=== PATIENT | male | born 1945 | race Caucasian/White ===

== ENCOUNTER 2018-07-10 14:08 | Outpatient (RCR) | payer SELFPAY | END 2018-07-10 23:59 | disposition home or self-care (01) | LOC: CR 14:08 | PROVIDERS: PCP Family Medicine; Visit Provider Family Medicine | DX: Z95.1 Presence of aortocoronary bypass graft (principal); Z51.89 Encounter for other specified aftercare | CPT/HCPCS: S9472 ==

== ENCOUNTER 2018-08-07 13:18 | Outpatient (RCR) | payer SELFPAY | END 2018-08-09 23:59 | disposition home or self-care (01) | LOC: CR 13:18 | PROVIDERS: PCP Family Medicine; Visit Provider Family Medicine | DX: Z95.1 Presence of aortocoronary bypass graft (principal); Z51.89 Encounter for other specified aftercare | CPT/HCPCS: S9472 ==

== ENCOUNTER 2018-08-14 13:00 | Outpatient (RCR) | payer MEDICARE, SELFPAY | END 2018-08-20 08:54 | disposition other institution (70) | LOC: CR 13:00 | PROVIDERS: PCP Family Medicine; Visit Provider Family Medicine | DX: Z95.1 Presence of aortocoronary bypass graft (principal); Z51.89 Encounter for other specified aftercare ==

== ENCOUNTER 2018-09-03 00:29 | Outpatient (CLI) | payer MEDICARE, BC, SELFPAY ==
--- NOTE | 2018-09-03 14:05 | MERGE_ITS ---
*[facility]* * Cardiology* [address] [place] [address] Date of study: 09/03/2018 Transthoracic Echocardiography M-mode, complete 2D, complete spectral Doppler, and color Doppler *STUDY CONCLUSIONS* Summary: 1. Left ventricle: The cavity size was normal. Wall thickness was increased in a pattern of mild LVH. There was mild focal basal hypertrophy of the septum. Systolic function was at the lower limits of normal. The estimated ejection fraction was 50-55%. Wall motion was normal; there were no regional wall motion abnormalities. 2. Right ventricle: The cavity size was at the upper limits of normal. Systolic function was normal. 3. Ventricular septum: Septal motion showed paradoxical motion consistent with post surgery. 4. Left atrium: The atrium was mildly dilated. 5. Aortic valve: There was moderate regurgitation. 6. Mitral valve: Prior procedures included surgical repair. There was mild regurgitation. Mean gradient (D): 5mm Hg. *PATIENT PRESENTATION* Height: 175.3cm ((69in) ) S/D Pressure: 134 / 62 Weight: 95.3kg ((209.6lb) ) BSA: 2.18m^2 Test start time: 02:10 PM. Test stop time: 03:20 PM. PERFORMING Unknown ORDERING Nate Iqbal REFERRING Nate Iqbal PERFORMING [facility] BUSINESS CONTINUITY MANAGEMENT DIRECTOR RT Caryn (R)(CT), FRANCESCO *PROCEDURE DATA* Procedure information: The patient was identified by two identifiers. This study was interpreted by [facility]. Pertinent images and digital data are archived for permanent storage and are available for subsequent review. Comparison was made to the study of 06/30/2015. Study status: Routine. Transthoracic echocardiography. M-mode, complete 2D, complete spectral Doppler, and color Doppler. A Transthoracic Echocardiogram was performed. Scanning was performed from the parasternal, apical, subcostal, and suprasternal notch acoustic windows. Images were obtained using an [id number] cardiac ultrasound machine. Image quality was adequate. Study completion: The patient tolerated the procedure well. There were no complications. History: PMH: S/p mitral valve repair. Other specified post procedural states. *CARDIAC ANATOMY* Left ventricle: The cavity size was normal. Wall thickness was increased in a pattern of mild LVH. There was mild focal basal hypertrophy of the septum. Systolic function was at the lower limits of normal. The estimated ejection fraction was 50-55%. Wall motion was normal; there were no regional wall motion abnormalities. Aortic valve: Trileaflet; mildly thickened leaflets. Mobility was not restricted. Doppler: Transvalvular velocity was within the normal range. There was no stenosis. There was moderate regurgitation. VTI ratio of LVOT to aortic valve: 0.88. Valve area (VTI): 3cm^2. Indexed valve area (VTI): 1.4cm^2/m^2. Peak velocity ratio of LVOT to aortic valve: 0.85. Valve area (Vmax): 2.9cm^2. Indexed valve area (Vmax): 1.3cm^2/m^2. Mean velocity ratio of LVOT to aortic valve: 0.85. Valve area (Vmean): 2.9cm^2. Indexed valve area (Vmean): 1.3cm^2/m^2. Mean gradient (S): 4.4mm Hg. Peak gradient (S): 7.6mm Hg. Aorta: Aortic root: The aortic root was mildly dilated (38 mm). Ascending aorta: The ascending aorta was normal in size. Mitral valve: Mildly thickened leaflets. Prior procedures included surgical repair. Doppler: Transvalvular velocity was within the normal range. There was no evidence for stenosis. There was mild regurgitation. Valve area by pressure half-time: 2.2cm^2. Indexed valve area by pressure half-time: 1cm^2/m^2. Mean gradient (D): 5mm Hg. Left atrium: The atrium was mildly dilated. Right ventricle: The cavity size was at the upper limits of normal. Systolic function was normal. Ventricular septum: Septal motion showed paradoxical motion consistent with post surgery. Pulmonic valve: Poorly visualized. Doppler: Transvalvular velocity was within the normal range. There was no evidence for stenosis. There was mild regurgitation. Tricuspid valve: Structurally normal valve. Doppler: Transvalvular velocity was within the normal range. There was no evidence for stenosis. There was mild regurgitation. Pulmonary artery: Poorly visualized. Pulmonary systolic pressure was within the normal range, in the range of 25mm Hg to 30mm Hg. Right atrium: The atrium was normal in size. Pericardium: There was no pericardial effusion. Systemic veins: Inferior vena cava: Not well visualized. The vessel was patent and dilated. The respirophasic diameter changes were blunted (less than 50%), consistent with elevated central venous pressure. Measurements Left ventricle Value Reference LV ID, ED, PLAX 5.9 cm 3.5 - 6.0 LV ID, ES, PLAX (H) 4.2 cm 2.1 - 4.0 LV PW thickness, ED, PLAX 1.2 cm LV end-diastolic volume, 1-p A2C 125 ml LV ejection fraction, 1-p A2C 50 % LV end-diastolic volume, 1-p A4C 131 ml LV ejection fraction, 1-p A4C 54 % LV e', lateral 0.095 m/sec LV E/e', lateral 12 LV e', medial 0.051 m/sec LV E/e', medial 23 LV e', average 0.073 m/sec LV E/e', average 16 Ventricular septum Value Reference IVS thickness, ED, PLAX 0.9 cm LVOT Value Reference LVOT ID, A-P 2.1 cm LVOT area 3.4 cm^2 LVOT peak velocity, S 1.17 m/sec LVOT mean velocity, S 0.85 m/sec LVOT VTI, S 30.7 cm LVOT peak gradient, S 5.5 mm Hg LVOT mean gradient, S 3.3 mm Hg Stroke volume (SV), LVOT DP 106 ml Stroke index (SV/bsa), LVOT DP 48 ml/m^2 Aortic valve Value Reference Aortic valve peak velocity, S 1.4 m/sec Aortic valve mean velocity, S 1 m/sec Aortic valve VTI, S 35.0 cm Aortic mean gradient, S 4.4 mm Hg Aortic peak gradient, S 7.6 mm Hg VTI ratio, LVOT/AV 0.88 Aortic valve area, VTI 3 cm^2 Velocity ratio, peak, LVOT/AV 0.85 Aortic valve area, peak velocity 2.9 cm^2 Velocity ratio, mean, LVOT/AV 0.85 Aortic valve area, mean velocity 2.9 cm^2 Aortic valve area/bsa, mean velocity 1.3 cm^2/m^2 Aortic regurg deceleration 292 cm/s^2 Aortic regurg pressure half-time 379 ms Aorta Value Reference Aortic root ID, ED 3.8 cm Ascending aorta ID, A-P, S 3.6 cm RVOT Value Reference RVOT VTI, S 21.6 cm Left atrium Value Reference LA ID, A-P, ES 5.0 cm LA ID/bsa, A-P (H) 2.3 cm/m^2 <=2.2 LA area, ES, A4C (H) 24.7 cm^2 8.8 - 23.4 LA area, ES, A2C 22 cm^2 LA volume/bsa, ES, 1-p A4C 45 ml/m^2 LA volume, ES, 2-p 77 ml LA volume/bsa, ES, 2-p 35 ml/m^2 LA/aortic root ratio 1.3 Mitral valve Value Reference Mitral E-wave peak velocity 1.17 m/sec Mitral A-wave peak velocity 1.29 m/sec Mitral deceleration time (H) 351 ms 150 - 230 Mitral pressure half-time 102 ms Mitral mean gradient, D 5 mm Hg Mitral E/A ratio, peak 0.91 Mitral valve area, PHT, DP 2.2 cm^2 Pulmonary veins Value Reference Pulmonary vein peak velocity, S 0.52 m/sec Pulmonary vein peak velocity, D 0.66 m/sec Pulmonary vein velocity ratio, peak, 0.79 S/D Tricuspid valve Value Reference Tricuspid regurg peak velocity 2.4 m/sec Tricuspid peak RV-RA gradient 23.3 mm Hg Right atrium Value Reference RA area, ES, A4C 17.9 cm^2 8.3 - 19.5 Legend: (L) and (H) jolie values outside specified reference range. I have personally reviewed the images and have reviewed and edited the reported findings. Electronically signed by Lacie Frazier 09/04/2018 12:56
== END 2018-09-03 00:49 ==
PROVIDERS: PCP Family Medicine; Visit Provider Student in an Organized Health Care Education/Training Program
DX: I25.9 Chronic ischemic heart disease, unspecified (principal); I35.1 Nonrheumatic aortic (valve) insufficiency; I34.0 Nonrheumatic mitral (valve) insufficiency; I10 Essential (primary) hypertension; Z95.2 Presence of prosthetic heart valve; Z95.1 Presence of aortocoronary bypass graft
CPT/HCPCS: 93306

== ENCOUNTER 2018-09-09 13:00 | Outpatient (RCR) | payer SELFPAY | END 2018-09-09 23:59 | disposition home or self-care (01) | LOC: CR 13:00 | PROVIDERS: PCP Family Medicine; Visit Provider Family Medicine | DX: Z95.1 Presence of aortocoronary bypass graft (principal); Z51.89 Encounter for other specified aftercare | CPT/HCPCS: S9472 ==

== ENCOUNTER → 2018-09-23 10:58 | Outpatient (BNVA) | payer MEDICARE, BC, SELFPAY | PROVIDERS: PCP Family Medicine; Visit Provider Student in an Organized Health Care Education/Training Program | DX: R69 Illness, unspecified (principal) ==

== ENCOUNTER 2018-09-23 11:35 | Outpatient (CLI) | payer MEDICARE, BC, SELFPAY | END 2018-09-23 11:55 | PROVIDERS: PCP Family Medicine; Visit Provider Student in an Organized Health Care Education/Training Program | DX: I25.810 Atherosclerosis of coronary artery bypass graft(s) without angina pectoris (principal); Z95.1 Presence of aortocoronary bypass graft; I34.1 Nonrheumatic mitral (valve) prolapse; I51.9 Heart disease, unspecified; I48.0 Paroxysmal atrial fibrillation; I11.9 Hypertensive heart disease without heart failure; R01.1 Cardiac murmur, unspecified; Z79.01 Long term (current) use of anticoagulants | CPT/HCPCS: 99214; 93005; 93010 ==

== ENCOUNTER 2018-09-24 01:17 | Outpatient (CLI) | payer MEDICARE, BC, SELFPAY ==
--- NOTE | 2018-09-24 11:24 | DI.US_ITS ---
SYMPTOMS/DIAGNOSIS: CAROTID STENOSIS, I65.29, CAD, BRUIT, I65.23, HTN, AFLUTTER BILATERAL DUPLEX CAROTID ULTRASOUND: Duplex evaluation of the carotid circulation was performed according to the usual protocol. There is visible atheromatous plaque in common carotid artery bilaterally and visible plaque is noted in the carotid bulb and proximal internal carotid artery on the right. There is flow velocity elevation to 463 cm per second in mid ICA region on the right consistent with ICA stenosis near occlusion. Flow velocity in left internal carotid artery is 233 cm per second maximum systolic velocity consistent with greater than 70% luminal diameter stenosis. There is bilateral antegrade vertebral flow. CONCLUSION: 1. Near occlusion right ICA. 2. Greater than 70% luminal diameter stenosis left ICA.
== END 2018-09-24 01:37 ==
PROVIDERS: PCP Family Medicine; Visit Provider Student in an Organized Health Care Education/Training Program
DX: I65.23 Occlusion and stenosis of bilateral carotid arteries (principal); I10 Essential (primary) hypertension; I48.92 Unspecified atrial flutter
CPT/HCPCS: 93880

== ENCOUNTER 2018-09-29 07:46 | Outpatient (CLI) | payer MEDICARE, BC, SELFPAY ==
[2018-09-29 10:56] LABS: TSH (W/Ref FT4) 2.05 uIU/mL (0.358-3.74)
[2018-09-29 11:01] LABS: Cholesterol 137 mg/dL (50-200); HDL Cholesterol 46 mg/dL (40-60); LDL CHOLESTEROL 81 mg/dL (<100); Triglyceride 84 mg/dL (30-150)
== END 2018-09-29 08:06 ==
PROVIDERS: PCP Family Medicine; Visit Provider Student in an Organized Health Care Education/Training Program
DX: I48.0 Paroxysmal atrial fibrillation (principal); I25.10 Atherosclerotic heart disease of native coronary artery without angina pectoris
CPT/HCPCS: 36415; 80061; 83721; 84443

== ENCOUNTER 2018-09-30 02:08 | Outpatient (CLI) | payer MEDICARE, BC, SELFPAY ==
--- NOTE | 2018-10-20 16:54 | ZIOP_ITS ---
DATE OF DICTATION: October 20, 2018 STUDY INDICATION: Paroxysmal atrial fibrillation. REQUESTING PROVIDER: Nate Iqbal M.D. FINDINGS: The patient was monitored for fourteen days. The predominant underlying rhythm was sinus rhythm. Average heart rate in sinus rhythm 60 bpm, range 42-113 bpm. There was rare supraventricular ectopy. There was no atrial fibrillation. There was very frequent ventricular ectopy, 15.2% PVC's. There were eight ventricular runs, average heart rate 128 bpm, range 81-210 bpm. The longest episode lasted 10 beats with an average heart rate of 105 bpm. There was a single pause of 3.1 seconds at 9:40 p.m. There was no high-degree heart block. There were no patient events. FINAL INTERPRETATION: Frequent PVC's.
== END 2018-09-30 02:28 ==
PROVIDERS: PCP Family Medicine; Visit Provider Student in an Organized Health Care Education/Training Program
DX: I48.0 Paroxysmal atrial fibrillation (principal); I49.3 Ventricular premature depolarization
CPT/HCPCS: 93225

== ENCOUNTER 2018-10-09 13:25 | Outpatient (RCR) | payer SELFPAY | END 2018-10-09 23:59 | disposition home or self-care (01) | LOC: CR 13:25 | PROVIDERS: PCP Family Medicine; Visit Provider Family Medicine | DX: Z95.1 Presence of aortocoronary bypass graft (principal); Z51.89 Encounter for other specified aftercare | CPT/HCPCS: S9472 ==

== ENCOUNTER 2018-10-20 16:28 | Outpatient (CLI) | payer MEDICARE, BC, SELFPAY | END 2018-10-20 16:48 | PROVIDERS: PCP Family Medicine; Referring Provider Student in an Organized Health Care Education/Training Program; Visit Provider Student in an Organized Health Care Education/Training Program | DX: I48.0 Paroxysmal atrial fibrillation (principal); I49.3 Ventricular premature depolarization | CPT/HCPCS: 0298T ==

== ENCOUNTER → 2018-10-28 08:51 | Outpatient (BNVA) | payer MEDICARE, BC, SELFPAY | PROVIDERS: PCP Family Medicine; Visit Provider Student in an Organized Health Care Education/Training Program | DX: R69 Illness, unspecified (principal) ==

== ENCOUNTER → 2018-10-28 08:51 | Outpatient (BNVA) | payer MEDICARE, BC, SELFPAY | PROVIDERS: PCP Family Medicine; Visit Provider Student in an Organized Health Care Education/Training Program | DX: I25.810 Atherosclerosis of coronary artery bypass graft(s) without angina pectoris (principal); I34.9 Nonrheumatic mitral valve disorder, unspecified; Z95.818 Presence of other cardiac implants and grafts; I51.9 Heart disease, unspecified; I34.0 Nonrheumatic mitral (valve) insufficiency; I48.0 Paroxysmal atrial fibrillation; I11.9 Hypertensive heart disease without heart failure | CPT/HCPCS: 99214 ==

== ENCOUNTER 2018-11-09 12:57 | Outpatient (RCR) | payer SELFPAY | END 2018-11-09 23:59 | disposition home or self-care (01) | LOC: CR 12:57 | PROVIDERS: PCP Family Medicine; Visit Provider Family Medicine | DX: Z95.1 Presence of aortocoronary bypass graft (principal); Z51.89 Encounter for other specified aftercare | CPT/HCPCS: S9472 ==

== ENCOUNTER 2018-12-09 13:00 | Outpatient (RCR) | payer SELFPAY | END 2018-12-10 23:59 | disposition home or self-care (01) | LOC: CR 13:00 | PROVIDERS: PCP Family Medicine; Visit Provider Family Medicine | DX: Z95.1 Presence of aortocoronary bypass graft (principal); Z51.89 Encounter for other specified aftercare | CPT/HCPCS: S9472 ==

== ENCOUNTER 2019-01-04 11:00 | Outpatient (RCR) | payer SELFPAY | END 2019-01-07 23:59 | disposition home or self-care (01) | LOC: CR 11:00 | PROVIDERS: PCP Family Medicine; Visit Provider Family Medicine | DX: Z95.1 Presence of aortocoronary bypass graft (principal); Z51.89 Encounter for other specified aftercare | CPT/HCPCS: S9472 ==

== ENCOUNTER 2019-01-19 07:46 | Outpatient (CLI) | payer MEDICARE, BC, SELFPAY ==
[2019-01-19 08:36] LABS: Abs Immature Grans 0.01 k/cumm (0.0-0.09); Absolute Basophil Count 0.02 k/cumm (0.0-0.2); Absolute Eosinophil Count 0.47 k/cumm (0.0-0.7); Absolute Lymphocyte Count 1.29 k/cumm (1.2-3.4); Absolute Monocyte Count 0.54 k/cumm (0.11-0.7); Absolute Neutrophil Count 4.02 k/cumm (1.2-6.7); Basophils % 0.3; Eosinophils % 7.4; HCT 41.8 % (40.0-50.0); HGB 13.9 g/dL (13.5-17.5); Immature Grans % 0.2; Lymphocytes % 20.3; Mean Corp. HGB Concentration 33.3 g/dL (32.0-36.0); Mean Corpuscular Hemoglobin 30.5 pg (27.0-33.0); Mean Corpuscular Volume 91.9 fL (80-95); Mean Platelet Volume 10.3 fL (8.0-11.0); Monocytes % 8.5; Neutrophils % 63.3; Platelet Count 139 x1000/uL (130-400); RBC 4.55 m/cumm (4.50-6.00); RBC Distribution Width 13.8 % (11.8-14.1); White Blood Cell Count 6.35 k/cumm (4.4-10.8)
[2019-01-19 09:51] LABS: ALT 16 U/L (12-78); AST 33 U/L (15-37); Alkaline Phosphatase 93 U/L (46-116); Anion Gap 7.9 mmol/L (3-11); BUN 24 mg/dL (7-18); Bilirubin, Total 1.2 mg/dL (0.2-1.0); CO2 31.1 mmol/L (21.0-32.0); Calcium 9.4 mg/dL (8.5-10.1); Chloride 103 mmol/L (98-107); Estimated GFR 59.51 (mL/min/1.73m2); Glucose 102 mg/dL (70-100); Sodium 142 mmol/L (136-145); Total Protein 7.1 g/dL (6.4-8.2)
[2019-01-19 10:07] LABS: Cholesterol 128 mg/dL (50-200); HDL Cholesterol 49 mg/dL (40-60); LDL CHOLESTEROL 62 mg/dL (<100); Triglyceride 89 mg/dL (30-150)
== END 2019-01-19 08:06 ==
PROVIDERS: PCP Family Medicine; Visit Provider Student in an Organized Health Care Education/Training Program
DX: I25.10 Atherosclerotic heart disease of native coronary artery without angina pectoris (principal); E78.5 Hyperlipidemia, unspecified; D50.8 Other iron deficiency anemias
CPT/HCPCS: 36415; 80053; 80061; 83721; 85025

== ENCOUNTER → 2019-01-27 09:46 | Outpatient (BNVA) | payer MEDICARE, BC, SELFPAY | PROVIDERS: PCP Family Medicine; Visit Provider Student in an Organized Health Care Education/Training Program | DX: I65.23 Occlusion and stenosis of bilateral carotid arteries (principal); I25.810 Atherosclerosis of coronary artery bypass graft(s) without angina pectoris; I10 Essential (primary) hypertension; I34.1 Nonrheumatic mitral (valve) prolapse; I50.1 Left ventricular failure, unspecified; I48.0 Paroxysmal atrial fibrillation | CPT/HCPCS: 99214 ==

== ENCOUNTER 2019-02-05 15:20 | Outpatient (RCR) | payer SELFPAY | END 2019-02-07 23:59 | disposition home or self-care (01) | LOC: CR 15:20 | PROVIDERS: PCP Family Medicine; Visit Provider Family Medicine | DX: Z95.1 Presence of aortocoronary bypass graft (principal); Z51.89 Encounter for other specified aftercare | CPT/HCPCS: S9472 ==

== ENCOUNTER 2019-03-03 13:00 | Outpatient (RCR) | payer SELFPAY | END 2019-03-09 23:59 | disposition home or self-care (01) | LOC: CR 13:00 | PROVIDERS: PCP Family Medicine; Visit Provider Family Medicine | DX: Z95.1 Presence of aortocoronary bypass graft (principal); Z51.89 Encounter for other specified aftercare | CPT/HCPCS: S9472 ==

== ENCOUNTER 2019-04-09 13:16 | Outpatient (RCR) | payer SELFPAY | END 2019-04-09 23:59 | disposition home or self-care (01) | LOC: CR 13:16 | PROVIDERS: PCP Family Medicine; Visit Provider Family Medicine | DX: Z95.1 Presence of aortocoronary bypass graft (principal); Z51.89 Encounter for other specified aftercare | CPT/HCPCS: S9472 ==

== ENCOUNTER 2019-05-07 13:21 | Outpatient (RCR) | payer SELFPAY | END 2019-05-09 23:59 | disposition home or self-care (01) | LOC: CR 13:21 | PROVIDERS: PCP Family Medicine; Visit Provider Family Medicine | DX: Z95.1 Presence of aortocoronary bypass graft (principal); Z51.89 Encounter for other specified aftercare | CPT/HCPCS: S9472 ==

== ENCOUNTER 2019-05-19 10:23 | Outpatient (REF) | payer MEDICARE, BC, SELFPAY | END 2019-05-19 10:43 | LOC: LBN 10:23 | PROVIDERS: PCP Family Medicine; Visit Provider Family Medicine | DX: K59.1 Functional diarrhea (principal); K52.9 Noninfective gastroenteritis and colitis, unspecified | CPT/HCPCS: 87329; 87206; 87324 ==

== ENCOUNTER 2019-06-09 13:39 | Outpatient (RCR) | payer SELFPAY | END 2019-06-09 23:59 | disposition home or self-care (01) | LOC: CR 13:39 | PROVIDERS: PCP Family Medicine; Visit Provider Family Medicine | DX: Z95.1 Presence of aortocoronary bypass graft (principal); Z51.89 Encounter for other specified aftercare | CPT/HCPCS: S9472 ==

== ENCOUNTER 2019-07-02 13:00 | Outpatient (RCR) | payer SELFPAY | END 2019-07-10 23:59 | disposition home or self-care (01) | LOC: CR 13:00 | PROVIDERS: PCP Family Medicine; Visit Provider Family Medicine | DX: Z95.1 Presence of aortocoronary bypass graft (principal); Z51.89 Encounter for other specified aftercare | CPT/HCPCS: S9472 ==

== ENCOUNTER 2019-07-22 07:39 | Outpatient (CLI) | payer MEDICARE, BC, SELFPAY ==
[2019-07-22 09:11] LABS: Calculated LDL 76 mg/dL; Cholesterol 146 mg/dL (50-200); HDL Cholesterol 51 mg/dL (40-60); Triglyceride 95 mg/dL (30-150)
== END 2019-07-22 07:59 ==
PROVIDERS: PCP Family Medicine; Visit Provider Student in an Organized Health Care Education/Training Program
DX: I25.10 Atherosclerotic heart disease of native coronary artery without angina pectoris (principal)
CPT/HCPCS: 36415; 80061

== ENCOUNTER → 2019-07-28 10:21 | Outpatient (BNVA) | payer MEDICARE, BC, SELFPAY | PROVIDERS: PCP Family Medicine; Visit Provider Student in an Organized Health Care Education/Training Program | DX: I65.23 Occlusion and stenosis of bilateral carotid arteries (principal); I48.92 Unspecified atrial flutter; Z95.1 Presence of aortocoronary bypass graft; Z98.890 Other specified postprocedural states; I10 Essential (primary) hypertension | CPT/HCPCS: 99215 ==

== ENCOUNTER 2019-07-29 07:43 | Outpatient (CLI) | payer MEDICARE, BC, SELFPAY ==
[2019-07-29 08:06] LABS: Abs Immature Grans 0.02 k/cumm (0.0-0.09); Absolute Basophil Count 0.04 k/cumm (0.0-0.2); Absolute Lymphocyte Count 1.34 k/cumm (1.2-3.4); Absolute Monocyte Count 0.58 k/cumm (0.11-0.7); Absolute Neutrophil Count 3.42 k/cumm (1.2-6.7); Basophils % 0.7; Eosinophils % 8.5; HCT 40.8 % (40.0-50.0); HGB 13.5 g/dL (13.5-17.5); Immature Grans % 0.3; Lymphocytes % 22.7; Mean Corp. HGB Concentration 33.1 g/dL (32.0-36.0); Mean Corpuscular Hemoglobin 30.1 pg (27.0-33.0); Mean Corpuscular Volume 91.1 fL (80-95); Mean Platelet Volume 9.6 fL (8.0-11.0); Monocytes % 9.8; Platelet Count 163 x1000/uL (130-400); RBC 4.48 m/cumm (4.50-6.00); RBC Distribution Width 14.4 % (11.8-14.1)
[2019-07-29 08:17] LABS: Prothrombin Time 10.4 sec (9.3-11.0)
[2019-07-29 09:27] LABS: ALT 7 U/L (16-63); AST 33 U/L (15-37); Albumin 4.1 g/dL (3.4-5.0); Alkaline Phosphatase 100 U/L (46-116); Anion Gap 7.6 mmol/L (3-11); BUN 18 mg/dL (7-18); CO2 30.4 mmol/L (21.0-32.0); CREATININE 0.99 mg/dL (0.70-1.30); Calcium 9.3 mg/dL (8.5-10.1); Calculated LDL 82 mg/dL; Chloride 103 mmol/L (98-107); Cholesterol 158 mg/dL (50-200); Glucose 104 mg/dL (70-100); HDL Cholesterol 55 mg/dL (40-60); Magnesium 1.9 mg/dL (1.8-2.4); Potassium 4.1 mmol/L (3.5-5.1); Sodium 141 mmol/L (136-145); Triglyceride 106 mg/dL (30-150)
[2019-07-29 09:35] LABS: Bilirubin, Direct 0.21 mg/dL (0.00-0.20)
== END 2019-07-29 08:03 ==
PROVIDERS: PCP Family Medicine; Visit Provider Student in an Organized Health Care Education/Training Program
DX: I25.10 Atherosclerotic heart disease of native coronary artery without angina pectoris (principal); I48.92 Unspecified atrial flutter; I10 Essential (primary) hypertension; I65.23 Occlusion and stenosis of bilateral carotid arteries
CPT/HCPCS: 36415; 80048; 80061; 80076; 85027; 83735; 85025; 85610

== ENCOUNTER 2019-08-09 13:00 | Outpatient (RCR) | payer SELFPAY | END 2019-08-09 23:59 | disposition home or self-care (01) | LOC: CR 13:00 | PROVIDERS: PCP Family Medicine; Visit Provider Family Medicine | DX: Z95.1 Presence of aortocoronary bypass graft (principal); Z51.89 Encounter for other specified aftercare | CPT/HCPCS: S9472 ==

== ENCOUNTER 2019-09-08 13:29 | Outpatient (RCR) | payer SELFPAY | END 2019-09-09 23:59 | disposition home or self-care (01) | LOC: CR 13:29 | PROVIDERS: PCP Family Medicine; Visit Provider Family Medicine | DX: Z95.1 Presence of aortocoronary bypass graft (principal); Z51.89 Encounter for other specified aftercare | CPT/HCPCS: S9472 ==

== ENCOUNTER 2019-09-29 13:00 | Outpatient (RCR) | payer SELFPAY | END 2019-10-09 23:59 | disposition home or self-care (01) | LOC: CR 13:00 | PROVIDERS: PCP Family Medicine; Visit Provider Family Medicine | DX: Z95.1 Presence of aortocoronary bypass graft (principal); Z51.89 Encounter for other specified aftercare | CPT/HCPCS: S9472 ==

== ENCOUNTER 2019-11-05 14:07 | Outpatient (RCR) | payer SELFPAY | END 2019-11-09 23:59 | disposition home or self-care (01) | LOC: CR 14:07 | PROVIDERS: PCP Family Medicine; Visit Provider Family Medicine | DX: Z95.1 Presence of aortocoronary bypass graft (principal); Z51.89 Encounter for other specified aftercare | CPT/HCPCS: S9472 ==

== ENCOUNTER 2019-12-10 13:02 | Outpatient (RCR) | payer SELFPAY | END 2019-12-10 23:59 | disposition home or self-care (01) | LOC: CR 13:02 | PROVIDERS: PCP Family Medicine; Visit Provider Family Medicine | DX: Z95.1 Presence of aortocoronary bypass graft (principal); Z51.89 Encounter for other specified aftercare | CPT/HCPCS: S9472 ==

== ENCOUNTER 2020-01-07 13:35 | Outpatient (RCR) | payer SELFPAY | END 2020-01-08 23:59 | disposition home or self-care (01) | LOC: CR 13:35 | PROVIDERS: PCP Family Medicine; Visit Provider Family Medicine | DX: Z95.1 Presence of aortocoronary bypass graft (principal); Z51.89 Encounter for other specified aftercare | CPT/HCPCS: S9472 ==

== ENCOUNTER 2020-01-17 13:00 | Outpatient (RCR) | payer SELFPAY | END 2020-02-08 23:59 | disposition home or self-care (01) | LOC: CR 13:00 | PROVIDERS: PCP Family Medicine; Visit Provider Family Medicine | DX: Z95.1 Presence of aortocoronary bypass graft (principal); Z51.89 Encounter for other specified aftercare | CPT/HCPCS: S9472 ==

== ENCOUNTER → 2020-03-20 14:01 | Outpatient (BNVA) | payer MEDICARE, BC, SELFPAY | PROVIDERS: PCP Family Medicine; Referring Provider Family Medicine; Visit Provider Internal Medicine Cardiovascular Disease | DX: I10 Essential (primary) hypertension; I25.9 Chronic ischemic heart disease, unspecified; I25.10 Atherosclerotic heart disease of native coronary artery without angina pectoris; Z95.5 Presence of coronary angioplasty implant and graft | CPT/HCPCS: 99204; 99443 ==

== ENCOUNTER → 2020-05-22 13:36 | Outpatient (BNVA) | payer MEDICARE, BC, SELFPAY | PROVIDERS: PCP Family Medicine; Referring Provider Family Medicine; Visit Provider Internal Medicine Cardiovascular Disease | DX: I25.89 Other forms of chronic ischemic heart disease (principal); Z98.890 Other specified postprocedural states; I10 Essential (primary) hypertension | CPT/HCPCS: 99213 ==

== ENCOUNTER 2020-11-09 03:27 | Outpatient (CLI) | payer MEDICARE, BC, SELFPAY ==
[2020-11-11 13:56] LABS: COVID-19 RT-PCR UVMMC Result Negative (Negative)
== END 2020-11-09 03:47 ==
PROVIDERS: PCP Family Medicine; Visit Provider Internal Medicine Sleep Medicine
DX: Z11.59 Encounter for screening for other viral diseases (principal); Z01.818 Encounter for other preprocedural examination
CPT/HCPCS: U0003

== ENCOUNTER → 2020-12-01 13:30 | Outpatient (BNVA) | payer MEDICARE, BC, SELFPAY | PROVIDERS: PCP Family Medicine; Visit Provider Internal Medicine Cardiovascular Disease | DX: I25.9 Chronic ischemic heart disease, unspecified (principal); Z98.890 Other specified postprocedural states; I10 Essential (primary) hypertension; E78.5 Hyperlipidemia, unspecified | CPT/HCPCS: 99213 ==

== ENCOUNTER 2021-02-05 10:29 | Day surgery (SDC) | payer MEDICARE, BC, SELFPAY ==
[2021-02-05 10:30] VITALS: BP 138/68; PULSE 63; RESP 16; TEMP 35.8; O2SAT 98
[2021-02-05] MEDS: Tropicam./Phenyleph. (1/2.5%) 5 ML BTL OD ×3 (10:53→11:06)
--- NOTE | 2021-02-05 11:39 | W.PM.DSUDISC ---
Discharge Plan Disposition Patient Disposition: HOME Condition: Good Discharge Details Attending Provider: Isra Robertson Primary Care Provider: Johnathon Palm Home Meds and New Rx's Prescriptions: No Action atorvastatin 80 mg tablet 80 mg PO DAILY Qty: 90 RF: 3 clindamycin HCl 300 mg capsule 600 mg PO PRN Qty: 2 RF: 12 metoprolol succinate 100 mg tablet extended release 24 hr 100 mg PO DAILY Qty: 90 RF: 3 ezetimibe [Zetia] 10 mg tablet 10 mg PO QHS Qty: 90 RF: 6 amlodipine 5 mg tablet 5 mg PO DAILY Qty: 90 RF: 3 cholecalciferol (vitamin D3) [Vitamin D3] 1,000 UNIT capsule 1,000 unit PO DAILY Qty: 100 RF: 6 acetaminophen [Acetaminophen Extra Strength] 500 MG tablet 1,000 mg PO Q6H PRN RF: 0 fluticasone propionate 16 GM spray,suspension 2 inh NS BID PRNQty: 1 RF: 11 niacinamide [Niacin (niacinamide)] 500 mg tablet 500 mg PO BID RF: 0 lisinopril-hydrochlorothiazide 20-25 mg tablet 1 tab PO DAILY 90 Days Qty: 90 RF: 3 clopidogrel 75 mg tablet 75 mg PO DAILY Qty: 90 RF: 3 lisinopril 10 mg tablet 10 mg PO DAILY RF: 0 Discharge Instructions Stand Alone Forms: Post-op Topical Cataract, Briana Ganey (DSU) Discharge Orders Discharge Orders: Discharge Order (Routine); Ordered 02/05/21 Ordered By: Isra Robertson DS: Diagnosis Discharge Diagnosis (1) Cortical cataract of right eye: Status: Resolved (2) Nuclear sclerotic cataract of right eye: Status: Resolved
[2021-02-05] MEDS: Tetracaine 0.5% 4 ML BTL OD (11:45)
[2021-02-05] MEDS: Lidocaine 2% Jelly 6 ML SYR (11:46)
[2021-02-05] MEDS: Povidone-Iodine Ophth 30 ML BTL (11:46)
[2021-02-05] MEDS: Balanced Salt Soln.-PLUS 500 ML BAG (11:55)
[2021-02-05] MEDS: Duovisc Viscoelastic System EACH 1 EACH (11:56)
[2021-02-05] MEDS: Lidocaine 1% Pres-Free 5 ML VIAL (11:56)
--- NOTE | 2021-02-05 12:22 | ROE_ITS ---
Date of service: 02/05/21 Time of Service: 12:22 Operative Note Operative Note DATE OF PROCEDURE: 02/05/21 PRE-OP DIAGNOSIS: Nuclear/cortical cataract, right eye POST-OP DIAGNOSIS: same PROCEDURE: Cataract extraction using phacoemulsification with intraocular lens implant, right eye SURGEON: Isra Robertson ANESTHESIA TYPE: Local By Surgeon and MAC Refer to Anesthesia Record ESTIMATED BLOOD LOSS: 0 PATHOLOGY: none sent COMPLICATIONS: None Patient was transported to: same day Patient's condition: stable Implants: E[employer]iel [employer] / [employer] Tecnis [id number] intraocular lens Indications: Progressive decreased vision due to cataract, right eye Procedure Description: CATARACT SURGERY OPERATIVE REPORT PREOPERATIVE DIAGNOSIS: Nuclear/cortical cataract, right eye POSTOPERATIVE DIAGNOSIS: Same OPERATION: Cataract extraction using phacoemulsification with posterior chamber intraocular lens implant, right eye. IOL: IOL Outpatient Physical Therapist Assistant/Model: [employer] / JIA Tecnis ZCB00 IOL Power: + 21.5 diopters IOL Serial Number: [id number] Optic Diameter: 6.0mm Haptic/Overall Diameter: 13.0mm PHACO INFO: [employer] Vision System with OZil and Active [employer]uidics Cumulative Dispersed Energy (CDE): 24.65 seconds SURGEON: Isra Robertson MD, CRISSY ANESTHESIA: Monitored Anesthesia Care (MAC), with local sub-tenon's anesthetic infiltration COMPLICATIONS: None SPECIMENS: None INDICATIONS FOR PROCEDURE: The patient is a 75-year-old gentleman with history of diminished visual acuity in his right eye. He is noted to have a dense nuclear and cortical cataract in the right eye. He has previously undergone cataract surgery in the left eye in 2005 to remove a dense cataract there. The option of cataract surgery was offered to the patient in his right eye and he wished to proceed. Postoperative refractive target is approximately -1.0 diopters. PROCEDURE: The correct surgical eye was identified and marked as the right eye and the pupil was dilated in the preoperative area using mydriatics and cycloplegics. The dilated pupil size was 7.0 mm. He elected to proceed without oral sedation.. The patient was brought to the operating room where cardiopulmonary monitoring was instituted and surgical time-out was performed, confirming the correct operative eye and IOL power. Topical anesthesia was administered and ophthalmic povidone-iodine 5% was instilled into the conjunctival fornices. Lidocaine gel was applied to the cornea and the arthur-ocular area was prepped with Betadine 10% solution and draped in the usual sterile fashion for intraocular surgery, including an ape rture drape. A Tegaderm transparent film dressing was cut in half and used to cover the lashes and lid margins. Care was taken to sequester the lashes and lid margins under the Tegaderm dressing. A lid speculum was placed between the lids of the operative eye and the Lenny-Darryl operating microscope was maneuvered into position. Michael scissors were then used to make a conjunctival buttonhole approximately 6mm posterior to the limbus in the inferonasal quadrant. Blunt dissection was carried out to expose bare sclera, and a blunt-tipped sub-tenon?s anesthesia cannula was introduced and passed posteriorly along the globe where non- preserved plain lidocaine was injected into posterior sub-Tenon?s space. A sideport knife was used to make a paracentesis port inferiortemporally. Intraocular phenylephrine/lidocaine was injected into the anterior chamber. The anterior chamber was then filled with viscoelastic. A 2.4mm keratome knife was used to create a half-thickness groove at the limbus and then to construct a three-plane near-clear corneal tunnel extending 2.0mm into clear cornea in the superiortemporal position. . A flap was raised on the anterior capsule and capsulorhexis forceps were used to complete a continuous curvilinear capsulorhexis of 5.5 mm. Balanced salt solution was then used to perform cortical cleaving hydrodissection and nuclear hydrodelineation until the lens could be freely rotated within the capsular bag. The lens nucleus was then disassembled and removed within the capsular bag and iris plane using phacoemulsification. Residual cortical material was removed using the I/A handpiece. The posterior capsule was carefully polished to remove as much residual lens epithelial cells as safely possible. The capsular bag was then inflated and the anterior chamber deepened with viscoelastic. The lens implant described above was inserted into the capsular bag using the JIA Naknek Injector. A Kuglen hook was used to dial the IOL into position. Residual viscoelastic was then removed first from posterior to the IOL, then from the anterior chamber using the I/A handpiece. The lens implant was noted to center nicely within the capsular bag. The incisions were stromally hydrated, and the anterior chamber was reformed using BSS. Then 0.5cc of moxifloxacin 1.0mg/ml were injected into the capsular bag and anterior chamber. The incisions were checked with a Weck spear and found to be secure. Several drops of ophthalmic povidone-iodine 5% were then applied to the eye followed by two drops of Imprimis combination prednisolone/moxifloxacin/nepafenac solution. The drapes were removed and a clear plastic protective eye shield was placed over the eye. The patient was then returned to Same Day Surgery in stable condition.
== END 2021-02-05 12:50 | disposition home or self-care (01) ==
PROVIDERS: PCP Family Medicine; Visit Provider Ophthalmology
PROC: (CPT 66984; principal; 2021-02-05 13:30)
DX: H25.011 Cortical age-related cataract, right eye (principal); H25.11 Age-related nuclear cataract, right eye; Z96.1 Presence of intraocular lens; Z98.42 Cataract extraction status, left eye
CPT/HCPCS: 66984; V2632

== ENCOUNTER 2021-05-08 13:00 | Outpatient (RCR) | payer SELFPAY ==
--- OUTSIDE RECORDS SUMMARY | 2021-04-10 11:11 | XMS_ITS ---
:1945 Author Care Team Providers Name Role Phone GINNY RABAGO ([facility]) Primary Care Provi clark [phone] [facility] REC[facility] Primary Care Provider [phone] Allergies Code Code System Name Reaction Severity Status Onset Penicillins ? ? Active ? Medications Name Status Start Date Stop Date ? ? amlodipine Active ? Not available 5mg 1x a day atorvastatin 80 mg tablet Active ? Not av ailable clindamycin HCl 300 mg capsule Active ? N ot available clopidogrel 75 mg tablet Active ? Not lina ilable ezetimibe 10 mg tablet Active ? Not avail able fluorouracil 5 % topical cream Active ? N ot available latanoprost 0.005 % eye drops Active ? No t available lisinopril 20 mg-hydrochlorothiazide 25 mg Active ? Not available tablet Lumigan 0.01 % eye drops Active ? Not lina ilable metoprolol succinate ER 100 mg Active ? N ot available tablet,extended release 24 hr tamsulosin 0.4 mg capsule Active ? Not av ailable Vitamin D3 Active ? Not available 2000 i.u daily Problems Name Status Onset Date Source ? Obesity Active ? History Obstructive Sleep Apnea Syndrome Active ? History Arteriosclerosis of Coronary Artery Bypass Active ? History Graft Secondary Pulmonary Hypertension Active ? History Mitral Valve Regurgitation Active ? Histo ry Paroxysmal Atrial Fibrillation Active ? H istory Procedure by Method Unknown ? History Respiratory Finding Unknown ? History Procedures Date Name Performed by ? ? Cardiac Surgery Information not avai lable Notes: Triple bypass 2006 ? Tonsillectomy Information not avai lable Notes: As a child Results Lab Results None recorded. Past Encounters 02/19/2021 Obstructive Sleep Apnea Syndrome; Markell -Guzman Respiration Bea Ware MD, Board Certified Sleep Ph ysician: [address] [place] [address] [address], [place] [address], Ph. 11/27/2020 Obstructive Sleep Apnea Syndrome Bea Ware MD, Board Certified Sleep Ph ysician: [address] [place] [phone], Ph. 09/18/2020 Obstructive Sleep Apnea Syndrome Bea Ware MD, Board Certified Sleep Ph ysician: [address] [place] [address] [address], [place] [id number], Ph. Social History Tobacco Smoking Status Never Smoker Vaccine List None recorded. Plan of Care Patient Instructions Your EKG on the sleep study (limite d view due to one channel) looked abnormal. some of the periods appeared to be afib, other periods, difficult to determine. I am going to review your cardiology r ecords to see if there's a history of th is and compare. You will have regular follow up with you r special services coordinator. For the sleep breathing, we decided it w ould be best to keep using your cpap machine. I am going to adjust the setting slightly. I'll have Char do that. Also try avoiding sleeping on your back if you can tolerate. one product is called slumber bump, but there are others that look like it on line where you attach a pack on the back that prevents you to getting in the back position for sleep Follow up 3 months. Your EKG on the sleep study (limite d view due to one channel) looked abnormal. some of the periods appeared to be afib, other periods, difficult to determine. I am going to review your cardiology r ecords to see if there's a history of th is and compare. You will have regular follow up with you r special services coordinator. For the sleep breathing, we decided it w ould be best to keep using your cpap machine. I am going to adjust the setting slightly. I'll have Char do that. Also try avoiding sleeping on your back if you can tolerate. one product is called slumber bump, but there are others that look like it on line where you attach a pack on the back that prevents you to getting in the back position for sleep Follow up 3 months. We went over data from your cpap gail quinonez. It suggests that we may be able to further optimize your sleep apnea treatment. You never had follow up or titration sleep study back in 2015, this may keri y well have been due to scheduling issue s at our sleep clinic back then. We will proceed w/ the sleep study now. First we will get permission to do the titration sleep study, then we will call you to schedule as well as get covid 19 testing prior. We will then sit back down to go over th e results. If there are any obvious changes, I may even ask Char to change your machine settings before our next follow up. Reminders Provider Appointments None recorded. ? ? Lab None recorded. ? ? Referral None recorded. ? ? Procedures None recorded. ? ? Surgeries None recorded. ? ? Imaging None recorded. ? ? Vitals 02/19/2021 10:30AM Office 15 Height Weight BMI 175.26 cm 83.91 kg 27.3 kg/m2 11/27/2020 12:30PM Office 30 Height 175.26 cm 09/18/2020 01:15PM New Patient 45 Height Weight BMI Blood Pressure 175.26 cm 88.68 kg 28.9 kg/m2 163/66 mm[Hg] 11/30/2015 Height Weight Blood Pressure 175.26 cm 105.91 kg 136/68 mm[Hg] 11/23/2015 Height Weight Blood Pressure 175.26 cm 106.14 kg 142/60 mm[Hg]
--- OUTSIDE RECORDS SUMMARY | 2021-04-10 11:11 | XMS_ITS | Encounter Summary ---
:1945 Author Care Team Providers Name Role Phone Johnathon Yehudanito ([facility]) Primary Care Provi clark [phone] [facility] Medical Records Primary Care Provider [phone] Reason for Visit Telehealth visit - Patient at home Assessment and Plan Assessment Note I provided greater than 30 minutes in th e care of this patient, more than half the time was spent in [id number] counseling. The patient is home . The provider is tammy tinoco . The patient has been positively identifi ed and has consented to a telehealth visit. This visit was performed virtually using synchronous audio-visual connection via Zoom. As such, the physical examination is necessarily limited. The risks and benefits of the use of this alternative lexis tform were discussed with the parent and verbal consent was obtained. My assessment and plans are based on such examination. Further evaluation, including in-person examination, may be needed depending on the response to management or today's recommendation. 1. Obstructive sleep apnea syndr ome Moderate HARISH AHI 14.9/hr RDI 1 7/hr REM AHI 50.8/hr. only supine sleep seen. 5 min O2<= 88%. 11/30/2015: went over PSG results, ordere d titration PSG, pt agreed to start apap 5 to 15cm via KMP. 09/18/20: Patients with moderate HARISH lost to follow up after 11/30/2015 when he agreed to start cpap therapy. Been on apap 5 to 15cm since then, and experiences good benefit with improved sleep quality, s leeping thru the night, and improved day time energy. However this is first time that his cpap data is being reviewed since he started, and I am concerned of suboptimal treatment of his HARISH given his tx AHI is 12.4/hr and daily details reveal parts of night with very frequent events and even periods of periodic breathing. I recommend proceeding with titration PSG which was originally ordered in 2016 bu t not executed. Pt is very agreeable to do so. He was using quite dated mask but current one is new 2 months ago and mask leak does not appear large. ddx mask fit issues, suboptimal pressures, possible Markell fine respirations. we will bett er evaluate/treat at titration PSG.he was agreeable to covid test. 11/26/20: very frequent ASSOCIATE CONSULTING ENGINEER seen on titra tion PSG whether in cpap, bipap or even ASV. lateral position showed much less ASSOCIATE CONSULTING ENGINEER tendency. cpap at 7 or 8cm worked well for beginning period of supien NREM slee p for obstructive events before ASSOCIATE CONSULTING ENGINEER appe ared. tho I wonder if the ASV setting may have been suboptimal on titration w/ such high Emax. Either way, patient reports excellent benefit on cpap therapy and joann bobby potential risk of inc morbidity/mor tality on ASV therapy in a low EF patient population (last EF was 50 to 55%, so there is risk it may go bit lower and hit the threshold of 45% that was studied), we made mutual decision to stay on cpap. will adj pressure to apap 5 to 12cm. also advised him to stay OFF his back as tolerated, including using slumber bump type device. 02/19/21: AHI has decreased to 9.6/hr fro m 13 and leak has improved after decreasing upper pressure last visit. continue apap 5 to 12cm + positional therapy to avoid back sleep. ? sleep apnea: care instruct ions 2. Markell-Fine respiration 02/19/21: suspect ASSOCIATE CONSULTING ENGINEER seen is 2 /2 afib. but pt has seen his nozzle tender after last visit and discussed this w/ h er, and will be geting echo in April. will check on these results at next visit in May 2021. Discussion Note Remember to always take precautio ns on drowsy driving. If you experience sleepiness while driving, find a safe area to gizzard puller and take a break. Research suggests taking a power nap (15 to 20 martinez deanna) and/or coffee (or caffeine containi ng food such as dark chocolate) may be effective aides. As always, you should use your judgement on whether to drive at all, if you are sleep deprived or feeling sleepy. Thank you for the kind opportunity to pa rticipate in your medical care. You expressed good understanding of your diagnosis and treatment, and agreed to proceed with the plan we discussed together. If yo u have any questions or concerns prior t o your next appointment, please call Sleep Clinic. Plan of Care Patient Instructions Your EKG on the sleep study (limite d view due to one channel) looked abnormal. some of the periods appeared to be afib, other periods, difficult to determine. I am going to review your cardiology r ecords to see if there's a history of th is and compare. You will have regular follow up with you r nozzle tender. For the sleep breathing, we decided it w ould be best to keep using your cpap machine. I am going to adjust the setting slightly. I'll have [place] do that. Also try avoiding sleeping on your back if you can tolerate. one product is called slumber bump, but there are others that look like it on line where you attach a pack on the back that prevents you to getting in the back position for sleep Follow up 3 months. Reminders Provider Appointments Office 30 06/04/2021 Bea Ware MD, 10:30AM Board Certified Sleep Physician Lab None ? ? recorded. Referral None ? ? recorded. Procedures None ? ? recorded. Surgeries None ? ? recorded. Imaging None ? ? recorded. Medications Name Start Date ? ? amlodipine ? 5mg 1x a day atorvastatin 80 mg tablet ? clindamycin HCl 300 mg capsule ? clopidogrel 75 mg tablet ? ezetimibe 10 mg tablet ? fluorouracil 5 % topical cream ? latanoprost 0.005 % eye drops ? lisinopril 20 mg-hydrochlorothiazide 25 mg tablet ? Lumigan 0.01 % eye drops ? metoprolol succinate ER 100 mg tablet,extended release 24 hr ? tamsulosin 0.4 mg capsule ? Vitamin D3 ? 2000 i.u daily Medications Administered None recorded. Vitals Height Weight BMI 5 ft 9 in 185 lbs 27.3 kg/m2 Results Lab Results None recorded. Allergies Code Code System Name Reaction Severity Onset Penicillins ? ? ? Problems Name Status Onset Date Source ? Obesity Active ? History Obstructive Sleep Apnea Syndrome Active ? 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 History Secondary Pulmonary Hypertension Active ? History Mitral Valve Regurgitation Active ? Histo ry Paroxysmal Atrial Fibrillation Active ? H istory Procedures Date Name Performed by ? ? Cardiac Surgery Information not avai lable Notes: Triple bypass 2006 ? Tonsillectomy Information not avai lable Notes: As a child Vaccine List None recorded. Social History Tobacco Smoking Status Never Smoker Alcohol intake Occasional Notes: 2 glasses of wine a week Live alone or with others? with others Notes: wif e Animal exposure? N Blind or serious difficulty seeing N Not es: wears glasses Hard of hearing or deaf in one or N Note s: age related both ears? Caffeine intake Occasional Notes: 2 cups of coffee a day 2 cups of tea a day Drug Use N Functional Status No Impairment. Past Encounters 02/19/2021 Obstructive Sleep Apnea Syndrome; Markell -Fine Respiration Bea Ware MD, Board Certified Sleep Ph ysician: [address] [place] [address] [address], [place] [address], Ph. History of Present Illness Note: <p>

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
</p><p>Comorbidities include h/o CAD s/p CABG, Hypertension, Paroxysmal Atrial Fibrillation, Mitral Regurgitation with Pulmonary Hypertension s/p [facility]</p><p><span></span>
<strong>PREVIOUS SLEEP EVALUATION: </strong>
Seen by me for initial consultation on 11/23/2015 due to snoring, he did not endorse significant daytime or sleep-related symptoms. However, the evaluation was prompted by comorbid Mitral Valve Regurgitation associated with Pulmonary Hypertension, and pending cardiac surgery for MVR.</p><p>
</p><p>Diagnostic Polysomnogram on 11/27/2015 showed Moderate Obstructive Sleep Apnea associated with mild nocturnal hypoxemia. AHI 14.9/hr, RDI 17.0/hr, REM AHi 50.8/hr. Only supine sleep observed. Christiano SpO2 78% on RA, 5 Minutes with SpO2 less than 88%. Arousal index 7/hr. PLM index 0.1/hr. NSR with PVCs. HR 40 to 71. No Markell Fine respirations.</p><p>
</p><p>He was last seen on 11/30/2015 when he got PSG results and agreed to start apap 5 to 15cm via KMP. Titration PSG wasordered. However he then appeared lost to follow up and never complete titration.</p><p>
</p><p>He came back for re-eval on 09/18/20 due to needing new cpap supplies.< /p><p>
</p><p>Titration PSG on 11/13/20 (Wt 195 lbs/bmi 28.8) showed:</p><p>1. CPAP, BIPAP and ASV titration for patient originally diagnosed with Moderate Obstructive Sleep Apnea in 2015, now seen with Severe Central Sleep Apnea associated with Markell Fine Respirations (ASSOCIATE CONSULTING ENGINEER) with cycle length of approximately 75 seconds during titration study.</p><p>2. Optimal settings including in CPAP, BIPAP and ASV were not found with overall AHI during titration at 40/hr. This is due to frequent Markell Fine Respirations during supine position sleep on alltested pressures in CPAP, BIPAP and surprisingly even in ASV.</p><p>3. Patient appeared the most comfortable on CPAP therapy, maintaining oxygen levels in the normal range (SpO>90%) and remained in sleep state aside from some arousals from sleep. He appeared less comfortable breathing with the BIPAP and had a lot more wake after sleep periods. This was also true during the only test ed ASV setting at Max Pressure 25 Bret 4 Emax 25 PSmin 0 PSmax 15 Rate 10bpm. It is unclear why the Emax 25 parameter was chosen and may have been a reason why ASV was ineffective to resolve the ASSOCIATE CONSULTING ENGINEER.</p><p>4. CPAP 8cmH2O appeared to resolve obstructive sleep apnea during Supine NREM sleep.The best observed period was at the end of the study when patient exhibited his only period of Lateral position sleep in NREM on above ASV setting. He still had a few central hypopneas but overall did not show</p><p>5. Resmed Airfit F20, Full Face Mask in Size Medium, showed acceptable leak profile.</p><p>6. Atrial Fibrillation observed, consistent with patient’s medical history.</p><p>7. No PLMD.</p><p><span></span>
<strong>TODAY: using auto cpap 5 to 12cm via airfit f20 medium. </strong></p><p>
See A&P section for details</p> Review of Systems ? Notes: <p>A 14-point <strong>REVIEW OF SYSTEM</strong> was obtained and reviewed, includes CONSTITUTIONAL, EYE S, ALLERGY, NEUROLOGIC, ENDOCRINE, GI, CARDIOVASCULAR, SKIN, MSK, E NT, , RESPIRATORY, HEMATOLOGIC, PSYCH systems. Pertinent symptoms are discu ssed in history, otherwise negative.</p><p>nocturia< /p><p>joint pain, hands, ankles</p> Physical Exam ? Notes: <p>GENERAL: {{well appearing # chronically ill appearing}}, appearing {{stated# older than younger than}} age, no acute distress, {{normal* tall lean}} build< br>HEENT: atraumatic skull, anicteric
RESPIRATORY: qu iet respiration, able to speak in full sentences without dyspnea, no accessor y muscle use,
SKIN: no facial skin rash, no facial skin lesions
PSYCH IATRIC: well groomed, fluent speech, good insight, linear thought process, good eye contact, {{balanced# flat}} affect
NEUROLOGIC: alert, oriented, symmetric facial expression

<strong>Cl inical Data Reviewed:</strong>

1. {{Modified Pediatric Wright Sleepiness Scale Wright Sleepiness Scale*}}: 3 out of {{24# 21 due to not d riving}}.
2. {{Sleep study results as above.* Sleep study results not available, requested Unable to obtain sleep study reports}}

4. {{ Lab results as outlined. * Labs pending.}}Covid PCR Neg 11/13/20 (before titra tion)

5. Machine Download Data:
{{Resmed AirSense 10 Auto CPAP Resmed AirSense 10 Auto BIPAP Respironics Dreamstation Auto CPAP* Respironics Dream station Auto BIPAP}}
PAP Settings: {{Auto CPAP# Auto BIPAP CPAP BIPAP} } {{5 to 12# }} CmH2O
Date Range: {{ *}} to {{02/14# }}
<strong>Days with Usage >=4 hours: {{Over 70 100*}} %</s odilia>
<strong>Avg Usage per Day Used: {{1 2 3 4 5 6 7 8* 9 10}} Ho urs {{27# 0}} Minutes</strong>
Mean/Median Pressure: {{7.5# number____} } cmh2O
90th-tile/95th-tile Pressure: {{10.7# number____}} cmH2O<b r>{{Avg Time in Large Leak Daily- # Median-90th%tile Leak: Cleo k:}} {{32 sec# Not significant Significant leak}}
<strong>Average AHI: {{9.6# enter}} per hour</strong>
{{Normal flow limitation index. * Abn ormal flow limitation index. }}
{{Normal vibratory snore index. * Abn ormal vibratory snore index. }}
{{Daily details do not show significant arthur ods at maximum pressure Daily details shows significant periods at maxim um pressure*}}
</p><p><span>avg OA at 6/hr. % nt in PB at 2.5%</span></p>< p>
</p><p><span>6. Echocardiogram. 06/30/2015 </span>[place]<span> TTE: LVEF 55-60%. Hypokinesis of anteroseptal myocardium. Mitral valve wit h severe regurgitation. LA severely dilated. RV cavity size normal, wall thi ckness normal, systolic function normal. RA mildly dilated. Tricuspid valve mod erate </span>regurg<span>. Pulmonary arteries: systolic pressure moderately increased, PA peak pressure </span>47mmHg<span>.</span>< /p><p>
</p><p>RAJESH. 09/27/2015 RAJESH at [facility] (prior to Mitral valve repai r): eccentric posterolaterally directed wall jet of moderate to severe (3+/4+ ) mitral regurg with systolic blunting of pulmonary venous flow. left atrium likely moderately dilated. normal global LV function, EF 65%. RV chamber size, wall thickness, systolic function normal. Mild (1+/4+) aortic valve re gurg. Mild (1+/4+) tricuspid regurg.</p><p>
</p><p> TTE 09/03/19 [facility]. mild focal basal hypertrophy of septum. mild LVH. EF 50 to 5 5%. Moderate AR. mild MR.</p>
[2021-04-10 13:00] VITALS: BP 146/69; PULSE 59
[2021-04-12 13:04] VITALS: BP 145/67; PULSE 68; O2SAT 96
[2021-04-17 13:02] VITALS: BP 156/67; PULSE 62
[2021-04-19 13:03] VITALS: BP 156/74; PULSE 51
[2021-04-24 13:03] VITALS: BP 122/56; PULSE 62
[2021-05-03 13:05] VITALS: BP 126/60; PULSE 54
[2021-05-08 13:04] VITALS: BP 159/75; PULSE 58
== END 2021-05-09 23:59 | disposition home or self-care (01) ==
LOC: CR 13:00
PROVIDERS: PCP Family Medicine; Visit Provider Family Medicine
DX: Z51.89 Encounter for other specified aftercare (principal)

== ENCOUNTER 2021-06-04 00:45 | Outpatient (CLI) | payer MEDICARE, BC, SELFPAY ==
--- NOTE | 2021-06-04 08:15 | DI.US_ITS ---
APPROVED REPORT EXAM: Comprehensive 2D, Doppler, and color-flow Echocardiogram Patient Location: Out-Patient Client Leader: Mago Horton RDCS (AE) Indications: Mitral valve repair, Chronic ischemic heart disease,CABG Other Information Study Quality: Adequate Conclusion Left Ventricle : The left ventricle is normal size. The left ventricular systolic function is normal. The left ventricular ejection fraction is within the normal range. There is normal left ventricular wall thickness. There is normal LV segmental wall motion. LVEF is 57%. Right Ventricle : The right ventricle is normal size. The right ventricular systolic function is norm al. The RVSP is 29.9mmHg. Atria : The left atrium size is normal. The right atrium size is normal. Aortic Valve : The aortic valve is normal in structure. Aortic valve is trileaflet. Moderate aortic r egurgitation. Mitral Valve : Mitral annuloplasty changes are present. Mild mitral regurgitation. No evidence of mango ral valve stenosis. Great Vessels : The aortic root is normal in size. The ascending aorta is mildly dilated. IVC is norm al in size and collapses >50% with inspiration. Please see remainder of study for further details. Wall motion Left Ventricle The left ventricle is normal size. The left ventricular systolic function is normal. The left ventric ular ejection fraction is within the normal range. There is normal left ventricular wall thickness. T here is normal LV segmental wall motion. There is no ventricular septal defect visualized. LVEF is 57 %. Right Ventricle The right ventricle is normal size. The right ventricular systolic function is normal. The RVSP is 29 .9mmHg. Atria The left atrium size is normal. The right atrium size is normal. The interatrial septum is intact wit h no evidence for an atrial septal defect. Aortic Valve The aortic valve is normal in structure. Aortic valve is trileaflet. There is no aortic valvular sten osis. Moderate aortic regurgitation. Mitral Valve Mitral annuloplasty changes are present. No evidence of mitral valve stenosis. Mild mitral regurgitat ion. Tricuspid Valve The tricuspid valve is normal in structure. There is no tricuspid valve stenosis. Mild tricuspid regu rgitation. Pulmonic Valve The pulmonary valve is normal in structure. There is no pulmonic valvular stenosis. Trace pulmonic re gurgitation. Great Vessels The aortic root is normal in size. The ascending aorta is mildly dilated. IVC is normal in size and c ollapses >50% with inspiration. Pericardium There is no pericardial effusion. 2D Dimensions IVSD d PLAX 1.12 cm M: 0.6-1.2 LV Vol A2C d MOD 107.9 mL LVPW d PLAX 1.10 cm M: 0.6 - 1.2 LV Vol A4C d MOD 152.4 mL LVID d PLAX 4.99 cm M: 4.2 - 5.8 LA vol/ BSA A2C s A-L 30.4 mL/m2 LVDs 3.45 cm M: 2.5 - 4.0 LA vol/ BSA A4C s A-L 33.0 mL/m2 Ao Root d 3.67 cm M: 3.1 - 3.7 LA Vol/ BSA Biplane s A-L 33.7 mL/m2 RA Area A4C 17.80 cm2 LA Area A4C s MOD 21.86 cm2 RA Vol/ BSA A4C s A-L 26.2 mL/m2 LA Area A2C s MOD 19.73 cm2 Ao Asc Diam d 3.75 cm M: 2.6 - 3.4 LV EF A4C MOD 57.7 % LV EF Teichholz 58.1 % LV EF A2C MOD 57.1 % LVEF (Ndiaye's) 56.35 % M: 52 - 72 LV EF Biplane MOD 56.3 % LV Volume 99.25 mL M: 62 - 150 SV 74.55 mL LV Volume Index 49.62 mL/m2 M: 34 - 74 SV Index 37.31 mL/m2 LV Vol Biplane MOD 132.3 mL FS 30.75 % M-Mode TAPSE 1.57 cm (M/F) >1.7 LV Diastology E/A Ratio 1.5 MV E Vmax 1.62 (0.4-1.3 m/s) MV A Vmax 1.05 (0.4-1.3 m/s) MV E/A Ratio 1.50 Aortic Valve LVOT Area 3.80 cm2 AoV Area Vmax 3.68 cm2 LVOT Vmax 1.28 m/s AoV Area/ BSA (Vmax) 1.84 cm2/m2 LVOT Mean Nate. 0.76 m/s MERCEDES Mean Nate. 3.15 cm2 LVOT Peak Grad 6.5 mmHg MERCEDES Mean Nate. Index 1.58 cm2/m2 LVOT Mean Grad 2.8 mmHg AR DT 1811 msec LVOT VTI 0.318 m AR PHT 525 msec LVOT Diam s 2.20 cm AoV Vmax 1.32 m/s Velocity Ratio 0.96 AoV Mean Nate. 0.91 m/s AoV Peak Grad 7.0 mmHg LVOT SV 120.89 mL AoV Mean Grad 3.7 mmHg AoV VTI 0.314 m AoV Area VTI 3.85 cm2 AoV Area/ BSA (VTI) 1.93 cm/m2 Mitral Valve MV DT 255 (160-240 msec) MR Vmax 5.38 m/s MV PHT 74 msec MR VTI 1.693 m MV Area PHT 2.98 cm2 MR Peak Grad 115.7 mmHg MV VTI 0.510 m MR Mean Grad 80.7 mmHg MV VTI Annulus 0.518 m MV Area VTI 2.41 (4.0-6.0 cm2) Pulmonary Valve PV Vmax 0.90 (0.5-1.5 m/s) RVOT Peak Gr. 2.28 mmHg PV Peak Grad 3.2 mmHg RVOT Mean Gr. 1.25 mmHg PV Mean Grad 1.7 mmHg RVOT VTI 0.168 m PV VTI 0.196 m RVOT Vmax 0.75 m/s Tricuspid Valve TR Peak Grad 26.8 mmHg TR Vmax 2.59 m/s RA Pressure 3.00 mmHg RVSP (TR) 29.9 mmHg
== END 2021-06-04 01:05 ==
PROVIDERS: PCP Family Medicine; Visit Provider Internal Medicine Cardiovascular Disease
DX: I25.9 Chronic ischemic heart disease, unspecified (principal); Z95.2 Presence of prosthetic heart valve; Z95.1 Presence of aortocoronary bypass graft; I77.810 Thoracic aortic ectasia; I08.3 Combined rheumatic disorders of mitral, aortic and tricuspid valves
CPT/HCPCS: 93306

== ENCOUNTER 2021-06-07 13:00 | Outpatient (RCR) | payer SELFPAY ==
[2021-05-10 00:12] VITALS: BP 159/75; PULSE 58
[2021-05-10 13:07] VITALS: BP 155/70; PULSE 69; O2SAT 97
[2021-05-15 13:08] VITALS: BP 123/60; PULSE 79; O2SAT 97
[2021-05-17 13:01] VITALS: BP 132/61; PULSE 59
[2021-05-22 13:16] VITALS: BP 145/60; PULSE 69
[2021-05-24 13:14] VITALS: BP 133/67; PULSE 65
[2021-05-29 13:06] VITALS: BP 154/64; PULSE 62
[2021-05-31 13:18] VITALS: BP 146/63; PULSE 58
[2021-06-05 13:06] VITALS: BP 158/70; PULSE 58
[2021-06-07 13:06] VITALS: BP 134/58; PULSE 65
== END 2021-06-09 23:59 | disposition home or self-care (01) ==
LOC: CR 13:00
PROVIDERS: PCP Family Medicine; Visit Provider Family Medicine
DX: Z51.89 Encounter for other specified aftercare (principal)

== ENCOUNTER → 2021-06-22 13:04 | Outpatient (BNVA) | payer MEDICARE, BC, SELFPAY | PROVIDERS: PCP Family Medicine; Referring Provider Family Medicine; Visit Provider Internal Medicine Cardiovascular Disease | DX: I25.9 Chronic ischemic heart disease, unspecified (principal); Z98.890 Other specified postprocedural states | CPT/HCPCS: 99214 ==

== ENCOUNTER 2021-07-10 13:00 | Outpatient (RCR) | payer SELFPAY ==
[2021-06-10 00:07] VITALS: BP 134/58; PULSE 65
[2021-06-12 13:07] VITALS: BP 143/66; PULSE 58
[2021-06-14 13:05] VITALS: BP 130/67; PULSE 67
[2021-06-21 13:01] VITALS: BP 147/68; PULSE 56
[2021-06-26 13:54] VITALS: BP 138/60; PULSE 50
[2021-06-28 13:10] VITALS: BP 147/64; PULSE 56
[2021-07-03 13:00] VITALS: BP 151/64; PULSE 61
[2021-07-05 13:03] VITALS: BP 147/67; PULSE 53
[2021-07-10 13:58] VITALS: BP 157/68; PULSE 60
== END 2021-07-10 23:59 | disposition home or self-care (01) ==
LOC: CR 13:00
PROVIDERS: PCP Family Medicine; Visit Provider Family Medicine
DX: Z51.89 Encounter for other specified aftercare (principal)

== ENCOUNTER 2021-08-09 13:00 | Outpatient (RCR) | payer SELFPAY ==
[2021-07-11 00:18] VITALS: BP 157/68; PULSE 60
[2021-07-12 13:15] VITALS: BP 140/60; PULSE 59
[2021-07-17 13:08] VITALS: BP 146/71; PULSE 60
[2021-07-19 13:06] VITALS: BP 160/58; PULSE 67
[2021-07-31 13:06] VITALS: BP 167/67; PULSE 57
[2021-08-02 13:54] VITALS: BP 146/71; PULSE 59
[2021-08-07 13:31] VITALS: BP 166/78; PULSE 67
[2021-08-09 13:05] VITALS: BP 155/78; PULSE 72
== END 2021-08-09 23:59 | disposition home or self-care (01) ==
LOC: CR 13:00
PROVIDERS: PCP Family Medicine; Visit Provider Family Medicine
DX: Z51.89 Encounter for other specified aftercare (principal)

== ENCOUNTER 2021-08-31 02:05 | Outpatient (CLI) | payer MEDICARE, BC, SELFPAY ==
[2021-08-31 09:46] LABS: Anion Gap 6.7 mmol/L (3-11); BUN 19 mg/dL (7-18); CO2 31.3 mmol/L (21.0-32.0); Calcium 9.1 mg/dL (8.5-10.1); Chloride 104 mmol/L (98-107); Glucose 96 mg/dL (74-106); Potassium 4.2 mmol/L (3.5-5.1); Sodium 142 mmol/L (136-145)
== END 2021-08-31 02:06 | disposition home or self-care (01) ==
LOC: LBO 02:05
PROVIDERS: PCP Family Medicine; Visit Provider Family Medicine
DX: I10 Essential (primary) hypertension (principal)
CPT/HCPCS: 36415; 80048

== ENCOUNTER 2021-09-06 13:00 | Outpatient (RCR) | payer SELFPAY ==
[2021-08-10 00:09] VITALS: BP 155/78; PULSE 72
[2021-08-14 13:06] VITALS: BP 156/74; PULSE 75
[2021-08-16 13:05] VITALS: BP 158/68; PULSE 67
[2021-08-21 13:16] VITALS: BP 151/66; PULSE 47
[2021-08-23 14:08] VITALS: BP 128/69; PULSE 68
[2021-08-28 13:03] VITALS: BP 148/72; PULSE 63
[2021-08-30 13:05] VITALS: BP 136/71; PULSE 56
[2021-09-04 14:32] VITALS: BP 154/60; PULSE 51
[2021-09-06 15:05] VITALS: BP 163/68; PULSE 67
== END 2021-09-09 23:59 | disposition home or self-care (01) ==
LOC: CR 13:00
PROVIDERS: PCP Family Medicine; Visit Provider Family Medicine
DX: Z51.89 Encounter for other specified aftercare (principal); R69 Illness, unspecified

== ENCOUNTER → 2021-10-01 10:55 | Outpatient (BNVA) | payer MEDICARE, BC, SELFPAY | PROVIDERS: PCP Family Medicine; Referring Provider Family Medicine; Visit Provider Surgery | DX: K40.90 Unilateral inguinal hernia, without obstruction or gangrene, not specified as recurrent (principal); G47.33 Obstructive sleep apnea (adult) (pediatric); I10 Essential (primary) hypertension | CPT/HCPCS: 99214; 99242 ==

== ENCOUNTER 2021-10-09 13:00 | Outpatient (RCR) | payer SELFPAY ==
[2021-09-10 00:07] VITALS: BP 163/68; PULSE 67
[2021-09-18 13:09] VITALS: BP 170/66; PULSE 53
[2021-09-20 13:09] VITALS: BP 153/92; PULSE 56
[2021-09-27 13:03] VITALS: BP 130/71; PULSE 67
[2021-10-02 13:05] VITALS: BP 162/73; PULSE 70
[2021-10-09 13:25] VITALS: BP 168/69; PULSE 61
== END 2021-10-09 23:59 | disposition home or self-care (01) ==
LOC: CR 13:00
PROVIDERS: PCP Family Medicine; Visit Provider Family Medicine
DX: Z51.89 Encounter for other specified aftercare (principal); R69 Illness, unspecified

== ENCOUNTER 2021-10-29 01:56 | Outpatient (CLI) | payer MEDICARE, BC, SELFPAY ==
[2021-10-29 10:32] LABS: Source Nasal/Nares
[2021-10-29 14:01] LABS: COVID-19 PCR Negative (Negative)
== END 2021-10-29 01:57 | disposition home or self-care (01) ==
PROVIDERS: PCP Family Medicine; Visit Provider Surgery
DX: Z20.822 Contact with and (suspected) exposure to COVID-19 (principal); Z01.818 Encounter for other preprocedural examination
CPT/HCPCS: 87635

== ENCOUNTER 2021-10-30 06:10 | Day surgery (SDC) | payer MEDICARE, BC, SELFPAY ==
--- NOTE | 2021-10-29 12:29 | ROE_ITS ---
Date of service: 10/30/21 Operative Note Operative Note DATE OF PROCEDURE: 10/30/21 PRE-OP DIAGNOSIS: Open right inguinal hernia w/ mesh POST-OP DIAGNOSIS: same SURGEON: Lamar Jacome WASTE MACHINE TENDER: Katherine Stokes ANESTHESIA TYPE: Local By Surgeon, General LMA/ETT and Primary Nerve Block Refer to Anesthesia Record COMPLICATIONS: None Patient was transported to: PACU Patient's condition: stable Procedure Description: At the time of induction, patient did experience some bradycardia. Patient also had a very difficult intubation. We were not able to get a ET tube past his cords. We were able to ventilate him through an LMA. Anesthesia did do a bronchoscopy and we were able to run the bronchoscope through the ports. There were no masses. He did have some mild swelling and edema along the arytenoid cartilage cartilages. He did receive steroids intraoperatively. We were unable to successfully place an ET tube, for what ever reason. And I refer you to anesthesia department notes. Because of the difficult airway situation and the bradycardia, the procedure was abandoned. Patient was successfully woken up. Again he did receive steroids. He did not have any problems with postop stridor/breathing. He was taken to PACU. He had some additional bradycardia down into the 40s in PACU. He is on metoprolol and did take that medication today. He did not experience any chest pain or shortness of breath with these episodes. His blood pressure appeared stable. He has no stridor. He has no noticeable neck masses or bulges. He does not feel short of breath and his O2 sats are normal. He has had carotid stenting in the past. CT scan/angio of the neck is pending. EKG and labs were ordered and there these are normal-see [employer] for results
--- NOTE | 2021-10-29 12:30 | W.PM.DSUDISC ---
Discharge Plan Disposition Patient Disposition: HOME Condition: Good Discharge Details Reason For Visit: hernia repair Attending Provider: Lamar Jacome Primary Care Provider: Johnathon Palm Home Meds and New Rx's Prescriptions: No Action atorvastatin 80 mg tablet 80 mg PO DAILY Qty: 90 RF: 3 clindamycin HCl 300 mg capsule 600 mg PO PRN Qty: 2 RF: 12 ezetimibe [Zetia] 10 mg tablet 10 mg PO QHS Qty: 90 RF: 6 amlodipine 5 mg tablet 5 mg PO DAILY Qty: 90 RF: 3 clopidogrel 75 mg tablet 75 mg PO DAILY Qty: 90 RF: 3 cholecalciferol (vitamin D3) [Vitamin D3] 1,000 UNIT capsule 1,000 unit PO DAILY Qty: 100 RF: 6 acetaminophen [Acetaminophen Extra Strength] 500 MG tablet 1,000 mg PO Q6H PRN RF: 0 fluticasone propionate 16 GM spray,suspension 2 inh NS BID PRNQty: 1 RF: 11 niacinamide [Niacin (niacinamide)] 500 mg tablet 500 mg PO BID RF: 0 lisinopril 10 mg tablet 10 mg PO DAILY Qty: 90 RF: 3 metoprolol succinate 100 mg tablet extended release 24 hr 100 mg PO DAILY Qty: 90 RF: 3 lisinopril-hydrochlorothiazide 20-25 mg tablet 1 tab PO DAILY 90 Days Qty: 90 RF: 3 latanoprost 0.005 % drops 1 drp ophthalmic (eye) HS RF: 0 Discharge Instructions Additional Instructions: -take all your medications as previously prescribed. -re-start plavix on Friday10/31/21. -light meals and activity today -Regular diet and activities in am Cardiology will call w/ appointment. F/u Dr. Jacome in 3-4 wks DSU Post-Op Instructions Instructions for Everyone who is given Anesthesia: For your safety, please do the following for the next twenty-four (24) hours: *Do Not operate a motor vehicle (car, truck, motorcycle, etc.) *Do Not drink alcoholic beverages or use any recreational drugs for the first 24 hours or while taking pain medications. The medications in your body may have a reaction that can be dangerous. *Do Not make any important decisions or sign any important papers. 1. No lifting over 20 pounds or strenuous activity for the first 24 hours after your procedure. After 24 hours there are no restrictions on your activity but you may feel fatigued for a few days. 2. After you arrive home you may have a light meal and return to your normal diet as you can tolerate it without feeling sick to your stomach. Call the office at [phone] (Office) or [phone] (Hospital) right away if you notice any of the following: a.Vomiting of blood or ?coffee ground stools?. b. Chest pain/pressure or shortness of breathe c. Weak/dizzy or feeling like you are going to pass out. I understand the above instructions and have no questions. Signature of Patient or Adult Escort Name of Responsible Adult Escort Signature of Nurse Date/Time Activity:: see above Diet:: see above Discharge Orders Discharge Orders: Discharge Order (Routine); Ordered 10/29/21 Ordered By: Lamar Jacome DS: Diagnosis Discharge Diagnosis (1) Right inguinal hernia: Status: Acute (2) Obstructive sleep apnea of adult: Status: Chronic (3) S/P carotid endarterectomy: Status: Acute (4) Carotid stenosis, bilateral: Status: Chronic (5) Peripheral vascular disease: Status: Chronic (6) Need for prophylactic antibiotic: Status: Chronic (7) Chronic ischemic heart disease, unspecified: Status: Chronic
[2021-10-30] VITALS (15 sets, daily range): BP systolic 117–163; BP diastolic 39–61; PULSE 35–62; RESP 11–18; TEMP 36–36.8; O2SAT 95–99; BMI 28.5
--- NOTE | 2021-10-30 | DI.CT_ITS ---
Exam(s) CT NECK W EXAM: CT NECK W CLINICAL HISTORY: abnormal vocal cords seen on intubation. TECHNIQUE: Imaging Protocol: Axial computed tomography images with coronal and sagittal reformatted images were created and reviewed. CONTRAST MATERIAL: Intravenous: Omnipaque 350 Contrast volume:100 mL COMPARISON: US US carotid from 09/24/2018 US US carotid from 09/24/2018 FINDINGS: Orbits and orbital soft tissues: Within normal limits. Visualized paranasal sinuses: There is mild mucosal thickening in the paranasal sinuses. No fluid l evels are seen. There is a mucous retention cyst or polyp in the right maxillary sinus. Nasopharynx: Within normal limits. Oropharynx: There is rightward deviation of the distal trachea below the level of the thyroid gland. But no significant narrowing is present. Hypopharynx: Within normal limits. Larynx: Within normal limits. Retropharyngeal space: Within normal limits. Parotids/submandibular: Within normal limits. Thyroid gland: There is a heterogeneous mass in the right lobe of the thyroid gland measuring 2.0 tr ansverse by 2.8 AP by 3.6 craniocaudad cm. Lymphadenopathy: There is scattered lymph nodes seen along the level one to level three all measurin g less than 8 mm in short axis diameter which are physiologic in nature. Trachea: There is rightward deviation of the distal trachea below the level of the thyroid gland. No significant narrowing is present. Lung apices: There are calcified granuloma in the lung apices. Bones: Within normal limits. Carotids/Jugular: There is atherosclerosis present. There is marked atherosclerosis seen in the dis sasha right common carotid artery and the proximal right internal carotid artery. Soft tissues: Within normal limits. IMPRESSION: 1. No evidence of a cervical mass or adenopathy. 2. Rightward deviation of the distal trachea below the level of the thyroid gland. No significant na rrowing is present. 3. Right thyroid nodule. Nonemergent thyroid ultrasound is recommended for further evaluation. 4. Results of this exam have been verbally communicated with provider. RADIATION DOSE DELIVERED: 405.27mGy.cm Total DLP 405.27mGy.cm Total DLP DATA REPOSITORY: All CT scans at this facility are submitted to the National Radiology Data Registry (NRDR) Dose Index Registry (DIR) with the [employer] ([employer]). RADIATION OPTIMIZATION: All CT scans at this facility use at least one of these dose optimization te chnimarilynn: automated exposure control; mA and/or kV adjustment per patient size (includes targeted exa ms where dose is matched to clinical indication); or iterative reconstruction.
--- NOTE | 2021-10-30 06:49 | W.ANESPRE ---
General Info Date of Service Date Performed: 10/30/21 Height: 5 ft 9 in Weight: 87.8 kg Body Mass Index (BMI): 28.5 Surgical Procedure: Operation Date: 10/30/21 07:40 Proposed Procedures Side Surgeon p Herniorrhaphy Inguinal Right Lamar Jacome, Meds Allergies and Home Medications Allergies Allergy/AdvReac Type Severity Reaction Status Date / Time Penicillins Allergy Severe Swelling/Ed Verified 10/30/21 06:24 robyn aspirin AdvReac Intermediate iron def Verified 10/30/21 06:24 pollen Allergy Mild unknown Uncoded 10/30/21 06:24 Home Medication Medication Instructions Recorded cholecalciferol (vitamin D3) 1,000 unit PO DAILY #100 tab-cap 10/16/15 [Vitamin D3] acetaminophen [Acetaminophen Extra 1,000 mg PO Q6H PRN tab-cap 02/23/16 Strength] fluticasone propionate 2 inh NS BID PRN #1 spray 12/19/17 niacinamide 500 mg tablet 500 mg PO BID tab 10/22/19 ezetimibe 10 mg tablet 10 mg PO QHS #90 tab 12/01/20 amlodipine 5 mg tablet 5 mg PO DAILY #90 tab 12/11/20 atorvastatin 80 mg tablet 80 mg PO DAILY #90 tab 01/29/21 clindamycin HCl 300 mg capsule 600 mg PO PRN #2 tab-cap 01/29/21 latanoprost 1 drp OPHTHALMIC (EYE) HS 04/17/21 lisinopril 10 mg tablet 10 mg PO DAILY #90 tab 05/11/21 metoprolol succinate 100 mg 100 mg PO DAILY #90 tab-cap 05/17/21 tablet,extended release 24 hr lisinopril 20 1 tab PO DAILY 90 Days #90 tab-cap 07/17/21 mg-hydrochlorothiazide 25 mg tablet clopidogrel 75 mg tablet 75 mg PO DAILY #90 tab-cap 10/15/21 Current Visit Medications: Current Medications Generic Name Dose Route Start Last Admin Trade Name Freq PRN Reason Stop Dose Admin Acetaminophen 1,000 mg 10/30/21 06:00 Acetaminophen 500 Mg Tab PO 10/30/21 16:00 PREOP SHANON Gabapentin 600 mg 10/30/21 06:00 Gabapentin 300 Mg Cap PO 10/30/21 16:00 PREOP SHANON Ondansetron HCl 4 mg/ Sodium 52 mls @ 200 mls/hr 10/30/21 06:00 Chloride IVPB Q6H PRN PRN Ringer's Solution 1,000 mls @ 80 mls/hr 10/30/21 06:00 IV 11/28/21 23:59 INFUSION SHANON Clindamycin Phosphate/Dextrose 600 mg in 50 mls @ 100 mls/hr 10/30/21 06:00 Cleocin In D5w IVPB 10/30/21 16:00 PREOP [facility] IV Miscellaneous Supplies 1 each 10/30/21 06:00 Iv Access IV 11/28/21 23:59 DIRECTED SHANON Morphine Sulfate 2 mg 10/30/21 06:00 Morphine 4 Mg/Ml Syr IVP Q1H PRN PRN Sodium Chloride 0 ml 10/30/21 06:00 Normal Saline Flush 10 Ml Syr IV 11/28/21 23:59 PRN PRN Sodium Chloride 0 ml 10/30/21 06:00 Normal Saline 10 Ml Vial IJ 11/28/21 23:59 DIRECTED PRN Sterile Water 0 ml 10/30/21 06:00 Water,Injection,Sterile 10 Ml Vial IJ 11/28/21 23:59 DIRECTED PRN Tramadol HCl 50 mg 10/30/21 06:00 Tramadol 50 Mg Tab PO Q6H PRN PRN Pain PFSH Active Problems Active Problems: Problem Status Onset Code Right inguinal hernia K40.90 Nuclear sclerotic cataract of right eye H25.11 Cortical cataract of right eye H26.9 Obstructive sleep apnea of adult G47.33 S/P carotid endarterectomy 08/10/19 Z98.890 Diverticulosis of colon without diverticulitis 02/28/12 K57.30 Impaired fasting glucose 02/28/12 R73.01 Kidney stone 10/09/89 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 03/06/16 Z79.01 Pruritic rash 07/05/16 L28.2 Right carotid bruit 11/09/99 R09.89 Actinic keratosis L57.0 Carotid stenosis, bilateral 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 Seasonal allergic rhinitis 03/08/13 J30.2 S/P mitral valve repair 03/20/16 Z98.890 Peripheral vascular disease 10/10/99 I73.9 Overweight 11/09/84 E66.3 Other iron deficiency anemias 12/11/15 D50.8 Obstructive sleep apnea syndrome 05/21/05 G47.33 Need for prophylactic antibiotic 02/07/16 Z79.2 Hyperlipidemia 07/10/85 E78.5 Gastritis and duodenitis 03/28/17 K29.90 Essential hypertension 11/09/90 I10 Dermatitis 06/19/15 L30.9 Chronic ischemic heart disease, unspecified 05/10/07 I25.9 Anemia 10/16/15 D64.9 Signed copy of advance directive in patient notes 02/28/12 Adenoma of large intestine 04/19/13 D12.6 Medical History Medical History Anticoagulant long-term use (03/06/16) Cataract RIGHT EYE Chronic ischemic heart disease History of mitral valve repair HTN (hypertension) Iron deficiency anemia Obesity HARISH (obstructive sleep apnea) PVD (peripheral vascular disease) Surgical History Surgical History COLNOSCOPY W/IV (08/25/15) LARA ROBBINS Colonoscopy - IV Sedation (~2004) Colonoscopy - IV Sedation (04/19/13) EGD - MAC (03/28/17) H/O umbilical hernia repair (07/12/05) H/O: hemorrhoidectomy (~11/10/69) History of extraction of renal calculus (~09/1989) KESHAV Gomez Mitral Valve Repair (02/07/16) Dr Luna, [facility] [place]G X 1 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) S/P cataract extraction (~11/10/03) left Tobacco Smoking/Tobacco Use Status: Never Alcohol Alcohol Intake: current Alcohol intake frequency: a few times a month Alcohol type: wine Substance Use Substance use: Never Substance use type: does not use Vital Signs and Lab Results Vital Signs Most Recent Vital Signs in EMR: Most Recent Vital Signs Temp Pulse Resp BP Pulse Ox 36.5 C 52 L 18 144/61 H 99 10/30/21 06:15 10/30/21 06:15 10/30/21 06:15 10/30/21 06:15 10/30/21 06:15 Lab Results Blood Type / Crossmatch: No Data to Display Complete Blood Count: No Data to Display Complete Metabolic Panel: No Data to Display Liver Function Panel: No Data to Display Coagulation Panel: No Data to Display Cardiac Panel: No Data to Display Arterial Blood Gas: No Data to Display Venous Blood Gas: No Data to Display Pancreas Panel: No Data to Display Thyroid Panel: No Data to Display Infectious Disease: Coronavirus (COVID-19)(PCR) Negative (Negative) 10/29/21 09:50 10/29/21 Coronavirus 2019 Source Nasal/Nares 10/29/21 09:50 10/29/21 Blood Cultures: No Data to Display Toxicology Panel: No Data to Display Imaging and Studies Imaging and Studies Study information below may be from another EMR and interpreted by another provider. Please see original notes in EMR for more complete details. Echocardiogram Summary: Left Ventricle : The left ventricle is normal size. The left ventricular systolic function is normal. The left ventricular ejection fraction is within the normal range. There is normal left ventricular wall thickness. There is normal LV segmental wall motion. LVEF is 57%. Right Ventricle : The right ventricle is normal size. The right ventricular systolic function is normal. The RVSP is 29.9mmHg. Atria : The left atrium size is normal. The right atrium size is normal. Aortic Valve : The aortic valve is normal in structure. Aortic valve is trileaflet. Moderate aortic regurgitation. Mitral Valve : Mitral annuloplasty changes are present. Mild mitral regurgitation. No evidence of mitral valve stenosis. Great Vessels : The aortic root is normal in size. The ascending aorta is mildly dilated. IVC is normal in size and collapses >50% with inspiration. Please see remainder of study for further details. Anesthesia Assessment and Plan Anesthesia History Personal History: No History of Anesthesia Complications Family History: No Family History of Anesthesia Complications Exercise Tolerance Exercise Tolerance: Metabolic Equivalents>4 (walks daily, rowing machine x 30 mins per day) Pertinent Negatives Pertinent Negatives: No Symptoms of GERD, No Major Cardiovascular Symptoms or Complaints, No Major Pulmonary Symptoms or Complaints and No History of CVA/TIA Cardiac & Pulmonary Exam Cardiac Exam: Normal S1/S2 Heart Sounds Pulmonary Exam: Clear Bilateral Breath Sounds Implantable Cardiac Device Does patient have a Pacemaker or an ICD?: No Airway Exam Known Difficult Airway: No Mallampati Class: 2 Mouth Opening: Normal (> 3cm) Thyromental Distance: Greater than 3 cm Facial Hair: Full Brown Neck Range of Motion: Full ROM Neck Circumference: Normal Teeth Condition: Loose or Chipped Airway Comments: #11, #21 chipped ASA Classification ASA Score: ASA 3 Emergency Case?: No NPO Status NPO Status: NPO Clears >2 hours, Solids >8 hours Anesthesia Plan Resuscitation Status: Full Code Anesthesia Technique: General Anesthesia Airway Planned: LMA Pain Management: Surgeon and patient request nerve block Monitors Used: Standard Monitors Preoperative Comments:: 76 y/o ASA 3 in usual state of health. Hx HARISH on CPAP, HLD, chronic ischemic heart disease, carotid stenosis. S/p CABG, MVR, and CEA surgeries. Discussed GA and TAP block, pt agrees to proceed.
[2021-10-30] MEDS: Acetaminophen 500 MG TAB 1000 MG PO (06:52)
[2021-10-30] MEDS: Lactated Ringers 1,000 ML 80 ML IV (06:52)
[2021-10-30] MEDS: Gabapentin 300 MG CAP 600 MG PO (06:52)
--- NOTE | 2021-10-30 09:30 | RT.EKG_ITS ---
APPROVED REPORT Exam: Resting ECG Reason for Exam: POST OP. Patient Location: O HR:56 bpm ECG Measurements Heart Rate 56 AXIS PA 92 P 0 QRSd 111 QRS 84 QT 458 T -6 QTc 424 Conclusion Sinus bradycardia...rate< 60 Ventricular premature complex First-degree AV block Nondiagnostic ST-T abnormalities
[2021-10-30 09:33] LABS: Absolute Basophil Count 0.04 10^3/uL (0.0-0.2); Absolute Eosinophil Count 0.46 10^3/uL (0.0-0.7); Absolute Lymphocyte Count 0.97 10^3/uL (1.2-3.4); Absolute Neutrophil Count 2.89 10^3/uL (1.2-6.7); Basophils % 0.8; Eosinophils % 9.7; HCT 37.9 % (40.0-50.0); HGB 12.2 g/dL (13.5-17.5); Lymphocytes % 20.4; MCH 30.7 pg (27.0-33.0); MCHC 32.2 % (32.0-36.0); MCV 95.2 fL (80-95); MPV 9.9 fL (8.0-11.0); Monocytes % 8.4; Neutrophils % 60.7; Nucleated RBC 0 %; Platelet Count 114 10^3/uL (130-400); RBC 3.98 10^6/uL (4.36-5.78); RDW 13.2 % (11.8-14.1); RDW-SD 45.8 fL; WBC 4.76 10^3/uL (4.4-10.8)
[2021-10-30 09:45] LABS: INR 1.2 (0.9-1.1); Prothrombin Time 11.6 sec (9.3-11.0)
[2021-10-30 09:52] LABS: Troponin I < 50 ng/L (<or=60)
[2021-10-30 10:32] LABS: ALT 12 U/L (16-63); AST 27 U/L (15-37); Albumin 3.5 g/dL (3.4-5.0); Alkaline Phosphatase 84 U/L (46-116); Anion Gap 3.7 mmol/L (3-11); BUN 17 mg/dL (7-18); Bilirubin, Total 0.8 mg/dL (0.2-1.0); CO2 31.3 mmol/L (21.0-32.0); CREATININE 1.1 mg/dL (0.70-1.30); Chloride 105 mmol/L (98-107); Glucose 103 mg/dL (74-106); Magnesium 2.1 mg/dL (1.8-2.4); Potassium 3.9 mmol/L (3.5-5.1); Sodium 140 mmol/L (136-145); TSH (W/Ref FT4) 1.86 uIU/mL (0.36-3.74); Total Protein 6.2 g/dL (6.4-8.2)
[2021-10-30] MEDS: Omnipaque 350 MG/ML 100 ML BTL IJ (11:20)
--- NOTE | 2021-10-30 11:55 | W.ANESPOSTOP ---
Postoperative Evaluation Date, Time and Location Date Performed: 10/30/21 Time Performed: 11:56 Patient Location: Day Surgery Unit Vital Signs Most Recent Imported Vital Signs: Most Recent Vital Signs Temp Pulse Resp BP Pulse Ox 36 C L 56 L 16 146/58 H 95 10/30/21 11:30 10/30/21 11:30 10/30/21 11:30 10/30/21 11:30 10/30/21 11:30 Pain Score Most Recent Pain Score: Most Recent Pain Score Pain Level 0 10/30/21 11:30 Assessment Mental Status: Awake (Alert & Oriented to Patient Baseline) Airway and Respiratory Function: Patent airway with normal (patient baseline) respiratory exam Cardiovascular Function: Hemodynamically Stable Hydration Status: Adequately Hydrated Nausea & Vomiting: No Nausea or Vomiting Pain: Pt. Denies Any Pain Peripheral Nerve Block: Patient did not receive a nerve block
--- NOTE | 2021-11-08 20:42 | W.PM.PROGNOT ---
Date of Service Date of service: 10/30/21 Time of Service: 08:00 Assessment and Plan Assessment and plan (1) Difficult airway for intubation: Status: Acute Assessment and plan: At the time of induction, patient did experience some bradycardia. Patient also had a very difficult intubation. We were not able to get a ET tube past his cords. We were able to ventilate him through an LMA. Anesthesia did do a bronchoscopy and we were able to run the bronchoscope through the ports. There were no masses. He did have some mild swelling and edema along the arytenoid cartilage cartilages. He did receive steroids intraoperatively. We were unable to successfully place an ET tube, for what ever reason. And I refer you to anesthesia department notes. Because of the difficult airway situation and the bradycardia, the procedure was abandoned. Patient was successfully woken up. Again he did receive steroids. He did not have any problems with postop stridor/breathing. He was taken to PACU. He had some additional bradycardia down into the 40s in PACU. He is on metoprolol and did take that medication today. He did not experience any chest pain or shortness of breath with these episodes. His blood pressure appeared stable. He has no stridor. He has no noticeable neck masses or bulges. He does not feel short of breath and his O2 sats are normal. He has had carotid stenting in the past. CT scan/angio of the neck is pending. EKG and labs were ordered and there these are normal-see Connolly for results (2) Right thyroid nodule: Status: Acute (3) Right inguinal hernia: Status: Acute (4) S/P carotid endarterectomy: Status: Acute Objective Last Vital Signs Temp 36.6 C 10/30/21 13:30 Pulse 62 10/30/21 13:30 Resp 16 10/30/21 13:30 BP 151/53 H 10/30/21 13:30 Pulse Ox 97 10/30/21 13:30
--- NOTE | 2021-11-08 20:43 | PGE_ITS ---
Date of Service Date of service: 10/30/21 Time of Service: 13:00 Assessment and Plan Assessment and plan (1) Difficult airway for intubation: Status: Acute Assessment and plan: -At the time of patient's discharge to home he is on room air. He is not having any chest pain or shortness of breath. He has no sore throat. He has no stridor. He has no tracheal deviation. We did discuss findings during the attempted intubation. Results of the CT were pretty unremarkable except for a right thyroid nodule. An ultrasound and lab work was ordered to follow-up with this. He has no palpable neck masses he has no neck pain there is no hematomas there is no bruits Lungs are clear to auscultation Heart is normal sinus Abdomen is soft and nontender He should not do any strenuous activity for the next 24 hours. Gargle with salt water if he has a sore throat. If he has any chest pain or shortness of breath, if he has any weakness/dizziness or feeling like he is going to pass out he should return to the emergency department. An appointment was made for him to follow-up with cardiology. Dr. Baker is his pharmacy service associate. I did send her a [employer] message and she did review the EKG and felt there was no need for admission. Especially in light of his normal troponins and continued observation for the next 4 hours with no symptomatic bradycardia or hypotension. Patient has had bradycardia with anesthesia in the past, but that was with a cardiac surgery. At this point patient is exhibited no bradycardia over the past 3 hours. He has tolerated a light meal. He has been up and walking around. Labs and EKG are normal. And he will follow-up with cardiology in a week. I will see him back in 3 weeks time in my office to go over further testing and discuss care of the hernia in the future 2 hours was spent with the patient today. (2) Right thyroid nodule: Status: Acute (3) Right inguinal hernia: Status: Acute (4) Obstructive sleep apnea of adult: Status: Chronic (5) S/P carotid endarterectomy: Status: Acute Objective Last Vital Signs Temp 36.6 C 10/30/21 13:30 Pulse 62 10/30/21 13:30 Resp 16 10/30/21 13:30 BP 151/53 H 10/30/21 13:30 Pulse Ox 97 10/30/21 13:30
== END 2021-10-30 14:11 | disposition home or self-care (01) ==
LOC: SUR 06:10
PROVIDERS: PCP Family Medicine; Visit Provider Surgery
PROC: (CPT 49505; principal; 2021-10-30 07:30)
DX: K40.90 Unilateral inguinal hernia, without obstruction or gangrene, not specified as recurrent (principal); T88.4XXA Failed or difficult intubation, initial encounter; R00.1 Bradycardia, unspecified; G47.33 Obstructive sleep apnea (adult) (pediatric); R73.01 Impaired fasting glucose; Z79.01 Long term (current) use of anticoagulants; I25.89 Other forms of chronic ischemic heart disease; I10 Essential (primary) hypertension; Z53.09 Procedure and treatment not carried out because of other contraindication; E78.5 Hyperlipidemia, unspecified; Z95.2 Presence of prosthetic heart valve
CPT/HCPCS: 49505; 36415; 70491; 80053; 83735; 84443; 84484; 85025; 85610; 93005; 93010; J1100; J1885; J2405; J3490

== ENCOUNTER → 2021-11-06 09:34 | Outpatient (BNVA) | payer MEDICARE, BC, SELFPAY | PROVIDERS: PCP Family Medicine; Visit Provider Internal Medicine Cardiovascular Disease | DX: I65.23 Occlusion and stenosis of bilateral carotid arteries (principal); I10 Essential (primary) hypertension; Z95.1 Presence of aortocoronary bypass graft; Z98.890 Other specified postprocedural states | CPT/HCPCS: 99214; 99213 ==

== ENCOUNTER 2021-11-08 13:00 | Outpatient (RCR) | payer SELFPAY ==
[2021-10-10 00:15] VITALS: BP 168/69; PULSE 61
[2021-10-11 13:08] VITALS: BP 164/73; PULSE 52
[2021-10-23 13:06] VITALS: BP 169/64; PULSE 58
[2021-10-25 13:07] VITALS: BP 139/60; PULSE 62
[2021-11-01 13:04] VITALS: BP 178/74; PULSE 51
[2021-11-01 13:07] VITALS: BP 164/64
[2021-11-06 13:17] VITALS: BP 187/68; PULSE 54
[2021-11-08 13:05] VITALS: BP 164/67; PULSE 59
== END 2021-11-09 23:59 | disposition home or self-care (01) ==
LOC: CR 13:00
PROVIDERS: PCP Family Medicine; Visit Provider Family Medicine
DX: Z51.89 Encounter for other specified aftercare (principal); R69 Illness, unspecified

== ENCOUNTER 2021-11-12 15:10 | Outpatient (RCR) | payer SELFPAY ==
[2021-11-10 00:16] VITALS: BP 164/67; PULSE 59
== END 2021-12-10 23:59 | disposition home or self-care (01) ==
LOC: CR 15:10
PROVIDERS: PCP Family Medicine; Visit Provider Family Medicine
DX: R69 Illness, unspecified (principal)

== ENCOUNTER 2021-11-28 01:03 | Outpatient (CLI) | payer MEDICARE, BC, SELFPAY ==
--- NOTE | 2021-11-28 07:15 | DI.US_ITS ---
Exam(s) US THYROID EXAM: US THYROID CLINICAL HISTORY: right thyroid nodule noted on CT,e04.1 TECHNIQUE: Ultrasound performed using standard protocol. COMPARISON: US US ECHOCARDIOGRAM from 06/04/2021 FINDINGS: Thyroid ultrasound was performed according to the usual protocol. Right thyroid lobe measures 46 x 1 9 x 20 millimeters and left thyroid lobe measures 40 x 13 x 15 millimeters. Thyroid parenchyma is he terogeneous throughout. There is a 27 millimeter in diameter mixed echogenicity predominantly solid isoechoic mass of the rig ht thyroid lobe. This is a TR 2 lesion by the TI-RADS classification. A 7 millimeter in diameter TR 3 classified lesion is also noted. No other significant findings. IMPRESSION: Heterogeneous thyroid gland with multiple small low risk nodules. No further follow-up recommended. DATA REPOSITORY:
== END 2021-11-28 01:23 ==
PROVIDERS: PCP Family Medicine; Visit Provider Surgery
DX: E04.1 Nontoxic single thyroid nodule (principal)
CPT/HCPCS: 76536

== ENCOUNTER → 2021-11-29 08:57 | Outpatient (BNVA) | payer MEDICARE, BC, SELFPAY | PROVIDERS: PCP Family Medicine; Referring Provider Family Medicine; Visit Provider Surgery | DX: Z48.815 Encounter for surgical aftercare following surgery on the digestive system (principal) | CPT/HCPCS: 99213 ==

== ENCOUNTER 2021-12-17 03:10 | Outpatient (CLI) | payer MEDICARE, BC, SELFPAY ==
[2021-12-17 10:05] LABS: Source Nasal/Nares
[2021-12-17 12:26] LABS: COVID-19 PCR Negative (Negative)
== END 2021-12-17 03:11 | disposition home or self-care (01) ==
LOC: LBO 03:10
PROVIDERS: PCP Family Medicine; Visit Provider Surgery
DX: Z20.822 Contact with and (suspected) exposure to COVID-19 (principal); Z01.818 Encounter for other preprocedural examination
CPT/HCPCS: 87635

== ENCOUNTER 2021-12-18 06:03 | Day surgery (SDC) | payer MEDICARE, BC, SELFPAY ==
[2021-12-18] VITALS (11 sets, daily range): BP systolic 154–178; BP diastolic 46–73; PULSE 47–59; RESP 12–17; TEMP 36–36.2; O2SAT 98–100; BMI 28.8
[2021-12-18] MEDS: Gabapentin 300 MG CAP 600 MG PO (06:23)
[2021-12-18] MEDS: Acetaminophen 500 MG TAB 1000 MG PO (06:23)
[2021-12-18] MEDS: Tamsulosin 0.4 MG CAPCR PO (06:24)
[2021-12-18] MEDS: Lactated Ringers 1,000 ML 80 ML IV (06:24)
--- NOTE | 2021-12-18 07:05 | W.ANESPRE ---
General Info Date of Service Date Performed: 12/18/21 Height: 5 ft 9 in Weight: 88.6 kg Body Mass Index (BMI): 28.8 Surgical Procedure: Operation Date: 12/18/21 07:40 Proposed Procedures Side Surgeon p Herniorrhaphy Inguinal w/Mesh Right Lamar Jacome DO Meds Allergies and Home Medications Allergies Allergy/AdvReac Type Severity Reaction Status Date / Time Penicillins Allergy Severe Swelling/Ed Verified 12/18/21 05:51 robyn aspirin AdvReac Intermediate iron def Verified 12/18/21 05:51 pollen Allergy Mild unknown Uncoded 12/18/21 05:51 Home Medication Medication Instructions Recorded cholecalciferol (vitamin D3) 1,000 unit PO DAILY #100 tab-cap 10/16/15 [Vitamin D3] acetaminophen [Acetaminophen Extra 1,000 mg PO Q6H PRN tab-cap 02/23/16 Strength] fluticasone propionate 2 inh NS BID PRN #1 spray 12/19/17 niacinamide 500 mg tablet 500 mg PO BID tab 10/22/19 ezetimibe 10 mg tablet 10 mg PO QHS #90 tab 12/01/20 atorvastatin 80 mg tablet 80 mg PO DAILY #90 tab 01/29/21 clindamycin HCl 300 mg capsule 600 mg PO PRN #2 tab-cap 01/29/21 latanoprost 1 drp OPHTHALMIC (EYE) HS 04/17/21 lisinopril 10 mg tablet 10 mg PO DAILY #90 tab 05/11/21 metoprolol succinate 100 mg 100 mg PO DAILY #90 tab-cap 05/17/21 tablet,extended release 24 hr lisinopril 20 1 tab PO DAILY 90 Days #90 tab-cap 07/17/21 mg-hydrochlorothiazide 25 mg tablet clopidogrel 75 mg tablet 75 mg PO DAILY #90 tab-cap 10/15/21 amlodipine 5 mg tablet 5 mg PO DAILY #90 tab 12/17/21 Current Visit Medications: Current Medications Generic Name Dose Route Start Last Admin Trade Name Freq PRN Reason Stop Dose Admin Acetaminophen 1,000 mg 12/18/21 06:00 12/18/21 06:23 Acetaminophen 500 Mg Tab PO 01/16/22 23:59 1,000 mg PREOP SHANON Administration Gabapentin 600 mg 12/18/21 06:00 12/18/21 06:23 Gabapentin 300 Mg Cap PO 01/16/22 23:59 600 mg PREOP SHANON Administration Ringer's Solution 1,000 mls @ 80 mls/hr 12/18/21 06:00 12/18/21 06:24 IV 01/16/22 23:59 80 mls/hr INFUSION SHANON Administration Clindamycin Phosphate/Dextrose 600 mg in 50 mls @ 100 mls/hr 12/18/21 06:00 Cleocin In D5w IVPB 12/18/21 23:59 PREOP SHANON IV Miscellaneous Supplies 1 each 12/18/21 06:00 Iv Access IV 01/16/22 23:59 DIRECTED SHANON Sodium Chloride 0 ml 12/18/21 06:00 Normal Saline Flush 10 Ml Syr IV 01/16/22 23:59 PRN PRN Sodium Chloride 0 ml 12/18/21 06:00 Normal Saline 10 Ml Vial IJ 01/16/22 23:59 DIRECTED PRN Sterile Water 0 ml 12/18/21 06:00 Water,Injection,Sterile 10 Ml Vial IJ 01/16/22 23:59 DIRECTED PRN Tamsulosin HCl 0.4 mg 12/18/21 06:00 12/18/21 06:24 Tamsulosin 0.4 Mg Capcr PO 12/18/21 23:59 0.4 mg PREOP SHANON Administration PFSH Active Problems Active Problems: Problem Status Onset Code Difficult airway for intubation T88.4XXA Right thyroid nodule E04.1 Right inguinal hernia K40.90 Nuclear sclerotic cataract of right eye H25.11 Cortical cataract of right eye H26.9 Obstructive sleep apnea of adult G47.33 S/P carotid endarterectomy 08/10/19 Z98.890 Diverticulosis of colon without diverticulitis 02/28/12 K57.30 Impaired fasting glucose 02/28/12 R73.01 Kidney stone 10/09/89 N20.0 longterm current use of anticoagulant therapy 03/06/16 Z79.01 Pruritic rash 07/05/16 L28.2 Right carotid bruit 11/09/99 R09.89 Actinic keratosis L57.0 Carotid stenosis, bilateral 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 Seasonal allergic rhinitis 03/08/13 J30.2 S/P mitral valve repair 03/20/16 Z98.890 Peripheral vascular disease 10/10/99 I73.9 Overweight 12/31/84 E66.3 Other iron deficiency anemias 12/11/15 D50.8 Obstructive sleep apnea syndrome 05/21/05 G47.33 Need for prophylactic antibiotic 02/07/16 Z79.2 Hyperlipidemia 07/10/85 E78.5 Gastritis and duodenitis 03/28/17 K29.90 Essential hypertension 11/09/90 I10 Dermatitis 06/19/15 L30.9 Chronic ischemic heart disease, unspecified 05/10/07 I25.9 Anemia 10/16/15 D64.9 Signed copy of advance directive in patient notes 02/28/12 Adenoma of large intestine 04/19/13 D12.6 Medical History Medical History Anticoagulant long-term use (03/06/16) Cataract RIGHT EYE Chronic ischemic heart disease History of mitral valve repair HTN (hypertension) Iron deficiency anemia Obesity HARISH (obstructive sleep apnea) PVD (peripheral vascular disease) Medical History Comments:: Difficult intubation see anesthesia note Surgical History Surgical History COLNOSCOPY W/IV (08/25/15) LARA ROBBINS Colonoscopy - IV Sedation (~2004) Colonoscopy - IV Sedation (04/19/13) EGD - MAC (03/28/17) H/O right inguinal hernia repair (~10/30/21) H/O umbilical hernia repair (07/12/05) H/O: hemorrhoidectomy (~11/10/69) History of extraction of renal calculus (~09/1989) KESHAV Gomez Mitral Valve Repair (02/07/16) Dr Luna, [facility] [place] with CABG X 1 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) S/P cataract extraction (~11/10/03) left Tobacco Smoking/Tobacco Use Status: Never Alcohol Alcohol Intake: current Alcohol intake frequency: a few times a month Alcohol type: wine Substance Use Substance use: Never Substance use type: does not use Vital Signs and Lab Results Vital Signs Most Recent Vital Signs in EMR: Most Recent Vital Signs Temp Pulse Resp BP Pulse Ox 36.1 C L 59 L 16 160/60 H 98 12/18/21 06:00 12/18/21 06:00 12/18/21 06:00 12/18/21 06:00 12/18/21 06:00 Lab Results Blood Type / Crossmatch: No Data to Display Complete Blood Count: No Data to Display Complete Metabolic Panel: No Data to Display Liver Function Panel: No Data to Display Coagulation Panel: No Data to Display Cardiac Panel: No Data to Display Arterial Blood Gas: No Data to Display Venous Blood Gas: No Data to Display Pancreas Panel: No Data to Display Thyroid Panel: No Data to Display Infectious Disease: Coronavirus (COVID-19)(PCR) Negative (Negative) 12/17/21 08:47 12/17/21 Coronavirus 2019 Source Nasal/Nares 12/17/21 08:47 12/17/21 Blood Cultures: No Data to Display Toxicology Panel: No Data to Display Imaging and Studies Imaging and Studies Study information below may be from another EMR and interpreted by another provider. Please see original notes in EMR for more complete details. EKG Summary: Conclusion Sinus bradycardia...rate< 60 Ventricular premature complex First-degree AV block Nondiagnostic ST-T abnormalities Echocardiogram Summary: Left Ventricle : The left ventricle is normal size. The left ventricular systolic function is normal. The left ventricular ejection fraction is within the normal range. There is normal left ventricular wall thickness. There is normal LV segmental wall motion. LVEF is 57%. Right Ventricle : The right ventricle is normal size. The right ventricular systolic function is normal. The RVSP is 29.9mmHg. Atria : The left atrium size is normal. The right atrium size is normal. Aortic Valve : The aortic valve is normal in structure. Aortic valve is trileaflet. Moderate aortic regurgitation. Mitral Valve : Mitral annuloplasty changes are present. Mild mitral regurgitation. No evidence of mitral valve stenosis. Great Vessels : The aortic root is normal in size. The ascending aorta is mildly dilated. IVC is normal in size and collapses >50% with inspiration. Please see remainder of study for further details. Carotid Artery Summary:: CONCLUSION: 1. Near occlusion right ICA. 2. Greater than 70% luminal diameter stenosis left ICA. Anesthesia Assessment and Plan Anesthesia History Personal History: Other Family History: No Family History of Anesthesia Complications Exercise Tolerance Exercise Tolerance: Metabolic Equivalents>4 Pertinent Negatives Pertinent Negatives: No Symptoms of GERD, No Major Cardiovascular Symptoms or Complaints, No Major Pulmonary Symptoms or Complaints and No History of CVA/TIA Cardiac & Pulmonary Exam Cardiac Exam: Normal S1/S2 Heart Sounds Pulmonary Exam: Clear Bilateral Breath Sounds Implantable Cardiac Device Does patient have a Pacemaker or an ICD?: No Airway Exam Known Difficult Airway: No Mallampati Class: 2 Mouth Opening: Normal (> 3cm) Thyromental Distance: Greater than 3 cm Neck Range of Motion: Full ROM Neck Circumference: Normal Teeth Condition: Generalized Poor Dentition and Loose or Chipped Airway Comments: #11, #21 chipped ASA Classification ASA Score: ASA 3 Emergency Case?: No NPO Status NPO Status: NPO Clears >2 hours, Solids >8 hours Anesthesia Plan Resuscitation Status: Full Code Anesthesia Technique: Spinal Anesthesia Airway Planned: Natural Airway Pain Management: Surgeon and patient request nerve block Monitors Used: Standard Monitors
[2021-12-18] MEDS: CLINDAMYCIN 600 MG/50 ML BAG 100 MG IVPB (07:55)
--- NOTE | 2021-12-18 08:17 | W.ANESNERVE ---
Nerve Block Single Injection Procedure Date and Time Date Performed: 12/18/21 Procedure Start: 07:56 Location Where Procedure Performed Procedure Location: Operating Room Procedure Stop: 08:02 Reason Performed: Postoperative Analgesia Requesting Provider: Lamar Jacome Timeout Performed Timeout Performed: Yes Monitoring Used ECG, Blood Pressure and SpO2 Sterility Sterility: Hand Hygiene, Surgical Cap, Surgical Mask, Sterile Gloves and Chlorhexidine Sedation Given During Procedure Sedation Given (Indicate Dose Given): No Sedation given Patient Mental Status Patient Mental Status: Sedated or Ventilated without meaningful communication Nerve Block 1st Nerve Block: Laterality: Right Block Type: TAP Unilateral Needle / Catheter Used: 100mm SonoPlex II Local Anesthetic Bolus (Indicate Dose Given): None (Patient under spinal), Bupivacaine 0.5% Dose:: 20 ml and Exparel Dose:: 10 ml Additives (Indicate Dose Given): Normal Saline Ultrasound: Sterile probe cover and gel used Ultrasound Image Saved?: Yes Nerve Stimulator: Not Used Paresthesia: None Procedure Tolerated: No Complications and Patient tolerated well Procedure Outcome: Successful Performed By: Ney Evans
--- NOTE | 2021-12-18 08:25 | HERN_PTH ---
PATIENT: Sung Jones LOC: [facility] U#:[id number] AGE/SX: 76/M ROOM: RE12/18/[address]: Lamar Jacome : 1945 BED: DIS: 12/18/2021 SPEC #: [id number] RECD: 12/18/21 12:52 STATUS: YOUNG REQ #: [id number] BARRY: 12/18/21 08:[address]: Lamar Jacome DEPT: Surgical Specimen RECD BY: Mary Carmen Barajas ENTERED: 12/18/21 12:53 SP TYPE: Hernia Sac OTHR DR: Johnathon Palm DO Tissues: 1 - HERNIA SAC, INGUINAL Procedures: GROSS AND MICRO LEVEL 4 IMMUNOPEROXIDASE STAIN Comments: [id number]
[2021-12-18] MEDS: Bupivacaine 0.25% Pres-Free 30 ML VIAL (09:20)
[2021-12-18] MEDS: Bupivacaine LIPOSOME/PF 133 MG/10 ML VIAL IJ (09:21)
--- NOTE | 2021-12-18 09:45 | RT.EKG_ITS ---
APPROVED REPORT Exam: Resting ECG Reason for Exam: 3rd degree block in OR on propafol Patient Location: O HR:47 bpm ECG Measurements Heart Rate 47 AXIS AL 288 P 79 QRSd 112 QRS 83 QT 449 T 0 QTc 396 Conclusion Sinus bradycardia...rate< 60 Prolonged AL interval...AL >230, V-rate 30- 49
--- NOTE | 2021-12-18 10:05 | W.PM.OP ---
Date of service: 12/18/21 Time of Service: 10:05 Operative Note Operative Note DATE OF PROCEDURE: 12/18/21 PRE-OP DIAGNOSIS: symptomatic right inguinal hernia POST-OP DIAGNOSIS: same (indirect) PROCEDURE: open hernia reapair w/ mesh SURGEON: Lamar Kessler BRIM STITCHER: Katherine Stokes ANESTHESIA TYPE: Local By Surgeon, Spinal and Primary Nerve Block Refer to Anesthesia Record ESTIMATED BLOOD LOSS: 5 PATHOLOGY: other COMPLICATIONS: Other Patient was transported to: PACU Procedure Description: INDICATIONS: The pt is here today for surgery regarding symptomatic --- inguinal hernia that has failed outpatient conservative medical management and he is here today for repair. Informed consent was obtained, explaining risks and benefits of the procedure including but not limited to bleeding, infection, pneumonia, blood clots, chronic pain, chronic numbness, damage to testicle resulting in removal, recurrence of hernia, reaction to Mesh necessitating removal, and other unforetold complications, and complications of anesthesia-which were addressed by the RECREATION THERAPY AIDES TEACHER. The patient is marked in preOp prior to the procedure DESCRIPTION OF PROCEDURE: The pt is then brought to the operative room suite. Anesthesia was administered per the Department of Anesthesia. A nerve block was performed by anesthesia under US guidance. The patient was prepped and draped in the usual sterile fashion using ChloraPrep scrub solution. Pause for the cause was done. He did receive preop IV antibiotics, and 30 mL of .25% Marcaine w/ epinephrine was used for local anesthetization. A #12 blade was used to make an incision over the external ring. Electrocautery used to provide hemostasis and dissect down to the fascia. The fascia was pretty much obliterated and there was nothing to open. The cord is elevated. The nerve was not identified. There no is a cord lipomas. Electro-cautery is used to provide hemostasis. A Geovanny drain was placed around the cord to assist in mobilization. The cord was explored. There was is a hernia sac on the cord. There is no direct hernia pushing through the floor. The hernia sac is dissected off the cord using a combination of blunt dissection and electrocautery. Electrocautery is used to provide hemostasis. There are no contents within the hernia sac. The hernia sac is than inverted and returned to the abdominal cavity. A large size plug is than inserted into the defect through the internal ring, and over sewn to tighten up the ring with 2-0 vicryl. Please see RN notes from Lot number of the Bard mesh patch/plug. The cord structures are still able to freely move through the ring itself. The patch was then placed onto the floor, and using 2-0 Vicryl, sewn into the pubic tubercle and the shelving portions of the inguinal ligament, in the standard Lichenstein fashion. The tails of the mesh are brought around the cord, sewn together w/ 2-0 Vicryl, and tucked under the external oblique. The wound was copiously irrigated. There was no bleeding noted. The drain was removed. All structures are returned to normal anatomical position. The nerve is not sewn into the mesh, nor caught up in any sutures. The external oblique is re-approximated using 2-0 vicryl in a running fashion. Deep tissue was approximated with 3-0 Vicryl in a running fashion, and skin was approximated with 4-0 Monocryl in a running subcuticular fashion. Skin glue and sterile dressings are applied. The patient tolerated the procedure without complications to recovery in stable condition. LAMAR KESSLER, DO
[2021-12-18 10:35] LABS: Troponin I < 50 ng/L (<or=60)
--- NOTE | 2021-12-18 12:29 | W.ANESPOSTOP ---
Postoperative Evaluation Date, Time and Location Date Performed: 12/18/21 Time Performed: 11:32 Patient Location: Day Surgery Unit Vital Signs Most Recent Imported Vital Signs: Most Recent Vital Signs Temp Pulse Resp BP Pulse Ox 36 C L 47 L 16 158/58 H 98 12/18/21 11:35 12/18/21 11:35 12/18/21 11:35 12/18/21 11:35 12/18/21 11:35 Pain Score Most Recent Pain Score: Most Recent Pain Score Pain Level 1 12/18/21 11:35 Assessment Mental Status: Awake (Alert & Oriented to Patient Baseline) Airway and Respiratory Function: Patent airway with normal (patient baseline) respiratory exam Cardiovascular Function: Hemodynamically Stable Hydration Status: Adequately Hydrated Nausea & Vomiting: No Nausea or Vomiting Pain: Pt. Denies Any Pain Peripheral Nerve Block: Regional nerve block not resolved at time of post operative discharge (TAP) Postoperative Comments:: 12-lead and troponin ordered by Dr. Jacome. It is my concern the patient could be having bradycardic episodes at home that we have observed due to a propofol trigger. We currently have a request out to cardiology for their input. I am wondering if long-term EKG monitoring at home would be appropriate. I have discussed this both with Cards and with Dr. Jacome. The patient has been extremely stable since the incident early in his operation, which appeared to be a 3rd degree HB. He is now sinus and bradycardic in the 40s. BP maintained. He is appropriate for anesthetic discharge. I would like him to follow up as described above and as per Cards recommendation.
--- NOTE | 2021-12-18 13:36 | W.PM.DSUDISC ---
Discharge Plan Disposition Patient Disposition: HOME Condition: Good Discharge Details Reason For Visit: right hernia repair Attending Provider: Lamar Jacome Primary Care Provider: Johnathon Palm Home Meds and New Rx's Prescriptions: New tramadol [Ultram] 50 mg tablet 50 mg PO Q6H PRN (Reason: pain (scale score 7-10)) Qty: 10 RF: 0 Continued atorvastatin 80 mg tablet 80 mg PO DAILY Qty: 90 RF: 3 clindamycin HCl 300 mg capsule 600 mg PO PRN Qty: 2 RF: 12 ezetimibe [Zetia] 10 mg tablet 10 mg PO QHS Qty: 90 RF: 6 clopidogrel 75 mg tablet 75 mg PO DAILY Qty: 90 RF: 3 cholecalciferol (vitamin D3) [Vitamin D3] 1,000 UNIT capsule 1,000 unit PO DAILY Qty: 100 RF: 6 acetaminophen [Acetaminophen Extra Strength] 500 MG tablet 1,000 mg PO Q6H PRN RF: 0 fluticasone propionate 16 GM spray,suspension 2 inh NS BID PRNQty: 1 RF: 11 niacinamide [Niacin (niacinamide)] 500 mg tablet 500 mg PO BID RF: 0 lisinopril 10 mg tablet 10 mg PO DAILY Qty: 90 RF: 3 metoprolol succinate 100 mg tablet extended release 24 hr 100 mg PO DAILY Qty: 90 RF: 3 lisinopril-hydrochlorothiazide 20-25 mg tablet 1 tab PO DAILY 90 Days Qty: 90 RF: 3 amlodipine 5 mg tablet 5 mg PO DAILY Qty: 90 RF: 3 latanoprost 0.005 % drops 1 drp ophthalmic (eye) HS RF: 0 Discharge Instructions Additional Instructions: Dr. Jacome HERNIA REPAIR ? POSTOPERATIVE INSTRUCTIONS Patients who have this type of surgery can usually be expected to return to work within two weeks and have minimal amounts of discomfort. ? ACTIVITY: The day of surgery should be spent resting. However, you can be up for short periods of time, I.E., going to the bathroom or kitchen. Avoid lifting or straining. On the day following surgery, you can be up and about as desired. ? LIFTING: Restrict your lifting to no more than five (5) pounds for the first week following surgery. For the second week after surgery, don?t lift more than ten pounds. We will decide when you are done with restrictions and when you can return to work, at your follow-up appointment. No sexual activity for two weeks. ? DIET: There are no dietary restrictions following surgery. However, you may want to start with small amounts of liquids to avoid nausea the day of surgery. ? INCISION CARE: You will notice purple skin glue closing the incision. Do not peel this off- it will wear off on its own. After 24 hours you may shower. The dressing may be replaced for comfort, but is not necessary. An ice bag may be applied to the incision for 72 hours following surgery. ? SIGNS OF INFECTION: It is not unusual to have some black and blue discoloration of the skin around the incision, but also scrotum and penis. It will slowly disappear. If you have any increased redness, drainage, fever (above 100 degrees), please contact your doctor for an examination. ? DISCOMFORT: You may expect to have some mild discomfort at the incision sight. If severe pain develops you should contact your doctor for further instructions. ? URINATION: Patients who have surgery occasionally have problems urinating. If you experience problems and are not able to urinate within 6 hours following your surgery, please call your doctor immediately or go to your nearest Emergency Room for evaluation. ? DRIVING: NO driving for three (3) days after surgery, or if you are still taking narcotic pain medication. ? MEDICATIONS: Alternate Tylenol 1000mg by mouth every 8 hours and Ibuprofen 600mg every 6 hours. Make sure you take ibuprofen with food and not on an empty stomach. Take the Tylenol and ibuprofen continuously for the first 72hrs- not just when you have pain. Use the tramadol for breakthrough pain. Use ICE! Twenty minutes on, and then off, continuously for the first 72hours. If you are taking narcotic pain medication, follow the instructions on the label and do not drive. Pain medications can make you very constipated. Make sure you are moving your bowels daily. If not, take Miralax, milk of magnesia or magnesium citrate. Anesthesia makes you very constipated. Take a dose of milk of magnesia the morning after surgery. Hold aspirin while you are taking ibuprofen ? REPORT: Unusual swelling, severe pain, unresolved nausea, signs of infection, or difficulty in urination to your surgeon. Follow up in clinic with Dr. Jacome in 2 weeks. [phone] Activity:: see above Remove Dressings/Wound Care:: 24 hours Shower/Bathe:: 24 hours Diet:: Low Sodium Discharge Orders Discharge Orders: Discharge Order (Routine); Ordered 12/18/21 Ordered By: Lamar Jacome DS: Diagnosis Discharge Diagnosis (1) Right inguinal hernia: Status: Acute
--- NOTE | 2021-12-18 15:01 | W.PM.PROGNOT ---
Date of Service Date of service: 12/18/21 Time of Service: 15:01 Subjective Subjective Interval history since last seen: The patient is doing well post-op. Their pain is well controlled. They are having no nausea or vomiting. The pt is not having any chest pain or SOB, productive cough; no calf pain or swelling. The pt is making good urine. The pt pain is adequately controlled. The case was discussed with nursing and patient?s progress reviewed. He still has not urinated after 6hrs. He does have a slight urge, but no pain or discomfort. HEENT: no jaundice. no eye pain/drainage/redness/swelling. Mild sore throat Cardio- NSR no chest pain, BP stable. Pulm: no sob or productive cough. no hemoptysis Incision- clean/dry. Dressing intact no excessive bleeding or drainage Patient did have bradycardia and what appeared to be third-degree AV block with propofol administration. Propofol was turned off and his heart rate and the block subsided. We were able to catch this on rhythm strip. He had a EKG and troponin in recovery room. The EKG showed some sinus bradycardia. Troponin was less than 50. I did review the rhythm strips with Dr. Baker. She does not feel it is third-degree. She feels the bradycardia is due to hypertonicity of the vagal system. She did not recommend any additional testing. At the time of discharge patient is having no chest pain or shortness of breath. He is up and moving with minimal dizziness or pain. He still has not urinated. I discussed with the patient and/or there family about the findings in surgery and the pt's progress. We discussed the importance of walking and pulmonary toilet to avoid blood clots and pneumonia. We shall continue the current plan for pain management as it is at an appropriate level, and working well for the pt. Patient will follow up with his PCP next week regarding the bradycardia. He has not urinated by 8 PM he needs to come to the ER. Objective Last Vital Signs Temp 36.0 C L 12/18/21 12:50 Pulse 56 L 12/18/21 12:50 Resp 16 12/18/21 12:50 BP 155/73 H 12/18/21 12:50 Pulse Ox 98 12/18/21 12:50 Laboratory Results - last 24 hr 12/18/21 10:12 Troponin I < 50
== END 2021-12-18 15:58 | disposition home or self-care (01) ==
PROVIDERS: PCP Family Medicine; Visit Provider Surgery
PROC: (CPT 49505; principal; 2021-12-18 07:30)
DX: K40.90 Unilateral inguinal hernia, without obstruction or gangrene, not specified as recurrent (principal); G47.33 Obstructive sleep apnea (adult) (pediatric); I73.9 Peripheral vascular disease, unspecified; R73.01 Impaired fasting glucose; E78.5 Hyperlipidemia, unspecified; I10 Essential (primary) hypertension
CPT/HCPCS: 49505; 36415; 76942; 88300; 88305; 84484; 88361; 93005; 93010; C1781; J1100; J2405; J2704

== ENCOUNTER 2021-12-28 01:01 | Outpatient (CLI) | payer MEDICARE, BC, SELFPAY ==
--- NOTE | 2022-01-15 11:44 | CER_ITS ---
Date of service: 01/15/22 Time of Service: 11:45 Cardiac Event Recorder Referring Provider:: Johnathon Palm Indications:: Bradycardia Cardiac Event Note: This is a 14-day event recorder ordered because of bradycardia Predominant rhythm was sinus with an average heart rate of 52 bpm. Minimum sinus rate was 44, maximum 92 There were no supraventricular dysrhythmias, no atrial fibrillation There were occasional ventricular ectopic beats. Several 3-4 beat nonsustained ventricular tachycardia runs occurred. There was period of accelerated idioventricular rhythm at a rate of approximately 75 and 15 beats in length. None of the ventricular dysrhythmias were escape rhythms There were periods of second-degree AV block, some of which appear to be Mobitz type I but also periods of high-grade AV block with pauses. A total of 20 pause s occurred, the longest of these was 5.44 seconds. In general no pauses and AV block appeared to be most pronounced during sleeping hours No patient symptoms were reported The patient will be advised to reduce his metoprolol from 100 mg to 50 mg for 3 days, then discontinue. Referral to electrophysiology is planned
== END 2021-12-28 01:02 | disposition home or self-care (01) ==
LOC: RT 01:01
PROVIDERS: PCP Family Medicine; Visit Provider Family Medicine
DX: R00.1 Bradycardia, unspecified (principal)
CPT/HCPCS: 93246

== ENCOUNTER → 2022-01-03 09:26 | Outpatient (BNVA) | payer MEDICARE, BC, SELFPAY | PROVIDERS: PCP Family Medicine; Referring Provider Family Medicine; Visit Provider Surgery | DX: Z48.815 Encounter for surgical aftercare following surgery on the digestive system (principal) ==

== ENCOUNTER 2022-01-15 11:45 | Outpatient (CLI) | payer MEDICARE, BC, SELFPAY | END 2022-01-15 11:46 | LOC: CARDO 02-18 11:33 | PROVIDERS: PCP Family Medicine; Visit Provider Internal Medicine Cardiovascular Disease | DX: R00.1 Bradycardia, unspecified (principal) | CPT/HCPCS: 93248 ==

== ENCOUNTER 2022-02-05 13:00 | Outpatient (RCR) | payer SELFPAY ==
[2022-01-08 13:07] VITALS: BP 167/64; PULSE 55
[2022-01-10 13:00] VITALS: BP 157/64; PULSE 53
[2022-01-15 12:58] VITALS: BP 164/64; PULSE 58
[2022-01-17 13:03] VITALS: BP 155/65; PULSE 68
[2022-01-22 13:04] VITALS: BP 160/63; PULSE 93; O2SAT 97
[2022-01-24 13:05] VITALS: BP 160/72; PULSE 76
[2022-01-29 13:02] VITALS: BP 160/71; PULSE 79; O2SAT 95
[2022-01-31 13:16] VITALS: BP 136/64; PULSE 76
[2022-02-05 13:08] VITALS: BP 153/68; PULSE 76
[2022-02-07 13:04] VITALS: BP 154/67; PULSE 88
== END 2022-02-07 23:59 | disposition home or self-care (01) ==
LOC: CR 13:00
PROVIDERS: PCP Family Medicine; Visit Provider Family Medicine
DX: R69 Illness, unspecified (principal)

== ENCOUNTER 2022-03-05 13:00 | Outpatient (RCR) | payer SELFPAY ==
[2022-02-08 00:17] VITALS: BP 154/67; PULSE 88
[2022-02-12 13:03] VITALS: BP 151/67; PULSE 80
[2022-02-14 13:04] VITALS: BP 170/74; PULSE 74
[2022-02-19 13:15] VITALS: BP 149/67; PULSE 81
[2022-02-21 14:09] VITALS: BP 153/79; PULSE 88
[2022-02-26 13:17] VITALS: BP 154/70; PULSE 84
[2022-02-28 13:46] VITALS: BP 161/67; PULSE 87; O2SAT 98
[2022-03-05 13:11] VITALS: BP 128/55; PULSE 76
== END 2022-03-09 23:59 | disposition home or self-care (01) ==
LOC: CR 13:00
PROVIDERS: PCP Family Medicine; Visit Provider Internal Medicine Cardiovascular Disease
DX: R69 Illness, unspecified (principal)

== ENCOUNTER 2022-04-09 13:05 | Outpatient (RCR) | payer SELFPAY ==
[2022-03-10 00:07] VITALS: BP 128/55; PULSE 76
[2022-03-12 13:23] VITALS: BP 130/62; PULSE 86
[2022-03-14 13:01] VITALS: BP 135/61; PULSE 77
[2022-03-19 13:04] VITALS: BP 141/66; PULSE 80
[2022-03-21 13:00] VITALS: BP 134/62; PULSE 85
[2022-03-26 13:17] VITALS: BP 151/65; PULSE 78
[2022-04-02 13:53] VITALS: BP 162/60; PULSE 72
[2022-04-04 13:01] VITALS: BP 129/58; PULSE 88
[2022-04-09 12:59] VITALS: BP 146/65; PULSE 89
== END 2022-04-09 23:59 | disposition home or self-care (01) ==
LOC: CR 13:05
PROVIDERS: PCP Family Medicine; Visit Provider Internal Medicine Cardiovascular Disease
DX: R69 Illness, unspecified (principal)

== ENCOUNTER 2022-04-23 13:00 | Outpatient (RCR) | payer SELFPAY ==
[2022-04-10 00:14] VITALS: BP 146/65; PULSE 89
[2022-04-11 13:01] VITALS: BP 132/63; PULSE 79
[2022-04-23 14:12] VITALS: BP 113/58; PULSE 86
== END 2022-05-09 23:59 | disposition home or self-care (01) ==
LOC: CR 13:00
PROVIDERS: PCP Family Medicine; Visit Provider Internal Medicine Cardiovascular Disease
DX: R69 Illness, unspecified (principal)

== ENCOUNTER → 2022-05-07 09:41 | Outpatient (BNVA) | payer MEDICARE, BC, SELFPAY | PROVIDERS: PCP Family Medicine; Referring Provider Family Medicine; Visit Provider Internal Medicine Cardiovascular Disease | DX: Z95.0 Presence of cardiac pacemaker (principal); G47.33 Obstructive sleep apnea (adult) (pediatric); I25.9 Chronic ischemic heart disease, unspecified; Z98.890 Other specified postprocedural states | CPT/HCPCS: 99214; 99213 ==

== ENCOUNTER 2022-07-09 13:00 | Outpatient (RCR) | payer SELFPAY ==
[2022-06-18 14:02] VITALS: BP 150/58; PULSE 52
[2022-06-25 13:02] VITALS: BP 151/65; PULSE 63
[2022-06-27 13:03] VITALS: BP 141/60; PULSE 60
[2022-07-02 12:57] VITALS: BP 152/71; PULSE 58
[2022-07-04 12:58] VITALS: BP 117/53; PULSE 55
[2022-07-09 13:08] VITALS: BP 152/64; PULSE 62
== END 2022-07-10 23:59 | disposition home or self-care (01) ==
LOC: CR 13:00
PROVIDERS: PCP Family Medicine; Visit Provider Internal Medicine Cardiovascular Disease
DX: R69 Illness, unspecified (principal)

== ENCOUNTER 2022-08-08 13:02 | Outpatient (RCR) | payer SELFPAY ==
[2022-07-11 00:12] VITALS: BP 152/64; PULSE 62
[2022-07-18 13:06] VITALS: BP 119/55; PULSE 50
[2022-07-23 13:41] VITALS: BP 126/49; PULSE 53
[2022-07-25 13:00] VITALS: BP 141/57; PULSE 52
[2022-07-30 13:00] VITALS: BP 136/63; PULSE 60
[2022-08-01 13:00] VITALS: BP 145/66; PULSE 53
[2022-08-06 13:02] VITALS: BP 134/56; PULSE 68
[2022-08-08 13:00] VITALS: BP 147/63; PULSE 66
== END 2022-08-09 23:59 | disposition home or self-care (01) ==
LOC: CR 13:02
PROVIDERS: PCP Family Medicine; Visit Provider Internal Medicine Cardiovascular Disease
DX: R69 Illness, unspecified (principal)

== ENCOUNTER 2022-09-05 12:56 | Outpatient (RCR) | payer SELFPAY ==
[2022-08-10 00:20] VITALS: BP 147/63; PULSE 66
[2022-08-13 12:56] VITALS: BP 135/55; PULSE 63
[2022-08-15 12:58] VITALS: BP 145/58; PULSE 61
[2022-08-20 13:01] VITALS: BP 128/57; PULSE 55
[2022-08-22 12:59] VITALS: BP 156/69; PULSE 57
[2022-08-27 12:55] VITALS: BP 133/63; PULSE 64
[2022-08-29 13:00] VITALS: BP 153/59; PULSE 55
[2022-09-03 13:09] VITALS: BP 139/60; PULSE 71
[2022-09-05 12:56] VITALS: BP 133/58; PULSE 56
== END 2022-09-09 23:59 | disposition home or self-care (01) ==
LOC: CR 12:56
PROVIDERS: PCP Family Medicine; Visit Provider Internal Medicine Cardiovascular Disease
DX: R69 Illness, unspecified (principal)
CPT/HCPCS: S9472

== ENCOUNTER 2022-10-08 13:01 | Outpatient (RCR) | payer SELFPAY ==
[2022-09-10 13:35] VITALS: BP 137/58; PULSE 75
[2022-09-12 13:05] VITALS: BP 149/64; PULSE 63
[2022-09-17 14:23] VITALS: BP 152/63; PULSE 64
[2022-09-24 13:06] VITALS: BP 161/59; PULSE 55
[2022-10-08 13:14] VITALS: BP 152/56; PULSE 51
== END 2022-10-09 23:59 | disposition home or self-care (01) ==
LOC: CR 13:01
PROVIDERS: PCP Family Medicine; Visit Provider Internal Medicine Cardiovascular Disease
DX: Z95.1 Presence of aortocoronary bypass graft (principal); Z51.89 Encounter for other specified aftercare

== ENCOUNTER → 2022-11-05 09:14 | Outpatient (BNVA) | payer MEDICARE, BC, SELFPAY | PROVIDERS: PCP Family Medicine; Visit Provider Internal Medicine Cardiovascular Disease | DX: I25.9 Chronic ischemic heart disease, unspecified (principal); Z95.0 Presence of cardiac pacemaker; Z98.890 Other specified postprocedural states | CPT/HCPCS: 99213 ==

== ENCOUNTER 2022-11-07 13:08 | Outpatient (RCR) | payer SELFPAY ==
[2022-10-10 00:01] VITALS: BP 152/56; PULSE 51
[2022-10-10 13:29] VITALS: BP 145/57; PULSE 55
[2022-10-15 14:27] VITALS: BP 150/63; PULSE 66
[2022-10-17 13:00] VITALS: BP 162/67; PULSE 63
[2022-10-22 13:04] VITALS: BP 144/58; PULSE 51
[2022-10-24 12:56] VITALS: BP 141/55; PULSE 67
[2022-10-29 13:10] VITALS: BP 151/55; PULSE 53
[2022-10-31 13:27] VITALS: BP 155/62; PULSE 51
[2022-11-05 13:05] VITALS: BP 133/58; PULSE 60
[2022-11-07 13:07] VITALS: BP 156/60; PULSE 54
== END 2022-11-09 23:59 | disposition home or self-care (01) ==
LOC: CR 13:08
PROVIDERS: PCP Family Medicine; Visit Provider Internal Medicine Cardiovascular Disease
DX: R69 Illness, unspecified (principal)

== ENCOUNTER 2022-12-10 13:00 | Outpatient (RCR) | payer SELFPAY ==
[2022-11-10 00:15] VITALS: BP 156/60; PULSE 54
[2022-11-12 13:00] VITALS: BP 147/64; PULSE 66
[2022-11-14 13:09] VITALS: BP 152/61; PULSE 53
[2022-11-19 13:18] VITALS: BP 143/60; PULSE 60
[2022-11-21 14:17] VITALS: BP 146/61; PULSE 55
[2022-11-26 13:00] VITALS: BP 142/61; PULSE 58
[2022-11-28 13:11] VITALS: BP 145/53; PULSE 66
[2022-12-03 13:13] VITALS: BP 159/61; PULSE 61
[2022-12-05 13:00] VITALS: BP 132/51; PULSE 54
[2022-12-10 13:23] VITALS: BP 128/54; PULSE 65
== END 2022-12-10 23:59 | disposition home or self-care (01) ==
LOC: CR 13:00
PROVIDERS: PCP Family Medicine; Visit Provider Internal Medicine Cardiovascular Disease
DX: Z95.1 Presence of aortocoronary bypass graft (principal); Z51.89 Encounter for other specified aftercare

== ENCOUNTER 2023-02-06 12:59 | Outpatient (RCR) | payer SELFPAY ==
[2023-01-08 00:17] VITALS: BP 146/58; PULSE 53
[2023-01-14 13:10] VITALS: BP 146/69; PULSE 58
[2023-01-16 13:12] VITALS: BP 140/57; PULSE 52
[2023-01-21 13:06] VITALS: BP 149/62; PULSE 62
[2023-01-23 13:02] VITALS: BP 153/59; PULSE 51
[2023-01-28 13:07] VITALS: BP 148/56; PULSE 68
[2023-01-30 13:07] VITALS: BP 147/68; PULSE 59
[2023-02-04 13:03] VITALS: BP 144/64; PULSE 60
[2023-02-06 13:07] VITALS: BP 155/64; PULSE 50
== END 2023-02-07 23:59 | disposition home or self-care (01) ==
LOC: CR 12:59
PROVIDERS: PCP Family Medicine; Visit Provider Internal Medicine Cardiovascular Disease

== ENCOUNTER 2023-03-06 13:13 | Outpatient (RCR) | payer SELFPAY ==
[2023-02-08 00:21] VITALS: BP 155/64; PULSE 50
[2023-02-13 13:11] VITALS: BP 158/70; PULSE 63
[2023-02-18 13:11] VITALS: BP 131/58; PULSE 68
[2023-02-20 13:00] VITALS: BP 149/61; PULSE 54
[2023-02-25 13:06] VITALS: BP 141/59; PULSE 52
[2023-02-27 13:21] VITALS: BP 155/75; PULSE 61
[2023-03-04 13:06] VITALS: BP 147/59; PULSE 51
[2023-03-06 13:18] VITALS: BP 144/80
== END 2023-03-09 23:59 | disposition home or self-care (01) ==
LOC: CR 13:13
PROVIDERS: PCP Family Medicine; Visit Provider Internal Medicine Cardiovascular Disease
DX: R69 Illness, unspecified (principal)

== ENCOUNTER 2023-04-08 13:00 | Outpatient (RCR) | payer SELFPAY ==
[2023-03-10 00:09] VITALS: BP 144/80; PULSE 51
[2023-03-11 13:21] VITALS: BP 141/57; PULSE 44
[2023-03-13 13:08] VITALS: BP 133/67; PULSE 67
[2023-03-18 13:12] VITALS: BP 134/58; PULSE 88
[2023-03-20 13:16] VITALS: BP 128/51; PULSE 67
[2023-03-25 13:58] VITALS: BP 133/64; PULSE 57
[2023-03-27 13:11] VITALS: BP 135/63; PULSE 63
[2023-04-01 13:08] VITALS: BP 134/59; PULSE 67
[2023-04-03 13:04] VITALS: BP 135/54; PULSE 42
[2023-04-08 13:49] VITALS: BP 137/58; PULSE 68
== END 2023-04-09 23:59 | disposition home or self-care (01) ==
LOC: CR 13:00
PROVIDERS: PCP Family Medicine; Visit Provider Internal Medicine Cardiovascular Disease

== ENCOUNTER 2023-05-06 09:14 | Outpatient (CLI) | payer MEDICARE, BC, SELFPAY ==
--- NOTE | 2023-05-06 09:15 | RT.EKG_ITS ---
APPROVED REPORT Exam: Resting ECG Reason for Exam: cristinaluisito Patient Location: O HR:85 bpm ECG Measurements Heart Rate 85 AXIS OK 69 P -52 QRSd 109 QRS 69 QT 377 T 257 QTc 449 Conclusion Baseline artifact Probable atrial and ventricular paced rhythm with ventricular bigeminy
== END 2023-05-06 09:15 | disposition home or self-care (01) ==
LOC: DI.CARD 09:29
PROVIDERS: PCP Family Medicine; Referring Provider Family Medicine; Visit Provider Internal Medicine Cardiovascular Disease
DX: I49.8 Other specified cardiac arrhythmias (principal)
CPT/HCPCS: 93010

== ENCOUNTER → 2023-05-06 09:14 | Outpatient (BNVA) | payer MEDICARE, BC, SELFPAY | PROVIDERS: PCP Family Medicine; Referring Provider Family Medicine; Visit Provider Internal Medicine Cardiovascular Disease | DX: I25.10 Atherosclerotic heart disease of native coronary artery without angina pectoris (principal); Z48.812 Encounter for surgical aftercare following surgery on the circulatory system; Z95.0 Presence of cardiac pacemaker | CPT/HCPCS: 93005; 99214 ==

== ENCOUNTER 2023-05-08 13:06 | Outpatient (RCR) | payer SELFPAY ==
[2023-04-10 00:05] VITALS: BP 137/58; PULSE 68
[2023-04-10 13:37] VITALS: BP 132/63; PULSE 62
[2023-04-15 13:36] VITALS: BP 128/59; PULSE 53
[2023-04-17 13:03] VITALS: BP 134/65; PULSE 74
[2023-04-22 13:51] VITALS: BP 113/82; PULSE 74
[2023-04-24 13:13] VITALS: BP 130/56; PULSE 53
[2023-04-29 13:02] VITALS: BP 131/58; PULSE 55
[2023-05-01 13:00] VITALS: BP 137/54; PULSE 56
[2023-05-06 13:05] VITALS: BP 124/61; PULSE 71
[2023-05-08 13:07] VITALS: BP 137/67; PULSE 61
== END 2023-05-09 23:59 | disposition home or self-care (01) ==
LOC: CR 13:06
PROVIDERS: PCP Family Medicine; Visit Provider Internal Medicine Cardiovascular Disease
DX: R69 Illness, unspecified (principal)

== ENCOUNTER 2023-06-05 13:03 | Outpatient (RCR) | payer SELFPAY ==
[2023-05-10 00:14] VITALS: BP 137/67; PULSE 61
[2023-05-15 13:12] VITALS: BP 145/60; PULSE 68
[2023-05-20 13:22] VITALS: BP 125/65; PULSE 57
[2023-05-22 13:09] VITALS: BP 116/61; PULSE 67
[2023-05-27 13:03] VITALS: BP 124/52; PULSE 66
[2023-05-29 13:35] VITALS: BP 130/58; PULSE 56
[2023-06-03 13:11] VITALS: BP 132/53; PULSE 61
[2023-06-05 15:50] VITALS: BP 135/56; PULSE 44
== END 2023-06-09 23:59 | disposition home or self-care (01) ==
LOC: CR 13:03
PROVIDERS: PCP Family Medicine; Visit Provider Internal Medicine Cardiovascular Disease
DX: R69 Illness, unspecified (principal)

== ENCOUNTER 2023-07-10 13:04 | Outpatient (RCR) | payer SELFPAY ==
[2023-06-10 00:06] VITALS: BP 135/56; PULSE 44
[2023-06-10 13:21] VITALS: BP 134/56; PULSE 66
[2023-06-12 13:20] VITALS: BP 141/59; PULSE 51
[2023-06-19 13:21] VITALS: BP 139/64; PULSE 65
[2023-06-24 13:46] VITALS: BP 132/66; PULSE 64
[2023-06-26 13:04] VITALS: BP 140/65; PULSE 60
[2023-07-01 13:07] VITALS: BP 131/62; PULSE 57
[2023-07-03 13:04] VITALS: BP 143/66; PULSE 60
[2023-07-08 13:18] VITALS: BP 133/55; PULSE 57
[2023-07-10 13:16] VITALS: BP 146/65; PULSE 51
== END 2023-07-10 23:59 | disposition home or self-care (01) ==
LOC: CR 13:04
PROVIDERS: PCP Family Medicine; Visit Provider Internal Medicine Cardiovascular Disease
DX: R69 Illness, unspecified (principal)

== ENCOUNTER 2023-08-07 13:10 | Outpatient (RCR) | payer SELFPAY ==
[2023-07-11 00:04] VITALS: BP 146/65; PULSE 51
[2023-07-15 12:59] VITALS: BP 131/56; PULSE 60
[2023-07-17 13:23] VITALS: BP 123/52; PULSE 55
[2023-07-22 13:07] VITALS: BP 136/60; PULSE 45
[2023-08-05 13:40] VITALS: BP 139/56; PULSE 58
[2023-08-07 13:13] VITALS: BP 131/55; PULSE 50
== END 2023-08-09 23:59 | disposition home or self-care (01) ==
LOC: CR 13:10
PROVIDERS: PCP Family Medicine; Visit Provider Internal Medicine Cardiovascular Disease
DX: R69 Illness, unspecified (principal)

== ENCOUNTER 2023-09-08 03:05 | Outpatient (CLI) | payer MEDICARE, BC, SELFPAY ==
[2023-09-08 08:30] LABS: ALT 11 U/L (16-63); AST 20 U/L (15-37); Albumin 3.9 g/dL (3.4-5.0); Alkaline Phosphatase 105 U/L (46-116); Anion Gap 8.3 mmol/L (3-11); BUN 22 mg/dL (7-18); Bilirubin, Total 0.8 mg/dL (0.2-1.0); CO2 28.7 mmol/L (21.0-32.0); CREATININE 1.1 mg/dL (0.70-1.30); Calcium 9.9 mg/dL (8.5-10.1); Calculated LDL 59 mg/dL (<100); Chloride 107 mmol/L (98-107); Cholesterol 134 mg/dL (<200); Estimated GFR 69.14 (mL/min/1.73m2); Glucose 104 mg/dL (74-106); HDL Cholesterol 57 mg/dL (40-60); Sodium 144 mmol/L (136-145); Total Protein 6.9 g/dL (6.4-8.2); Triglyceride 91 mg/dL (<150)
== END 2023-09-08 03:06 | disposition home or self-care (01) ==
PROVIDERS: PCP Family Medicine; Visit Provider Family Medicine
DX: I25.10 Atherosclerotic heart disease of native coronary artery without angina pectoris (principal); I10 Essential (primary) hypertension
CPT/HCPCS: 36415; 80053; 80061

== ENCOUNTER 2023-09-09 13:13 | Outpatient (RCR) | payer SELFPAY ==
[2023-08-10 00:03] VITALS: BP 131/55; PULSE 50
[2023-08-12 13:55] VITALS: BP 133/56; PULSE 32
[2023-08-14 13:11] VITALS: BP 151/51; PULSE 32
[2023-08-19 13:20] VITALS: BP 137/50; PULSE 49
[2023-08-21 13:52] VITALS: BP 132/52; PULSE 32
[2023-08-26 13:00] VITALS: BP 130/52; PULSE 61
[2023-08-26 13:04] VITALS: BP 130/52; PULSE 61
[2023-08-28 13:15] VITALS: BP 147/54
[2023-09-02 13:46] VITALS: BP 130/55; PULSE 49
[2023-09-09 13:08] VITALS: BP 153/69; PULSE 55
== END 2023-09-09 23:59 | disposition home or self-care (01) ==
LOC: CR 13:13
PROVIDERS: PCP Family Medicine; Visit Provider Internal Medicine Cardiovascular Disease
DX: R69 Illness, unspecified (principal)

== ENCOUNTER 2023-10-09 13:09 | Outpatient (RCR) | payer SELFPAY ==
[2023-09-10 00:04] VITALS: BP 131/55; PULSE 50
[2023-09-11 13:03] VITALS: BP 143/52; PULSE 32
[2023-09-18 13:14] VITALS: BP 142/80; PULSE 52
[2023-09-25 13:46] VITALS: BP 154/65; PULSE 58
[2023-09-30 13:18] VITALS: BP 150/65; PULSE 54
[2023-10-07 14:01] VITALS: BP 149/65; PULSE 50
[2023-10-09 13:23] VITALS: BP 142/60; PULSE 82
== END 2023-10-09 23:59 | disposition home or self-care (01) ==
LOC: CR 13:09
PROVIDERS: PCP Family Medicine; Visit Provider Internal Medicine Cardiovascular Disease
DX: R69 Illness, unspecified (principal)

== ENCOUNTER → 2023-10-30 01:49 | Outpatient (CLI) | payer MEDICARE, BC, SELFPAY ==
[2023-09-04 13:12] VITALS: BP 133/50; PULSE 44
[2023-09-16 13:24] VITALS: BP 145/60; PULSE 44
[2023-10-16 15:45] VITALS: BP 145/53; PULSE 42
[2023-10-21 13:46] VITALS: BP 141/55; PULSE 49
[2023-10-28 13:10] VITALS: BP 156/65; PULSE 50
== END ==
PROVIDERS: PCP Family Medicine; Visit Provider Internal Medicine Cardiovascular Disease
DX: I25.9 Chronic ischemic heart disease, unspecified (principal); I49.8 Other specified cardiac arrhythmias; Z98.890 Other specified postprocedural states
CPT/HCPCS: 93306

== ENCOUNTER → 2023-11-04 13:31 | Outpatient (BNVA) | payer MEDICARE, BC, SELFPAY | PROVIDERS: PCP Family Medicine; Visit Provider Internal Medicine Interventional Cardiology | DX: I25.9 Chronic ischemic heart disease, unspecified (principal); I49.8 Other specified cardiac arrhythmias; Z95.0 Presence of cardiac pacemaker; Z98.890 Other specified postprocedural states | CPT/HCPCS: 99213 ==

== ENCOUNTER 2023-11-06 13:03 | Outpatient (RCR) | payer SELFPAY ==
[2023-10-10 00:03] VITALS: BP 131/55; PULSE 50
[2023-10-14 13:18] VITALS: BP 147/56; PULSE 51
[2023-10-23 14:46] VITALS: BP 120/60; PULSE 62
[2023-11-04 14:52] VITALS: BP 142/56; PULSE 50
[2023-11-06 13:04] VITALS: BP 144/59; PULSE 48
== END 2023-11-09 23:59 | disposition home or self-care (01) ==
LOC: CR 13:03
PROVIDERS: PCP Family Medicine; Visit Provider Internal Medicine Cardiovascular Disease
DX: R69 Illness, unspecified (principal)

== ENCOUNTER 2023-12-04 13:15 | Outpatient (RCR) | payer SELFPAY ==
[2023-11-10 00:15] VITALS: BP 131/55; PULSE 50
[2023-11-11 13:03] VITALS: BP 155/60; PULSE 57
[2023-11-13 13:02] VITALS: BP 151/62; PULSE 60
[2023-11-18 14:27] VITALS: BP 120/76; PULSE 51
[2023-11-20 13:13] VITALS: BP 146/55; PULSE 50
[2023-11-25 13:43] VITALS: BP 165/58; PULSE 50
[2023-11-27 13:11] VITALS: BP 137/58; PULSE 55
[2023-12-02 13:11] VITALS: BP 144/61; PULSE 58
[2023-12-04 13:22] VITALS: BP 159/69; PULSE 56
== END 2023-12-10 23:59 | disposition home or self-care (01) ==
LOC: CR 13:15
PROVIDERS: PCP Family Medicine; Visit Provider Internal Medicine Interventional Cardiology
DX: R69 Illness, unspecified (principal)

== ENCOUNTER 2024-01-06 13:11 | Outpatient (RCR) | payer SELFPAY ==
[2023-12-11 00:22] VITALS: BP 131/55; PULSE 50
[2023-12-16 13:58] VITALS: BP 149/55; PULSE 55
[2023-12-18 13:23] VITALS: BP 134/57; PULSE 54
[2023-12-23 13:40] VITALS: BP 121/62; PULSE 50
[2023-12-30 13:12] VITALS: BP 144/61; PULSE 59
[2024-01-01 13:37] VITALS: BP 146/60; PULSE 56
[2024-01-06 13:17] VITALS: BP 139/78; PULSE 64
== END 2024-01-08 23:59 | disposition home or self-care (01) ==
LOC: CR 13:11
PROVIDERS: PCP Family Medicine; Visit Provider Internal Medicine Cardiovascular Disease
DX: R69 Illness, unspecified (principal)

== ENCOUNTER → 2024-01-08 13:28 | Outpatient (BNVA) | payer MEDICARE, BC, SELFPAY | PROVIDERS: PCP Family Medicine; Referring Provider Family Medicine; Visit Provider Podiatrist | DX: L60.3 Nail dystrophy (principal); L84 Corns and callosities; I73.9 Peripheral vascular disease, unspecified; D50.8 Other iron deficiency anemias; B35.1 Tinea unguium; B35.3 Tinea pedis; Z79.01 Long term (current) use of anticoagulants; R25.2 Cramp and spasm; R09.89 Other specified symptoms and signs involving the circulatory and respiratory systems; R60.0 Localized edema; L65.9 Nonscarring hair loss, unspecified; R20.8 Other disturbances of skin sensation; R23.9 Unspecified skin changes | CPT/HCPCS: 11721; 17110 ==

== ENCOUNTER 2024-02-05 13:08 | Outpatient (RCR) | payer SELFPAY ==
[2024-01-09 00:23] VITALS: BP 131/55; PULSE 50
[2024-01-13 13:09] VITALS: BP 142/60; PULSE 56
[2024-01-15 13:07] VITALS: BP 161/67; PULSE 59
[2024-01-20 13:08] VITALS: BP 148/54; PULSE 54
[2024-01-22 13:42] VITALS: BP 143/60; PULSE 52
[2024-01-27 13:08] VITALS: BP 157/57; PULSE 50
[2024-01-29 14:40] VITALS: BP 141/60; PULSE 74
[2024-02-05 13:28] VITALS: BP 142/59; PULSE 59
== END 2024-02-08 23:59 | disposition home or self-care (01) ==
LOC: CR 13:08
PROVIDERS: PCP Family Medicine; Visit Provider Internal Medicine Cardiovascular Disease
DX: R69 Illness, unspecified (principal)

== ENCOUNTER 2024-03-09 13:24 | Outpatient (RCR) | payer SELFPAY ==
[2024-02-10 14:17] VITALS: BP 156/57; PULSE 52
[2024-02-12 13:39] VITALS: BP 168/64; PULSE 51
[2024-02-17 13:25] VITALS: BP 135/56; PULSE 51
[2024-02-19 12:59] VITALS: BP 143/55; PULSE 51
[2024-02-24 13:07] VITALS: BP 147/57; PULSE 50
[2024-02-26 13:02] VITALS: BP 144/61; PULSE 56
[2024-03-02 13:09] VITALS: BP 160/59; PULSE 51
[2024-03-04 13:11] VITALS: BP 147/52; PULSE 49
[2024-03-09 13:48] VITALS: BP 139/58; PULSE 53
== END 2024-03-09 23:59 | disposition home or self-care (01) ==
LOC: CR 13:24
PROVIDERS: PCP Family Medicine; Visit Provider Internal Medicine Cardiovascular Disease
DX: R69 Illness, unspecified (principal)

== ENCOUNTER 2024-04-08 13:15 | Outpatient (RCR) | payer SELFPAY ==
[2024-03-10 00:30] VITALS: BP 139/58; PULSE 53
[2024-03-11 13:05] VITALS: BP 139/59; PULSE 51; O2SAT 98
[2024-03-16 14:05] VITALS: BP 144/53; PULSE 54
[2024-03-18 14:35] VITALS: BP 141/59; PULSE 54
[2024-03-23 13:22] VITALS: BP 145/52; PULSE 53
[2024-03-25 13:49] VITALS: BP 134/62; PULSE 52
[2024-04-06 14:43] VITALS: BP 145/55; PULSE 52
[2024-04-08 13:19] VITALS: BP 137/59; PULSE 51
== END 2024-04-09 23:59 | disposition home or self-care (01) ==
LOC: CR 13:15
PROVIDERS: PCP Family Medicine; Visit Provider Internal Medicine Cardiovascular Disease
DX: R69 Illness, unspecified (principal)

== ENCOUNTER → 2024-05-06 10:38 | Outpatient (BNVA) | payer MEDICARE, BC, SELFPAY | PROVIDERS: PCP Family Medicine; Visit Provider Internal Medicine Cardiovascular Disease | DX: I25.10 Atherosclerotic heart disease of native coronary artery without angina pectoris (principal); Z95.0 Presence of cardiac pacemaker; G47.33 Obstructive sleep apnea (adult) (pediatric); Z98.890 Other specified postprocedural states; I25.9 Chronic ischemic heart disease, unspecified; I49.8 Other specified cardiac arrhythmias | CPT/HCPCS: 99213 ==

== ENCOUNTER 2024-05-06 13:20 | Outpatient (RCR) | payer SELFPAY ==
[2024-04-15 14:23] VITALS: BP 134/58; PULSE 52
[2024-04-20 13:24] VITALS: BP 135/62; PULSE 55
[2024-04-22 13:33] VITALS: BP 152/62; PULSE 51
[2024-04-27 13:21] VITALS: BP 154/58; PULSE 52
[2024-04-29 13:33] VITALS: BP 163/74; PULSE 62
[2024-05-04 13:44] VITALS: BP 126/56; PULSE 51
[2024-05-06 13:29] VITALS: BP 124/57; PULSE 52
== END 2024-05-09 23:59 | disposition home or self-care (01) ==
LOC: CR 13:20
PROVIDERS: PCP Family Medicine; Visit Provider Internal Medicine Cardiovascular Disease
DX: R69 Illness, unspecified (principal)

== ENCOUNTER 2024-06-03 12:59 | Outpatient (RCR) | payer SELFPAY ==
[2024-05-11 14:37] VITALS: BP 133/57; PULSE 51
[2024-05-18 13:00] VITALS: BP 134/55; PULSE 50; O2SAT 96
[2024-05-25 13:10] VITALS: BP 125/59; PULSE 50
[2024-05-27 13:30] VITALS: BP 148/54; PULSE 51
[2024-06-01 14:06] VITALS: BP 148/59; PULSE 51
[2024-06-03 13:04] VITALS: BP 144/57; PULSE 50
== END 2024-06-09 23:59 | disposition home or self-care (01) ==
LOC: CR 12:59
PROVIDERS: PCP Family Medicine; Visit Provider Internal Medicine Cardiovascular Disease
DX: R69 Illness, unspecified (principal)

== ENCOUNTER → 2024-06-17 15:08 | Outpatient (BNVA) | payer MEDICARE, BC, SELFPAY | PROVIDERS: PCP Family Medicine; Referring Provider Family Medicine; Visit Provider Podiatrist | DX: M25.571 Pain in right ankle and joints of right foot (principal); M25.572 Pain in left ankle and joints of left foot; L60.3 Nail dystrophy; L84 Corns and callosities; I73.89 Other specified peripheral vascular diseases; E50.8 Other manifestations of vitamin A deficiency; D64.9 Anemia, unspecified; B35.1 Tinea unguium; B35.3 Tinea pedis | CPT/HCPCS: 11721 ==

== ENCOUNTER 2024-06-22 01:49 | Outpatient (CLI) | payer MEDICARE, BC, SELFPAY ==
--- NOTE | 2024-06-22 14:18 | DI.RAD_ITS ---
Exam(s) XR ANKLE LT COMPLETE EXAM: XR ANKLE LT COMPLETE CLINICAL HISTORY: Left ankle joint pain,m25.572. TECHNIQUE: 2D digital imaging was performed. COMPARISON: No exams were available for comparison FINDINGS: 3 views No evidence of fracture nor widening the ankle mortise. Soft tissue swelling is noted medially. Acc essory ossicle is noted subjacent to the medial malleolus but no fracture. Talar dome unremarkable. Pes planus is noted. There is a small inferior calcaneal spur. Also enthesophyte noted posteriorly at the Achilles insertion on the posterior calcaneus. IMPRESSION: Soft tissue swelling on the medial aspect of the ankle. No fractures evident. Pes planus noted DATA REPOSITORY: RADIATION DOSE DELIVERED:
--- NOTE | 2024-06-22 14:18 | DI.RAD_ITS ---
Exam(s) XR ANKLE RT COMPLETE EXAM: XR ANKLE RT COMPLETE CLINICAL HISTORY: Comparison views,pain rt ankle, m25.571. TECHNIQUE: 2D digital imaging was performed. COMPARISON: CR XR ANKLE LT COMPLETE from 06/22/2024 FINDINGS: 3 views No evidence fracture or widening of the ankle mortise. However, there are degenerative changes in th e ankle joint with narrowing of medial aspect of the tibiotalar joint, particularly the articular spa ce between the inner aspect of the medial malleolus and the medial aspect of the talus. There is als o an enthesophyte off the outer aspect the medial malleolus. There is a moderate size inferior calcaneal spur noted. No calcifications seen in the plantar fascia . IMPRESSION: There are degenerative changes in the medial aspect of the tibiotalar joint. Similar findings are no t seen in the opposite-left ankle. DATA REPOSITORY: RADIATION DOSE DELIVERED:
== END 2024-06-22 02:09 ==
PROVIDERS: PCP Family Medicine; Visit Provider Podiatrist
DX: M19.071 Primary osteoarthritis, right ankle and foot (principal); R22.42 Localized swelling, mass and lump, left lower limb
CPT/HCPCS: 73610

== ENCOUNTER 2024-07-08 13:04 | Outpatient (RCR) | payer SELFPAY ==
[2024-06-10 00:18] VITALS: BP 144/57; PULSE 50
[2024-06-10 13:01] VITALS: BP 149/60; PULSE 53
[2024-06-15 13:56] VITALS: BP 147/58; PULSE 50
[2024-06-17 13:19] VITALS: BP 137/59; PULSE 50
[2024-06-22 13:06] VITALS: BP 146/61; PULSE 56
[2024-06-24 13:33] VITALS: BP 156/60; PULSE 51
[2024-06-29 13:25] VITALS: BP 153/64; PULSE 53
[2024-07-01 13:07] VITALS: BP 120/68; PULSE 41
[2024-07-06 13:23] VITALS: BP 141/58; PULSE 52
[2024-07-08 13:09] VITALS: BP 132/59; PULSE 55
== END 2024-07-10 23:59 | disposition home or self-care (01) ==
LOC: CR 13:04
PROVIDERS: PCP Family Medicine; Visit Provider Internal Medicine Cardiovascular Disease
DX: R69 Illness, unspecified (principal)

== ENCOUNTER → 2024-07-15 13:57 | Outpatient (BNVA) | payer MEDICARE, BC, SELFPAY | PROVIDERS: PCP Family Medicine; Referring Provider Family Medicine; Visit Provider Podiatrist | DX: M25.572 Pain in left ankle and joints of left foot (principal); M25.571 Pain in right ankle and joints of right foot; L60.3 Nail dystrophy; L84 Corns and callosities; I73.89 Other specified peripheral vascular diseases; D50.8 Other iron deficiency anemias; B35.1 Tinea unguium; B35.3 Tinea pedis | CPT/HCPCS: 20605; J0702; J1100 ==

== ENCOUNTER 2024-08-05 13:00 | Outpatient (RCR) | payer SELFPAY ==
[2024-07-11 00:26] VITALS: BP 144/57; PULSE 50
[2024-07-13 13:15] VITALS: BP 154/61; PULSE 52
[2024-07-15 13:12] VITALS: BP 156/57; PULSE 54; O2SAT 96
[2024-07-20 13:34] VITALS: BP 128/58; PULSE 57
[2024-07-22 13:12] VITALS: BP 135/58; PULSE 55
[2024-07-27 13:11] VITALS: BP 138/54; PULSE 52
[2024-07-29 13:32] VITALS: BP 130/50; PULSE 53
[2024-08-03 13:24] VITALS: BP 147/55; PULSE 50
[2024-08-05 13:00] VITALS: BP 132/50; PULSE 52
== END 2024-08-09 23:59 | disposition home or self-care (01) ==
LOC: CR 13:00
PROVIDERS: PCP Family Medicine; Visit Provider Internal Medicine Cardiovascular Disease
DX: R69 Illness, unspecified (principal)

== ENCOUNTER → 2024-08-26 13:57 | Outpatient (BNVA) | payer MEDICARE, BC, SELFPAY | PROVIDERS: PCP Family Medicine; Referring Provider Family Medicine; Visit Provider Podiatrist | DX: M25.571 Pain in right ankle and joints of right foot (principal); M25.572 Pain in left ankle and joints of left foot; L60.3 Nail dystrophy; L84 Corns and callosities; I73.9 Peripheral vascular disease, unspecified; D50.8 Other iron deficiency anemias; D64.9 Anemia, unspecified; B35.1 Tinea unguium; B35.3 Tinea pedis | CPT/HCPCS: 20600; 20605; J0702; J1100 ==

== ENCOUNTER 2024-09-09 13:06 | Outpatient (RCR) | payer SELFPAY ==
[2024-08-10 14:39] VITALS: BP 150/59; PULSE 50
[2024-08-12 13:11] VITALS: BP 141/58; PULSE 57; O2SAT 95
[2024-08-17 14:57] VITALS: BP 140/58; PULSE 56
[2024-08-19 13:20] VITALS: BP 143/56; PULSE 58
[2024-08-24 15:39] VITALS: BP 164/67; PULSE 52
[2024-08-26 13:00] VITALS: BP 150/63; PULSE 53; O2SAT 98
[2024-09-07 13:29] VITALS: BP 142/56; PULSE 50
[2024-09-09 13:08] VITALS: BP 142/57; PULSE 51
== END 2024-09-09 23:59 | disposition home or self-care (01) ==
LOC: CR 13:06
PROVIDERS: PCP Family Medicine; Visit Provider Internal Medicine Cardiovascular Disease
DX: R69 Illness, unspecified (principal)

== ENCOUNTER 2024-09-30 13:03 | Outpatient (RCR) | payer SELFPAY ==
[2024-09-10 00:36] VITALS: BP 142/57; PULSE 51
[2024-09-14 13:08] VITALS: BP 143/56; PULSE 50
[2024-09-16 14:08] VITALS: BP 156/61; PULSE 56
[2024-09-21 13:06] VITALS: BP 149/56; PULSE 53
[2024-09-23 13:05] VITALS: BP 144/59; PULSE 55
[2024-09-28 13:14] VITALS: BP 160/59; PULSE 56
[2024-09-30 13:08] VITALS: BP 149/62; PULSE 50; O2SAT 96
== END 2024-10-09 23:59 | disposition home or self-care (01) ==
LOC: CR 13:03
PROVIDERS: PCP Family Medicine; Visit Provider Internal Medicine Cardiovascular Disease
DX: R69 Illness, unspecified (principal)

== ENCOUNTER → 2024-10-04 13:09 | Outpatient (BNVA) | payer MEDICARE, BC, SELFPAY | PROVIDERS: PCP Family Medicine; Referring Provider Family Medicine; Visit Provider Podiatrist | DX: M25.571 Pain in right ankle and joints of right foot (principal); M25.572 Pain in left ankle and joints of left foot; L60.3 Nail dystrophy; L84 Corns and callosities; I73.89 Other specified peripheral vascular diseases; D50.8 Other iron deficiency anemias; D64.9 Anemia, unspecified; B35.1 Tinea unguium; B35.3 Tinea pedis; M76.822 Posterior tibial tendinitis, left leg | CPT/HCPCS: 99213 ==

== ENCOUNTER → 2024-10-27 13:57 | Outpatient (BNVA) | payer MEDICARE, BC, SELFPAY | PROVIDERS: PCP Family Medicine; Referring Provider Family Medicine; Visit Provider Podiatrist | DX: L60.3 Nail dystrophy (principal); I73.89 Other specified peripheral vascular diseases; D50.8 Other iron deficiency anemias; B35.1 Tinea unguium; R09.89 Other specified symptoms and signs involving the circulatory and respiratory systems; R60.0 Localized edema; R20.8 Other disturbances of skin sensation; L65.9 Nonscarring hair loss, unspecified; R23.8 Other skin changes; L60.2 Onychogryphosis | CPT/HCPCS: 11721 ==

== ENCOUNTER 2024-11-05 07:58 | Outpatient (CLI) | payer MEDICARE, BC, SELFPAY ==
--- NOTE | 2024-11-05 07:45 | RT.EKG_ITS ---
APPROVED REPORT Exam: Resting ECG Reason for Exam: CAD, afib Patient Location: O HR:60 bpm ECG Measurements Heart Rate 60 AXIS TX [id number] P [id number] QRSd 152 QRS -90 QT 422 T 83 QTc 422 Conclusion Afib/flutter and ventricular-paced rhythm...V-paced rhythm, A-rate>240 No further analysis attempted due to paced rhythm Baseline wander in lead(s) V3
== END 2024-11-05 07:59 | disposition home or self-care (01) ==
LOC: DI.CARD 08:00
PROVIDERS: PCP Family Medicine; Visit Provider Internal Medicine Cardiovascular Disease
DX: I25.10 Atherosclerotic heart disease of native coronary artery without angina pectoris
CPT/HCPCS: 93010

== ENCOUNTER → 2024-11-05 09:56 | Outpatient (BNVA) | payer MEDICARE, BC, SELFPAY | PROVIDERS: PCP Family Medicine; Visit Provider Internal Medicine Cardiovascular Disease | DX: I48.19 Other persistent atrial fibrillation (principal); I25.9 Chronic ischemic heart disease, unspecified; Z95.0 Presence of cardiac pacemaker | CPT/HCPCS: 93005; 99214 ==

== ENCOUNTER 2024-11-09 14:09 | Outpatient (RCR) | payer SELFPAY ==
[2024-10-10 00:13] VITALS: BP 142/57; PULSE 51
[2024-10-26 13:32] VITALS: BP 160/58; PULSE 50
[2024-10-28 13:34] VITALS: BP 151/61; PULSE 58
[2024-11-09 13:26] VITALS: BP 162/60; PULSE 60
== END 2024-11-09 23:59 | disposition home or self-care (01) ==
LOC: CR 14:09
PROVIDERS: PCP Family Medicine; Visit Provider Internal Medicine Cardiovascular Disease
DX: R69 Illness, unspecified (principal)

== ENCOUNTER 2024-12-09 12:59 | Outpatient (RCR) | payer SELFPAY ==
[2024-11-10 00:09] VITALS: BP 142/57; PULSE 51
[2024-11-11 13:35] VITALS: BP 163/63; PULSE 60
[2024-11-16 13:05] VITALS: BP 166/67; PULSE 84
[2024-11-23 13:15] VITALS: BP 145/63; PULSE 60
[2024-11-25 13:00] VITALS: BP 162/64; PULSE 60; O2SAT 98
[2024-11-30 14:24] VITALS: BP 149/64; PULSE 60
[2024-12-02 13:05] VITALS: BP 161/69; PULSE 60
[2024-12-07 14:50] VITALS: BP 156/58; PULSE 60
[2024-12-09 13:02] VITALS: BP 151/65; PULSE 60; O2SAT 97
== END 2024-12-10 23:59 | disposition home or self-care (01) ==
LOC: CR 12:59
PROVIDERS: PCP Family Medicine; Visit Provider Internal Medicine Cardiovascular Disease
DX: R69 Illness, unspecified (principal)

== ENCOUNTER 2025-01-04 13:07 | Outpatient (RCR) | payer SELFPAY ==
[2024-12-14 13:47] VITALS: BP 148/65; PULSE 76
[2024-12-21 13:45] VITALS: BP 129/67; PULSE 60
[2024-12-28 13:32] VITALS: BP 123/54; PULSE 60
[2024-12-30 13:26] VITALS: BP 134/65; PULSE 60
[2025-01-04 13:09] VITALS: BP 141/58; PULSE 60
== END 2025-01-07 23:59 | disposition home or self-care (01) ==
LOC: CR 13:07
PROVIDERS: PCP Family Medicine; Visit Provider Internal Medicine Cardiovascular Disease
DX: R69 Illness, unspecified (principal)

== ENCOUNTER 2025-02-03 13:02 | Outpatient (RCR) | payer SELFPAY ==
[2025-01-08 00:10] VITALS: BP 141/58; PULSE 60
[2025-01-11 14:28] VITALS: BP 155/64; PULSE 75
[2025-01-13 13:39] VITALS: BP 144/64; PULSE 60
[2025-01-20 13:30] VITALS: BP 157/66; PULSE 60
[2025-01-27 14:32] VITALS: BP 153/55; PULSE 50
[2025-02-01 14:21] VITALS: BP 158/55; PULSE 54
== END 2025-02-07 23:59 | disposition home or self-care (01) ==
LOC: CR 13:02
PROVIDERS: PCP Family Medicine; Visit Provider Internal Medicine Cardiovascular Disease
DX: R69 Illness, unspecified (principal)

== ENCOUNTER 2025-03-08 13:09 | Outpatient (RCR) | payer SELFPAY ==
[2025-02-08 00:05] VITALS: BP 141/58; PULSE 60
[2025-02-08 13:13] VITALS: BP 154/61; PULSE 54
[2025-02-10 13:04] VITALS: BP 146/58; PULSE 54; O2SAT 96
[2025-02-17 13:00] VITALS: BP 163/60; PULSE 50; O2SAT 98
[2025-02-22 13:44] VITALS: BP 152/60; PULSE 61
[2025-02-24 14:09] VITALS: BP 162/55; PULSE 50
[2025-03-08 13:14] VITALS: BP 156/57; PULSE 57
== END 2025-03-09 23:59 | disposition home or self-care (01) ==
LOC: CR 13:09
PROVIDERS: PCP Family Medicine; Visit Provider Internal Medicine Cardiovascular Disease
DX: R69 Illness, unspecified (principal)

== ENCOUNTER 2025-03-31 13:16 | Outpatient (RCR) | payer SELFPAY ==
[2025-03-10 00:16] VITALS: BP 141/58; PULSE 60
[2025-03-15 13:34] VITALS: BP 152/53; PULSE 57
[2025-03-17 13:19] VITALS: BP 140/55; PULSE 57
[2025-03-22 13:15] VITALS: BP 149/52; PULSE 51
[2025-03-24 13:45] VITALS: BP 139/57; PULSE 52
[2025-03-29 14:22] VITALS: BP 141/56; PULSE 59
[2025-03-31 13:31] VITALS: BP 140/59; PULSE 54
== END 2025-04-09 23:59 | disposition home or self-care (01) ==
LOC: CR 13:16
PROVIDERS: PCP Family Medicine; Visit Provider Internal Medicine Cardiovascular Disease
DX: R69 Illness, unspecified (principal)

== ENCOUNTER 2025-05-02 02:04 | Outpatient (CLI) | payer MEDICARE, BC, SELFPAY ==
[2025-02-03 13:09] VITALS: BP 154/60; PULSE 52
--- NOTE | 2025-05-02 12:55 | DI.US_ITS ---
APPROVED REPORT EXAM: Comprehensive 2D, Doppler, and color-flow Echocardiogram Patient Location: Out-Patient Wet [employer] Conveyor Tender: Mago Horton RDCS (AE) Indications: Atrial Fibrillation, Prior mitral valve repair, CABG, pacemaker Other Information Study Quality: Fair Conclusion Mild concentric left ventricular hypertrophy. Ejection fraction is 55%. Overall wall wall motion appears normal Normal right ventricular size and function Mildly enlarged left atrium. Normal right atrial size Device lead noted in the right heart Aortic valve is mildly sclerotic and trileaflet with mild to moderate regurgitation Prior mitral valve repair. Moderate central mitral regurgitation Estimated right ventricular systolic pressure is 26 mmHg Ascending aorta measures 3.6 cm Wall motion Left Ventricle The left ventricle is normal size. The overall left ventricular systolic function appears normal. Mild concentric left ventricular hypertrophy. There is no ventricular septal defect visualized. LVEF is 54%. Right Ventricle Right ventricle is grossly normal in size. Right ventricular systolic function is grossly normal. Pacemaker lead is present in the right ventricle. Atria Left atrium is mildly dilated. The right atrium size is normal. The interatrial septum is intact with no evidence for an atrial septal defect. Aortic Valve The aortic valve is mildly sclerotic Aortic valve is trileaflet. There is no aortic valvular stenosis. Mild to moderate aortic regurgitation. Mitral Valve Mitral annuloplasty changes are present. No evidence of mitral valve stenosis. Moderate mitral regurgitation. Tricuspid Valve The tricuspid valve is normal in structure. There is no tricuspid valve stenosis. Mild tricuspid regurgitation. The RVSP is 25.7_ mmHg. Pulmonic Valve The pulmonary valve is normal in structure. There is no pulmonic valvular stenosis. Trace pulmonic regurgitation. Great Vessels The aortic root is normal in size. The ascending aorta is mildly dilated. Aortic arch is not well visualized. IVC is normal in size and collapses >50% with inspiration. Pericardium There is no pericardial effusion. 2D Dimensions IVSD d PLAX 1.30 cm M: 0.6-1.2 Ao Root d 3.60 cm M: 3.1 - 3.7 LVPW d PLAX 1.30 cm M: 0.6 - 1.2 Ao Asc Diam d 3.60 cm M: 2.6 - 3.4 LVID d PLAX 5.63 cm M: 4.2 - 5.8 LVDs 4.03 cm M: 2.5 - 4.0 LV EF Teichholz 54.0 % FS 28.28 % LV EDV (Teich) 155.3 mL LV ESV (Teich) 71.4 mL M-Mode TAPSE 1.85 cm (M/F) >1.7 Auto EF LV EDV A4C 166.1 mL LV EDV A2C 144.6 mL LV EDV BP 158.5 mL LV ESV A4C 77.7 mL LV ESV A2C 68.0 mL LV ESV BP 72.4 mL LVEF(%) A4C 53.2 % LVEF(%) A2C 53.0 % LVEF(%) BP 54.3 % LV SV A4C 88.3 ml LV SV A2C 76.6 ml LV SV BP 86.1 ml LV CO A4C 5.0 L/min LV CO A2C 4.3 L/min LV CO BP 4.6 L/min HR A4C 56.34 BPM HR A2C 56.16 BPM LV EDV Index (BP) LA Volume LA Length A4C 5.2 cm LA Length A2C 5.1 cm LA Area A4C s 22.25 cm2 LA Area A2C s 22.50 cm2 LA Vol A4C A-L 81.21 mL LA Vol A2C A-L 84.54 mL LA Vol Biplane A-L 83.6 mL LA Vol/BSA A4C A-L LA Vol/BSA A2C A-L LA Vol/BSA BP A-L 38.5 mL/m2 LA Vol A4C MOD 76.9 mL LA Vol A2C MOD 79.3 mL LA Vol BP MOD 78.6 mL RA Volume RA Area A4C 16.2 cm2 RA ESV A4C (A-L) 43.7mL RA Vol/BSA A4C A-L RA Length A4C 5.1 cm RA ESV A4C (MOD) 41.8mL LV Diastology MV E' medial 0.056 (>0.07 m/s) MV E Vmax 1.42 (0.4-1.3 m/s) MV E/E' MED 25.52 (<14) MV A Vmax 1.00 (0.4-1.3 m/s) MV E' lateral 0.091 (>0.1 m/s) E/A Ratio 1.4 MV E/E' LAT 15.71 (<14) MV E' Average 0.073 m/s MV E/E'(average) 19.45 Aortic Valve AoV Vmax 1.18 m/s LVOT Vmax 1.06 m/s AoV Peak Grad 38.2 mmHg LVOT Peak Grad 4.5 mmHg AoV Area (Vmax) 3.40 cm2 LVOT VTI 0.282 m AoV VTI 0.319 m LVOT Mean Grad 2.6 mmHg AoV Mean Nate. 0.84 m/s LVOT SV 107.06 mL AoV Mean Grad 3.2 mmHg LVOT Diam s 2.20 cm AoV Area (VTI) 3.36 cm2 AV Regurg Peak Gr. 5.59 mmHg Velocity Ratio 0.90 AR Decel [place] 2.5m/sec2 AR DT 1676 msec AR PHT 486 msec AR Vmax 4.21 m/s Mitral Valve MV DT 301 (160-240 msec) MR Vmax 4.84 m/s MV Vmax TIPS 1.51 m/s MR VTI 1.810 m MV Mean Grad 3.3 (<2mmHg) MR Peak Grad 93.5 mmHg MV VTI 0.554 m MR Mean Grad 61.0 mmHg Pulmonary Valve PV Vmax 0.84 (0.5-1.5 m/s) RVOT Vmax 0.68 m/s PV Peak Grad 2.9 mmHg RVOT Peak Gr. 1.9 mmHg PV Mean Nate 0.62 m/s RVOT VTI 0.160 m PV Mean Grad 1.8 mmHg RVOT Mean Gr. 1.0 mmHg Tricuspid Valve RA Pressure 3.00 mmHg TR Vmax 2.38 m/s TV S' 0.10 m/s TR Peak Grad 22.6 mmHg RVSP (TR) 25.7 mmHg
== END 2025-05-02 02:24 ==
PROVIDERS: PCP Family Medicine; Visit Provider Internal Medicine Cardiovascular Disease
DX: I51.7 Cardiomegaly (principal); I48.91 Unspecified atrial fibrillation
CPT/HCPCS: 93306

== ENCOUNTER 2025-05-05 13:00 | Outpatient (RCR) | payer SELFPAY ==
[2025-04-10 00:22] VITALS: BP 141/58; PULSE 60
[2025-04-12 13:14] VITALS: BP 151/58; PULSE 51
[2025-04-14 13:56] VITALS: BP 144/57; PULSE 52
[2025-04-19 14:31] VITALS: BP 149/57; PULSE 51
[2025-04-26 13:16] VITALS: BP 150/58; PULSE 56
[2025-04-28 13:44] VITALS: BP 163/50; PULSE 50
[2025-05-03 14:47] VITALS: BP 151/54; PULSE 56
[2025-05-05 13:00] VITALS: BP 124/55; PULSE 52
== END 2025-05-09 23:59 | disposition home or self-care (01) ==
LOC: CR 13:00
PROVIDERS: PCP Family Medicine; Visit Provider Internal Medicine Cardiovascular Disease
DX: R69 Illness, unspecified (principal)

== ENCOUNTER → 2025-05-06 10:56 | Outpatient (BNVA) | payer MEDICARE, BC, SELFPAY | PROVIDERS: PCP Family Medicine; Referring Provider Family Medicine; Visit Provider Internal Medicine Cardiovascular Disease | DX: I48.19 Other persistent atrial fibrillation (principal); I25.9 Chronic ischemic heart disease, unspecified; Z98.890 Other specified postprocedural states; I10 Essential (primary) hypertension; Z95.0 Presence of cardiac pacemaker; Z79.01 Long term (current) use of anticoagulants | CPT/HCPCS: 99214 ==

== ENCOUNTER → 2025-05-23 13:56 | Outpatient (BNVA) | payer MEDICARE, BC, SELFPAY | PROVIDERS: PCP Family Medicine; Referring Provider Family Medicine; Visit Provider Podiatrist | DX: L60.3 Nail dystrophy (principal); I73.89 Other specified peripheral vascular diseases; D50.8 Other iron deficiency anemias; B35.1 Tinea unguium; R09.89 Other specified symptoms and signs involving the circulatory and respiratory systems; R60.0 Localized edema; R20.8 Other disturbances of skin sensation; I83.93 Asymptomatic varicose veins of bilateral lower extremities; L65.9 Nonscarring hair loss, unspecified; R23.8 Other skin changes; L60.2 Onychogryphosis | CPT/HCPCS: 11721 ==

== ENCOUNTER 2025-06-09 13:00 | Outpatient (RCR) | payer SELFPAY ==
[2025-05-10 13:32] VITALS: BP 148/71; PULSE 58
[2025-05-17 13:44] VITALS: BP 150/58; PULSE 60
[2025-05-19 13:20] VITALS: BP 143/62; PULSE 54
[2025-05-24 13:53] VITALS: BP 140/56; PULSE 57
[2025-05-26 13:08] VITALS: BP 136/61; PULSE 58; O2SAT 94
[2025-05-31 14:18] VITALS: BP 143/60; PULSE 58
[2025-06-02 13:20] VITALS: BP 149/61; PULSE 62
[2025-06-07 14:50] VITALS: BP 140/62; PULSE 56
[2025-06-09 13:18] VITALS: BP 143/53; PULSE 60
== END 2025-06-09 23:59 | disposition home or self-care (01) ==
LOC: CR 13:00
PROVIDERS: PCP Family Medicine; Visit Provider Internal Medicine Cardiovascular Disease
DX: R69 Illness, unspecified (principal)

== ENCOUNTER 2025-07-07 13:00 | Outpatient (RCR) | payer SELFPAY ==
[2025-06-10 00:24] VITALS: BP 143/53; PULSE 60
[2025-06-14 13:49] VITALS: BP 139/54; PULSE 53
[2025-06-16 13:47] VITALS: BP 133/54; PULSE 52
[2025-06-21 13:00] VITALS: BP 150/59; PULSE 53
[2025-06-23 13:35] VITALS: BP 137/59; PULSE 58
[2025-06-28 13:24] VITALS: BP 135/55; PULSE 55
[2025-06-30 13:10] VITALS: BP 140/56; PULSE 64
[2025-07-05 13:28] VITALS: BP 147/61; PULSE 54
== END 2025-07-10 23:59 | disposition home or self-care (01) ==
LOC: CR 13:00
PROVIDERS: PCP Family Medicine; Visit Provider Internal Medicine Cardiovascular Disease
DX: R69 Illness, unspecified (principal)

== ENCOUNTER 2025-08-09 13:00 | Outpatient (RCR) | payer SELFPAY ==
[2025-07-12 13:47] VITALS: BP 139/58; PULSE 70
[2025-07-14 13:12] VITALS: BP 149/56; PULSE 50
[2025-07-19 13:23] VITALS: BP 145/63; PULSE 52
[2025-07-21 14:12] VITALS: BP 153/53; PULSE 66
[2025-07-26 13:19] VITALS: BP 144/54; PULSE 56
[2025-08-02 14:31] VITALS: BP 150/59; PULSE 62
[2025-08-04 13:18] VITALS: BP 149/58; PULSE 56
[2025-08-09 14:41] VITALS: BP 150/55; PULSE 55
== END 2025-08-09 23:59 | disposition home or self-care (01) ==
LOC: CR 13:00
PROVIDERS: PCP Family Medicine; Visit Provider Internal Medicine Cardiovascular Disease
DX: R69 Illness, unspecified (principal)

== ENCOUNTER 2025-09-08 13:00 | Outpatient (RCR) | payer SELFPAY ==
[2025-08-10 00:10] VITALS: BP 150/55; PULSE 55
[2025-08-11 13:17] VITALS: BP 146/48; PULSE 53
[2025-08-16 14:05] VITALS: BP 144/57; PULSE 61
[2025-08-23 13:28] VITALS: BP 152/60; PULSE 52
[2025-08-25 13:25] VITALS: BP 138/64; PULSE 66
[2025-08-30 13:11] VITALS: BP 161/61; PULSE 51
[2025-09-06 13:21] VITALS: BP 150/60; PULSE 52
[2025-09-08 13:12] VITALS: BP 154/63; PULSE 57; O2SAT 98
== END 2025-09-09 23:59 | disposition home or self-care (01) ==
LOC: CR 13:00
PROVIDERS: PCP Family Medicine; Visit Provider Internal Medicine Cardiovascular Disease
DX: R69 Illness, unspecified (principal)

== ENCOUNTER → 2025-09-20 13:58 | Outpatient (BNVA) | payer MEDICARE, BC, SELFPAY | PROVIDERS: PCP Family Medicine; Referring Provider Family Medicine; Visit Provider Podiatrist | DX: L60.3 Nail dystrophy (principal); B35.1 Tinea unguium; I73.89 Other specified peripheral vascular diseases; D50.8 Other iron deficiency anemias; R09.89 Other specified symptoms and signs involving the circulatory and respiratory systems; R60.0 Localized edema; I83.93 Asymptomatic varicose veins of bilateral lower extremities; R20.8 Other disturbances of skin sensation; L65.9 Nonscarring hair loss, unspecified; R23.4 Changes in skin texture; L60.2 Onychogryphosis | CPT/HCPCS: 11721 ==

== ENCOUNTER 2025-10-04 13:00 | Outpatient (RCR) | payer SELFPAY ==
[2025-09-10 00:21] VITALS: BP 154/63; PULSE 57
[2025-09-13 13:34] VITALS: BP 154/54; PULSE 59
[2025-09-15 13:13] VITALS: BP 162/61; PULSE 52
[2025-09-20 13:13] VITALS: BP 145/54; PULSE 52
[2025-09-22 13:26] VITALS: BP 156/54; PULSE 51
[2025-09-27 13:21] VITALS: BP 150/55; PULSE 54
[2025-09-29 14:18] VITALS: BP 156/58; PULSE 50
[2025-10-04 13:19] VITALS: BP 144/53; PULSE 50
== END 2025-10-09 23:59 | disposition home or self-care (01) ==
LOC: CR 13:00
PROVIDERS: PCP Family Medicine; Visit Provider Internal Medicine Cardiovascular Disease
DX: R69 Illness, unspecified (principal)

== ENCOUNTER 2025-11-01 13:00 | Outpatient (RCR) | payer SELFPAY ==
[2025-10-10 00:18] VITALS: BP 144/53; PULSE 50
[2025-10-11 13:43] VITALS: BP 181/59; PULSE 53
[2025-10-13 13:29] VITALS: BP 152/58; PULSE 61
[2025-10-18 13:21] VITALS: BP 159/55; PULSE 53
[2025-10-20 13:47] VITALS: BP 146/55; PULSE 52
[2025-11-01 13:38] VITALS: BP 153/62; PULSE 55
== END 2025-11-09 23:59 | disposition home or self-care (01) ==
LOC: CR 13:00
PROVIDERS: PCP Family Medicine; Visit Provider Internal Medicine Cardiovascular Disease
DX: R69 Illness, unspecified (principal)

== ENCOUNTER 2025-11-01 22:20 | Emergency (ER) | payer MEDICARE, BC, SELFPAY ==
[2025-11-01 22:21] VITALS: BP 206/62; PULSE 64; RESP 18; TEMP 36.7; O2SAT 97
[2025-11-01 22:25] VITALS: BP 206/62; PULSE 64; RESP 18; TEMP 36.7; O2SAT 97
--- NOTE | 2025-11-01 23:13 | ED.GENADUL_ITS ---
Discharge Plan Disposition Patient Disposition: Home Condition: Good Discharge Details Clinical Impression: Surgical wound hemorrhage after dental procedure Primary Care Provider: Johnathon Palm ED Provider: Lito Stevens Home Meds and New Rx's Prescriptions: No Action Eliquis 5 mg tablet 5 mg PO BID Qty: 180 0RF clopidogrel 75 mg tablet 75 mg PO DAILY Qty: 90 3RF Rx Instructions: anti-platelet agent due to coronary disease, intolance of ASA clindamycin HCl 300 mg capsule 600 mg PO PRN Qty: 2 12RF Rx Instructions: TAKE 600 MG 30-60 MINUTES PRIOR TO DENTAL PROCEDURES ketoconazole 2 % cream 1 applic topical DAILY Qty: 60 6RF Rx Instructions: Apply 1gram to toenails once daily, at opposite time from Urea 40%. cholecalciferol (vitamin D3) [Vitamin D3] 1,000 UNIT capsule 1,000 unit PO DAILY Qty: 100 Rx Instructions: Vitamin D supplement acetaminophen [Acetaminophen Extra Strength] 500 MG tablet 1,000 mg PO Q6H PRN fluticasone propionate 16 GM spray,suspension 2 inh NS BID PRNQty: 1 Rx Instructions: seasonally for allergies niacinamide [Niacin (niacinamide)] 500 mg tablet 500 mg PO BID Patient Comments: [facility] [place] derm report 08/26/18. take twice daily. Terry Fortuen Dorthea Barton, MD atorvastatin 80 mg tablet 80 mg PO DAILY Qty: 90 3RF Rx Instructions: lower risk of repeat heart events, lower cholesterol lisinopril 20 mg tablet 20 mg PO DAILY Qty: 90 3RF metoprolol tartrate 25 mg tablet 25 mg PO BID Qty: 180 3RF amlodipine 10 mg tablet See Rx Instructions .ROUTE .COMPLEX Qty: 90 3RF Dose Instruction: TAKE ONE TABLET BY MOUTH EVERY DAY Rx Instructions: TAKE ONE TABLET BY MOUTH EVERY DAY lisinopril-hydrochlorothiazide 20-25 mg tablet 1 tab PO DAILY 90 Days Qty: 90 3RF Rx Instructions: control BP <140/80 ezetimibe 10 mg tablet See Rx Instructions .ROUTE .COMPLEX Qty: 90 6RF Dose Instruction: TAKE ONE TABLET BY MOUTH AT BEDTIME Rx Instructions: TAKE ONE TABLET BY MOUTH AT BEDTIME latanoprost 0.005 % drops 1 drp ophthalmic (eye) HS Patient Comments: INSTILL ONE DROP INTO BOTH EYES EVERY NIGHT DIRECTED Discharge Instructions Instructions: Bleeding After Surgery Additional Instructions: At this time you have been observed for a notable amount of time and the bleeding has definitively stopped. Please hold this morning's Eliquis dose. If the bleeding recurs, please take a teabag with black tea and bite down firmly to the bleeding area with a teabag. If the bleeding persist please return for reassessment and bleeding control. Please only have liquid foods for the next 24 to 48 hours, and then gently transition gradually to soft foods to prevent any irritation to the postoperative area. If you notice any worsening of your symptoms, or any new symptoms such as vomiting, diarrhea, fever, chills, shortness of breath, chest pain, numbness, weakness, or fainting , please return immediately to the emergency department for reevaluation. Please follow up with your primary care provider as soon as possible for reassessment and reevaluation. As always, it was a pleasure participating in your medical care today. Stand Alone Forms: Portal Information Referrals: Johnathon Palm DO [Primary Care Provider, Medicine] [facility] General Date/Time Provider Initiated Documentation: 11/01/25 23:13 . HPI Narrative: This is a 80-year-old male with a past medical history of hypertension, coronary artery disease, atrial fibrillation on Eliquis, who presents today for evaluation of bleeding postoperative site. Patient had a tooth extraction over a week ago, he was doing fine until the stitches came out tonight. He then experienced significant/severe bleeding. The bleeding has been going on for about 15 minutes prior to arrival. He denies any lightheadedness or syncope. He denies any trauma to the mouth. He denies any fever or chills. No other complaints at this time. Related Data Home Medications ?Medication ?Instructions ?Recorded ?Confirmed cholecalciferol (vitamin D3) 25 1,000 unit PO DAILY #1 00 tab-caps 10/16/15 11/01/25 mcg (1,000 unit) capsule (Vitamin D3) acetaminophen 500 mg tablet 1,000 mg PO Q6H PRN 11/01/25 (Acetaminophen Extra Strength) fluticasone propionate 50 2 inh NS BID PRN #1 spray 11/01/25 mcg/actuation nasal spray,suspension niacinamide 500 mg tablet (Niacin 500 mg PO BID 11/01/25 (niacinamide)) latanoprost 0.005 % eye drops 1 drp ophthalmic (eye) H S 04/17/21 11/01/25 atorvastatin 80 mg tablet 80 mg PO DAILY #90 tabs 12/1211/01/25 ketoconazole 2 % topical cream 1 applic topical DAILY #60 grams 02/27/25 11/01/25 lisinopril 20 mg tablet 20 mg PO DAILY #90 tabs 03/1011/01/25 metoprolol tartrate 25 mg tablet 25 mg PO BID #180 tab s 04/18/25 11/01/25 amlodipine 10 mg tablet See Rx Instructions .Route 0 05/19/25 11/01/25 .COMPLEX #90 tabs lisinopril 20 1 tab PO DAILY 90 days #90 t ab-caps 06/09/25 11/01/25 mg-hydrochlorothiazide 25 mg tablet apixaban 5 mg tablet (Eliquis) 5 mg PO BID #180 tabs 1 11/30/24 11/01/25 clindamycin HCl 300 mg capsule 600 mg (2 x 300 mg) PO PRN #2 09/30/25 11/01/25 tab-caps clopidogrel 75 mg tablet 75 mg PO DAILY #90 tab-caps 09/30/25 11/01/25 ezetimibe 10 mg tablet See Rx Instructions .Route 1 12/04/24 11/01/25 .COMPLEX #90 tabs Previous Rx's ?Medication ?Instructions ?Recorded atorvastatin 80 mg tablet 80 mg PO DAILY #90 tabs 12/12 12/04 ketoconazole 2 % topical cream 1 applic topical DAILY #60 grams 02/27/25 lisinopril 20 mg tablet 20 mg PO DAILY #90 tabs 03/10 08/04 metoprolol tartrate 25 mg tablet 25 mg PO BID #180 tab s 04/18/25 amlodipine 10 mg tablet See Rx Instructions .Route 0 05/19/25 .COMPLEX #90 tabs lisinopril 20 1 tab PO DAILY 90 days #90 t ab-caps 06/09/25 mg-hydrochlorothiazide 25 mg tablet apixaban 5 mg tablet (Eliquis) 5 mg PO BID #180 tabs 1 11/30/24 clindamycin HCl 300 mg capsule 600 mg (2 x 300 mg) PO PRN #2 09/30/25 tab-caps clopidogrel 75 mg tablet 75 mg PO DAILY #90 tab-caps 09/30/25 ezetimibe 10 mg tablet See Rx Instructions .Route 1 12/04/24 .COMPLEX #90 tabs Allergies Allergy/AdvReac Type Severity Reaction Status Date / Time Penicillins Allergy Severe Swelling/Ed Verified 09/30/25 13:22 robyn aspirin AdvReac Intermediate iron def Verified 09/30/25 13:22 pollen Allergy Mild unknown Uncoded 09/30/25 13:22 General Stated Complaint: DentalOral HENRIQUE: 3 Exam Narrative Exam Narrative: 1.Const: Well-nourished, Well-developed, appearing stated age 2.Eyes: PERRL, no conjunctival injection, and symmetrical lids. 3.ENT: Atraumatic external nose and ears. Moist MM. Neck: Symmetric, trachea midline, No thyromegaly. Right lower posterior molars are surgically extracted, persistent brisk ooze coming from the postoperative's/eschar site. 4.CVS: +S1/S2, Peripheral pulses 2+ and equal in all extremities. Brisk capillary refill in all extremities. 5.RESP: Unlabored respiratory effort. Clear to auscultation bilaterally. No wheezes rales or rhonchi 6.GI: Soft, Nontender/Nondistended, No hepatosplenomegaly. No guarding or rebound. 7.MSK: Normocephalic/Atraumatic, Extremities w/o deformity or ttp No cyanosis or clubbing, Normal movement of all extremities 8.Skin: Warm, Dry. No rashes or lesions. 9.Neuro: obstetrician and gynaecologist II-XII grossly intact. Sensation grossly intact, no focal neurologic deficits. 10.Psych: (AAO) x3. Appropriate mood and affect Course Vital Signs Vital signs: Vital Signs Temperature 36.7 C 11/01/25 22: Pulse 64 11/01/25 22:21 Respiratory Rate 18 11/01/25 22:21 Blood Pressure 206/62 H 11/01/25 22:21 Pulse Oximetry 97 11/01/25 22:21 Temperature 36.7 C 11/01/25 22:25 Temperature Source Temporal Artery Scan 11/01/25 22:25 Pulse 64 11/01/25 22:25 Respiratory Rate 18 11/01/25 22:25 Blood Pressure 206/62 H 11/01/25 22:25 Blood Pressure Position Sitting 11/01/25 22:25 Pulse Oximetry 97 11/01/25 22:25 Oxygen Delivery Method Room Air 11/01/25 22:25 Oxygen Flow Rate 0 11/01/25 22:25 Pain Level 0 11/01/25 22:25 Procedure Nerve Block 1st Nerve Block: Date of Procedure: 11/01/25 Time of procedure: 23:49 Provider that performed the procedure: Lito Stevens Indication: Procedural Standard Time Out Performed: Yes Patient Consented: Verbally Laterality: Right Intraoral Nerve Block: inferior alveolar Ultrasound: Not used Paresthesia: None Procedure Tolerated: No Complications Procedure Outcome: Successful Medical Decision Making This is a 80-year-old male with a past medical history of hypertension, coronary artery disease, atrial fibrillation on Eliquis, who presents today for evaluation of bleeding postoperative site. Patient had a tooth extraction over a week ago, he was doing fine until the stitches came out tonight. He then experienced significant/severe bleeding. The bleeding has been going on for about 15 minutes prior to arrival. He denies any lightheadedness or syncope. He denies any trauma to the mouth. He denies any fever or chills. No other complaints at this time. Physical exam demonstrates postoperative tooth extraction site to have a persistent ooze. Notable large clots are present in the mouth. Clots were removed and teabag has been applied to the oozing site. We will continue compression to this area and then reassess. 11:47 PM Teabag was unsuccessful and creating hemostasis. The area was again washed out, Surgicel was applied to the area followed by TXA soaked gauze, and 7 mL of li docaine with epinephrine were injected into the area. Bleeding stopped, he was observed for 30 minutes and bleeding continued to stop. We will continue to monitor with compression for any further bleeding 6 AM Patient was observed throughout the night, no bleeding recurred. Patient has tolerated the procedure well and is stable. Vital signs demonstrate no tachycardia or hypotension. Patient will be discharged home. Recommend holding Eliquis for this morning, and having a liquid diet for the next 48 hours. Discussed red flags for which to return. I have extensively reviewed the [facility] ent plan and discharge instructions with the patient. I have addressed all patient concerns at this time. The patient was made aware of what symptoms to monitor for that would warrant a return to the emergency department. Discussed the plan with the patient, they demonstrate verbal understanding and agreement with our assessment and plan at this time. The documentation in this chart was dictated using Stypi dictation software. Please excuse any dictation errors. PFSH All Active Problems Surgical wound hemorrhage after dental procedure (Acute) Atrial fibrillation (Chronic) Posterior tibial tendon dysfunction (PTTD) of left lower extremity (Acute) Pain in right ankle (Acute) Pain in left ankle (Acute) Tear of left plantar calcaneonavicular ligament (Acute) Tinea pedis (Acute) Onychomycosis (Acute) Squamous cell carcinoma in situ (SCCIS) of scalp (Acute) [facility] MOHS Note 08/06/23 Corns and callosities (Acute) Nail dystrophy (Acute) Neoplasm of unspecified behavior of bone, soft tissue, and skin (Acute) ASCVD (arteriosclerotic cardiovascular disease) (Acute) Hearing loss (Acute) Pacemaker (Acute) [facility] bradycardia [facility] 05/02/22 Erosive pustular dermatosis of scalp (Acute) 12/24/21 [facility] Derm, cryotherapy done Solar lentigo (Acute) Multiple benign nevi (Acute) Seborrheic keratosis (Acute) Difficult airway for intubation (Acute) 10/30/21 Unable to pass ETT past cords, Grade 1 view with Glidescope 3, post attempt neck CT shows deviated trachea and thyroid nodule. Suggest FOB in future. Right thyroid nodule (Acute) Right inguinal hernia (Acute) Obstructive sleep apnea of adult (Chronic) C-PAP, Chenne-Guzman resp suspected on 12/12/20 EKG, Echo in April 2021 Diverticulosis of colon without diverticulitis (Acute 02/28/12) Impaired fasting glucose (Acute 02/28/12) Kidney stone (Acute 10/09/89) Pruritic rash (Acute 07/05/16) Right carotid bruit (Acute 11/09/99) see notes from [facility] vascular 2020. Actinic keratosis (Acute) 01/25/19 - shave biopsy. [facility] [place] derm. FILI Jurado. 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 Assymptomatic Overweight (Chronic 11/09/84) GOAL 220 LBS 02/2013 Other iron deficiency anemias (Chronic 12/11/15) Neg Stool 10/2015, Colon 08/25/15; EGD: duodenitis & reactive chemical gastropathy stomach 04/2017 Obstructive sleep apnea syndrome (Chronic 05/21/05) ONLY IF SLEEPS ON BACK, SNORES 11/29/15 Moderate with mild nocturnal hypoxemia Need for prophylactic antibiotic (Chronic 02/07/16) following Mitral Valve Repair; Clindamycin 600 mg 30 min prior to dental cleaning ([place]) Hyperlipidemia (Chronic 07/10/85) GOAL LDL<70 (77 [place] 2011) Essential hypertension (Chronic 11/09/90) Dermatitis (Chronic 06/19/15) R pelvic area in hotter weather, responds to TCA Chronic ischemic heart disease, unspecified (Chronic 05/10/07) NV, CABG X 3 ([facility]); repeat cath 10/02/15: one graft occluded, ref MR surg 01/2016; EF 63% [facility] ECHO 03/2016 Anemia (Chronic 10/16/15) Signed copy of advance directive in patient notes (Chronic 02/28/12) Medical History Multiple nevi 07/24/22 Derm (benign) Personal history of other malignant neoplasm of skin Anticoagulant long-term use (03/06/16) Obesity HTN (hypertension) Cataract RIGHT EYE Iron deficiency anemia PVD (peripheral vascular disease) Chronic ischemic heart disease HARISH (obstructive sleep apnea) History of mitral valve repair Surgical History History of Mohs surgery for squamous cell carcinoma of skin (03/18/22) central scalp H/O right inguinal hernia repair (~12/18/21) Attempted 10/30/21 unable to complete related anesthesia problems S/P carotid endarterectomy (08/10/19) with stent H/O: hemorrhoidectomy (~11/10/69) History of extraction of renal calculus (~09/1989) KESHAV Gomez S/P cataract extraction (~11/10/03) left H/O umbilical hernia repair (07/12/05) 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) Mitral Valve Repair (02/07/16) Dr Luna, [facility] with CABG X 1 EGD - MAC (03/28/17) Colonoscopy - IV Sedation (04/19/13) [place] 2005 COLNOSCOPY W/IV (08/25/15) LARA ROBBINS Family History Mother COPD (chronic obstructive pulmonary disease) Osteoporosis Hypertension Father , embolism at age 37. Embolism Social History Smoking/Tobacco Use Status: Never Second Hand Exposure: No Smoking risk assessment performed?: Yes Alcohol Intake: current Alcohol Intake frequency: a few times a month Alcohol type: wine Drug use: Never Substance use type: does not use Adopted: No Caregiver/Support person: No Foster care: No Household members: spouse Housing: house Number of Children: 3 number of grandchildren: 2 Communication Needs: Hard of Hearing and Corrective Lenses Education Level: master's degree Do you need help understanding health information?: Never current occupation: Retired Pets and animals: No Sexually active: Yes Do you think of yourself as: straight/heterosexual Current gender identity: male What is your relationship status?: How often do you talk on the phone with friends or family?: twice per week How often do you get together with friends or relatives?: once per week Do you belong to any clubs or organized social groups?: no Panel score (0-1 are the most socially isolated patients): 2 What type of physical activity do you participate in: walking and other Details: Rowing 30 min daily; exercise, stretching, cardiac rehab Duration: 60-90 minutes/day Frequency: 5-6 times per week Britni/Pentecostal: Religious Special britni needs: No Seatbelt use: always Helmet use: Yes Helmet use: always Drive intox or ride w/intox cross country truck driver: No Water heater temp set <120 deg: Yes Working smoke detector in home: Yes Fire extinguisher in home: Yes Carbon monox detector in home: Yes Firearms in home: No Do you feel safe at home: Yes Do you feel safe in your relationship?: Yes Victim of physical abuse: No Victim of emotional abuse: No Victim of sexual abuse: No Additional Social history: unable to assess kodi
[2025-11-02] VITALS (34 sets, daily range): BP systolic 173–180; BP diastolic 50–58; PULSE 50–65; O2SAT 95–98
[2025-11-02] MEDS: Cellulose,Oxidized 2X3 PKT 1 EACH MC ×2 (06:45)
[2025-11-02] MEDS: Lidocaine 1% Pres-Free W/EPI 1/200,000 30 ML VIAL (06:46)
[2025-11-02] MEDS: Tranexamic Acid 1,000 MG/10 ML VIAL 1000 MG (06:47)
== END 2025-11-02 06:20 | disposition home or self-care (01) ==
PROVIDERS: Emergency Provider Student in an Organized Health Care Education/Training Program; PCP Family Medicine
DX: K91.840 Postprocedural hemorrhage of a digestive system organ or structure following a digestive system procedure (principal); Z98.818 Other dental procedure status
CPT/HCPCS: 99283 ×2; J2004